=== PATIENT | male | born 1945 | race Caucasian/White ===

== ENCOUNTER → 2018-03-09 14:57 | Outpatient (CLI) | payer OTHER, MEDICAID, SELFPAY ==
--- NOTE | 2018-03-13 16:14 | PM.PFT.1 ---
Pulmonary Function Test Referral & Results Date Patient Seen: 03/09/18 Requesting provider: Allegra Romero Indication: Amiodarone therapy Results: The spirometry demonstrates an FVC of 4.10 L which is 106% of predicted. The FEV1 was measured at 3.01 L which is 102% of predicted. The FEV1/FVC ratio was 70 for which is 96% of predicted. Following the administration of bronchodilator there was a 45% improvement in FEF 25-75%. Lung volumes show an SVC of 4.72 L which is 133% of predicted. The diffusing capacity was measured at 35.33 which is 104% of predicted. The maximum voluntary ventilation was normal. Interpretation: This study demonstrates normal spirometry and normal diffusing capacity.
== END ==
PROVIDERS: Family Provider Internal Medicine; PCP Internal Medicine; Visit Provider Internal Medicine Cardiovascular Disease
DX: Z51.81 Encounter for therapeutic drug level monitoring (principal); Z79.899 Other long term (current) drug therapy
CPT/HCPCS: 94010; 94060; 94726; 94729

== ENCOUNTER → 2018-06-12 14:33 | Outpatient (CLI) | payer OTHER, MEDICAID, SELFPAY ==
[2018-06-12 16:36] LABS: Alanine Aminotransferase 25 IU/L (21-72); Albumin 4.1 g/dL (3.5-5.0); Albumin Globulin Ratio 1.2 (1.0-2.8); Alkaline Phosphatase 77 U/L (38-126); Aspartate Aminotransferase 26 IU/L (17-59); BUN Creatinine Ratio 16.7 (6-22); Bilirubin Total 0.7 mg/dL (0.2-1.3); Blood Urea Nitrogen 15 mg/dL (9-20); Calcium 9.6 mg/dL (8.4-10.2); Carbon Dioxide 28 mmol/L (22-32); Chloride 102 mmol/L (98-107); Estimated Glomerular Filt Rate > 60.0 mL/min (>60); Globulin 3.3 g/dL (1.7-4.1); Glucose 105 mg/dL (80-110); HEMOLYSIS < 15 (0-50); Potassium 3.9 mmol/L (3.4-5.1); Sodium 140 mmol/L (137-145); Total Protein 7.4 g/dL (6.3-8.2)
[2018-06-12 17:02] LABS: Thyroid Stimulating Hormone 1.44 uIU/mL (0.47-4.68)
== END ==
PROVIDERS: Family Provider Internal Medicine; PCP Internal Medicine; Visit Provider Internal Medicine Cardiovascular Disease
DX: Z51.81 Encounter for therapeutic drug level monitoring (principal); Z79.899 Other long term (current) drug therapy
CPT/HCPCS: 36415; 80053; 84443

== ENCOUNTER 2018-07-03 10:51 | Day surgery (SDC) | payer OTHER, MEDICAID, SELFPAY ==
--- NOTE | 2018-07-03 | PATH_ITS ---
[facility] Accession Number: [id number] . 01 Material submitted: . PART A: SIGMOID POLYPS AT 20CM X3 PART B: BIOPSY POLYP AT ILEAL CECAL VALVE PART C: ASCENDING COLON POLYP AT 85CM . 02 Diagnosis: A. Sigmoid Polyps at 20 cm x3: Sessile serrated adenoma (multiple fragments). . B. Biopsy Polyp at Ileocecal Valve: Sessile serrated adenoma (multiple fragments). . C. Ascending Colon Polyp at 85 cm, Biopsy: Portions of sessile serrated adenoma x2. MRV/07/05/2018 . 02 Electronically signed: . Gabi Fritz MD, Pathologist NPI- [id number] . 01 Gross description: . Part A: SIGMOID POLYPS AT 20CM X3: Received in formalin are multiple fragment(s) of trujillo, soft tissue measuring 1.6 x 0.5 x 0.3 cm in aggregate submitted entirely in 1 cassette(s) Part B: BIOPSY POLYP AT ILEAL CECAL VALVE: Received in formalin are multiple fragment(s) of trujillo, soft tissue measuring 1.4 x 0.4 x 0.3 cm in aggregate submitted entirely in 1 cassette(s) Part C: ASCENDING COLON POLYP AT 85CM: Received in formalin are 2 fragment(s) of trujillo, soft tissue measuring 1.1 x 0.5 x 0.5 cm to 0.6 x 0.5 x 0.5 cm which are inked, bisected and submitted entirely in 2 cassette(s) /CKI /CKI . 02 Pathologist provided ICD-10: K63.5 . 02 CPT . 066989, [id number], [id number] Performed at: [address] [id number] MD Nicholas Frederick MD Phone: [phone] Performed at: 02 [facility] [address] [place] [id number] MD Jose Daniel Ortiz MD Phone: [phone]
[2018-07-03 11:18] VITALS: BP 127/80; PULSE 57; RESP 16; TEMP 36.3; O2SAT 96; BMI 26.4
--- NOTE | 2018-07-03 11:21 | PM.PREOP ---
Pre-operative Note Interval Note Pre-op Check: Yes History & Physical Reviewed by Physician and Yes Exam Performed Changes: No H&P completed within 30 days and has changed as indicated here:: Patient seen and examined again today. His history physical examination as documented and on the chart in the last 30 days has not changed. He has stopped his anticoagulation accordingly. We will proceed with colonoscopy under anesthesia today as planned.
[2018-07-03] MEDS: LACTATED RINGERS 1,000 ML 100 ML IV (11:23)
[2018-07-03] MEDS: LACTATED RINGERS 1,000 ML 42 ML IV (12:17)
[2018-07-03 12:27] VITALS: BP 107/72; PULSE 52; RESP 15; TEMP 36.2; O2SAT 100
--- NOTE | 2018-07-03 12:30 | PM.OP.ENDO ---
Operative Date/Time/Diagnoses Date of procedure: 07/03/18 Time of procedure: 12:30 Pre-op diagnosis: Colorectal screening Post-op diagnosis: other (Pandiverticulosis and multiple colon polyps) Procedure & Clinicians Study performed: Colonoscopy with hot snare polypectomy, Mayte ink tattoo injection, and cold forceps polypectomies Same procedure as scheduled: Yes Indications: 73-year-old male presenting for colorectal screening. He has never had any type of examination for such. However, he has multiple comorbid medical conditions including coronary disease, atrial fibrillation with uncontrolled rate, prior transient ischemic attacks, and chronic anticoagulation therapy. Therapy was adjusted accordingly but Anesthesia Services were clearly indicated given the patient's significant comorbid medical conditions, elevated ASA categorization, and risk of bleeding. Therefore colonoscopy was planned in conjunction with anesthesia. Surgeon: Anand Daniels Procedure Notes SCOAP/Timeout: Yes Procedure in detail: After obtaining informed consent, the patient was brought to the GI suite and placed in the left lateral decubitus position on the examination table. After placement of appropriate monitors, the patient was given incremental doses of anesthesia. Please see the anesthesia record for details. A time out was held per SCOAP protocol. A digital rectal examination was performed and did not reveal any masses or obstructing lesions. The colonoscope was gently passed into the patient's anus and the entire colon navigated to the level of the cecum with minimal difficulty. Once in the cecum, the scope was withdrawn being sure to go before and beyond all mucosal folds and prominences and get an excellent examination. The findings are noted above. Mayte ink tattoo was performed at the site of the ascending colon polyp at 85 cm. At the level of the rectal vault, the scope was retroflexed and the internal anal canal was examined. The scope was straightened and air aspirated from the colon. The instrument was removed from the patient's body and the procedure was concluded. The patient was allowed to awaken from sedation without difficulty and taken to the post-anesthesia care unit in good condition. Scope withdrawal time: 23:14 min Sedation minutes: 0 Findings: diverticulosis and polyp (Multiple polyps at ileocecal valve, ascending colon, and sigmoid colon) Specimen(s): other (1. Ileocecal valve polyp biopsies 2. Ascending colon polyp at 85 cm 3. Sigmoid colon polyps x3 at 20 cm) Complications: none Recommendations: Colonscopy in 3 years (Pending biopsy results), High fiber diet and Will call with biopsy results Plan for aftercare: 1. Discharged home 2. Repeat colonoscopy in 3 years pending biopsy results Follow up: as needed Disposition: PACU
[2018-07-03 12:31] VITALS: BP 103/69; PULSE 53; RESP 12; O2SAT 99
--- NOTE | 2018-07-03 12:31 | SUR.PHASEI ---
awake and responding, oxygen discontinued.
[2018-07-03 12:36] VITALS: BP 101/75; PULSE 56; RESP 13; O2SAT 97
[2018-07-03 12:43] VITALS: BP 114/80; PULSE 54; RESP 15; O2SAT 98
[2018-07-03 13:12] VITALS: BP 112/78; PULSE 60; RESP 15; O2SAT 98
--- NOTE | 2018-07-03 13:19 | SUR.PHASEII ---
patient ready for discharge waiting for ride
--- NOTE | 2018-07-03 13:50 | SUR.PHASEII ---
patient left without written copy of discharge instruction. patient called message left on phone reviewing discharge instructions verbally. written copy mailed to patient.
== END 2018-07-03 13:30 | disposition home or self-care (01) ==
PROVIDERS: Family Provider Internal Medicine; PCP Internal Medicine; Visit Provider Surgery
PROC: 0DJD8ZZ Inspection of Lower Intestinal Tract, Via Natural or Artificial Opening Endoscopic (ICD-10-PCS; CPT 45378; principal; 2018-07-03 11:45)
DX: Z12.11 Encounter for screening for malignant neoplasm of colon (principal); I25.10 Atherosclerotic heart disease of native coronary artery without angina pectoris; Z86.73 Personal history of transient ischemic attack (TIA), and cerebral infarction without residual deficits; I10 Essential (primary) hypertension; Z79.01 Long term (current) use of anticoagulants; K57.30 Diverticulosis of large intestine without perforation or abscess without bleeding; D12.0 Benign neoplasm of cecum; D12.2 Benign neoplasm of ascending colon; D12.5 Benign neoplasm of sigmoid colon
CPT/HCPCS: 45381; 45385; 45380; 88305; J2250; J2704; J3010

== ENCOUNTER → 2019-03-26 15:47 | Outpatient (CLI) | payer OTHER, SELFPAY | PROVIDERS: Family Provider Internal Medicine; PCP Internal Medicine; Visit Provider Internal Medicine Cardiovascular Disease | DX: Z51.81 Encounter for therapeutic drug level monitoring (principal); Z79.899 Other long term (current) drug therapy | CPT/HCPCS: 36415; 84443 ==

== ENCOUNTER → 2019-10-14 16:25 | Outpatient (CLI) | payer OTHER, MEDICAID, SELFPAY ==
[2019-10-14 17:54] LABS: Alanine Aminotransferase 18 IU/L (<50); Albumin 4.1 g/dL (3.5-5.0); Albumin Globulin Ratio 1.4 (1.0-2.8); Alkaline Phosphatase 97 U/L (38-126); Aspartate Aminotransferase 31 IU/L (17-59); BUN Creatinine Ratio 18.9 (6-22); Bilirubin Total 0.5 mg/dL (0.2-1.3); Blood Urea Nitrogen 17 mg/dL (9-20); Calcium 9.8 mg/dL (8.4-10.2); Carbon Dioxide 30 mmol/L (22-32); Chloride 101 mmol/L (98-107); Estimated Glomerular Filt Rate > 60.0 mL/min (>60); Glucose 97 mg/dL (80-110); HEMOLYSIS < 15 (0-50); Potassium 4.3 mmol/L (3.4-5.1); Sodium 137 mmol/L (137-145); Total Protein 7.1 g/dL (6.3-8.2)
== END ==
PROVIDERS: Family Provider Internal Medicine; PCP Internal Medicine; Visit Provider Internal Medicine Cardiovascular Disease
DX: I48.0 Paroxysmal atrial fibrillation (principal)
CPT/HCPCS: 36415; 80053

== ENCOUNTER → 2020-06-11 12:15 | Outpatient (CLI) | payer OTHER, SELFPAY ==
[2020-06-11 13:43] LABS: Alanine Aminotransferase 23 IU/L (<50); Albumin 4.3 g/dL (3.5-5.0); Albumin Globulin Ratio 1.4 (1.0-2.8); Alkaline Phosphatase 91 U/L (38-126); Aspartate Aminotransferase 32 IU/L (17-59); BUN Creatinine Ratio 16.7 (6-22); Bilirubin Total 0.8 mg/dL (0.2-1.3); Blood Urea Nitrogen 12 mg/dL (9-20); Calcium 9.9 mg/dL (8.4-10.2); Carbon Dioxide 30 mmol/L (22-32); Chloride 102 mmol/L (98-107); Estimated Glomerular Filt Rate > 60.0 mL/min (>60); Globulin 3.1 g/dL (1.7-4.1); Glucose 103 mg/dL (80-110); HEMOLYSIS < 15 (0-50); Potassium 4.7 mmol/L (3.4-5.1); Sodium 136 mmol/L (137-145); Total Protein 7.4 g/dL (6.3-8.2)
== END ==
PROVIDERS: Family Provider Internal Medicine; PCP Student in an Organized Health Care Education/Training Program; Referring Provider Internal Medicine Cardiovascular Disease; Visit Provider Internal Medicine Cardiovascular Disease
DX: I48.0 Paroxysmal atrial fibrillation (principal)
CPT/HCPCS: 36415; 80053

== ENCOUNTER → 2020-07-07 14:45 | Outpatient (CLI) | payer OTHER, MEDICAID, SELFPAY ==
--- NOTE | 2020-07-07 15:03 | DI.ECHO.S_ITS ---
Echocardiogram Report + + :Name: YOLI MCKAY Study Date: 07/07/2020 Height: 71 in : :[facility] Weight: 199 lb : : Gender: Male BSA: 2.1 m2 : :: 1945 Age: 75 yrs BP: 127/86 mmHg: :Reason For Study: VALVULAR INSUFFICIENCY : :Ordering Physician: TEA, : :BERNABE Performed By: Carli Astudillo : :Referring: BERNABE METCALF : + + Interpretation Summary The left ventricle is normal in size. The ejection fraction is estimated to be 60-65%. There has been no significant change in LV EF since the previous exam. The right ventricle is mildly dilated. The right ventricular systolic function is normal. There is moderate mitral regurgitation. The mitral regurgitant jet is eccentrically directed. Compared to the prior echo study, there has been a decrease in the severity of mitral regurgitation. There is mild aortic regurgitation. There is mild tricuspid regurgitation. Compared to the prior echo exam, there has been a decrease in TR severity. The right ventricular systolic pressure is estimated to be at least 27 mmHg based on an estimated right atrial pressure of 3 mm Hg. Compared to the prior echo exam, there has been a decrease in the severity of pulmonary hypertension. The ascending aorta is mildly enlarged. Procedure: A two-dimensional transthoracic echocardiogram with color flow and Doppler was performed. The study quality was technically adequate. Comparison is made with the echocardiogram of 02/09/2017. The patient was in sinus rhythm with heart rates between 56-63 bpm during the exam. Left Ventricle: The left ventricle is normal in size. Proximal septal thickening is noted. A false chord is noted (normal variant). The ejection fraction is estimated to be 60-65%. There has been no significant change since the previous exam. There are no focal wall motion abnormalities. MV E/A: 1.1 Med Peak E' Chucky: 6.5 cm/sec E/E' med: 9.1. Right Ventricle: The right ventricle is mildly dilated. The right ventricular systolic function is normal. Atria: Both atria are mildly dilated. Both atria have significantly decreased in size since the prior echo exam. There is no Doppler evidence for an interatrial shunt. Mitral Valve: The mitral valve leaflets appear mildly thickened, but open well. There is mild mitral annular calcification. There is moderate mitral regurgitation. The mitral regurgitant jet is eccentrically directed. Compared to the prior echo study, there has been a decrease in the severity of mitral regurgitation. Aortic Valve: The aortic valve is trileaflet. The aortic valve opens well. The aortic valve is slightly calcified. There is no aortic valve stenosis. There is mild aortic regurgitation. Tricuspid Valve: The tricuspid valve is normal. There is mild tricuspid regurgitation. The right ventricular systolic pressure is estimated to be at least 27 mmHg based on an estimated right atrial pressure of 3 mm Hg. Compared to the prior echo exam, there has been a decrease in TR severity. Compared to the prior echo exam, there has been a decrease in the severity of pulmonary hypertension. Pulmonic Valve: The pulmonic valve leaflets are thin and pliable; valve motion is normal. There is mild pulmonic regurgitation. Great Vessels: The aortic root is normal size. The ascending aorta is mildly enlarged. There has been no significant change since the previous study. The IVC is of normal diameter and collapses greater than 50% with a sniff. This suggests a low right atrial pressure of 3 mm Hg. Pericardium/ Pleura There is no pericardial effusion. There is no pleural effusion. MMode/2D Measurements & Calculations LVIDd: 4.5 cm LVOT diam: 2.1 cm LVIDs: 2.9 cm Ao root diam: 3.8 cm FS: 35.1 % asc Aorta Diam: 3.9 cm EPSS: 0.50 cm Ao Arch Diam (Prox Trans): 2.6 cm IVSd: 1.1 cm LVPWd: 0.89 cm LV kirkland. diameter/BSA (cm/m^2): 2.1 LV sys. diameter/BSA (cm/m^2): 1.4 LA A2 area: 23.2 cm2 RA long axis: 6.7 cm LA A4 area: 23.8 cm2 RA area: 25.2 cm2 LA length (vol): 6.3 cm RA vol: 81.0 ml LA vol: 74.5 ml RA : 38.5 ml/m2 LA vol index: 35.4 ml/m2 IVC diam: 1.1 cm RVD1 (basal): 4.3 cm TAPSE: 2.8 cm Doppler Measurements & Calculations Ao V2 max: 141.7 cm/sec LVOT Max Chucky: 92.7 cm/sec Ao V2 mean: 84.7 cm/sec LV V1 max P.4 mmHg Ao max P.0 mmHg LV V1 VTI: 22.4 cm Ao mean P.5 mmHg DUSTY(I,D): 3.0 cm2 Ao V2 VTI: 26.4 cm DUSTY(V,D): 2.3 cm2 sev ratio: 0.85 DUSTY indexed to BSA (cm^2/m^2): 1.4 AI P1/2t: 1166 msec AI dec slope: 107.1 cm/sec2 MV E max chucky: 59.0 cm/sec TR max chucky: 245.1 cm/sec MV A max chucky: 55.8 cm/sec TR max P.0 mmHg MV E/A: 1.1 PA pr(Accel): 0.22 mmHg Med Peak E' Chucky: 6.5 cm/sec E/E' med: 9.1 Lat Peak E' Chucky: 8.2 cm/sec E/E' lat: 7.2 E/e' average: 8.2 MV dec time: 0.27 sec SV(LVOT): 78.0 ml Reading Physician:10:50 AM
== END ==
PROVIDERS: Family Provider Internal Medicine; PCP Student in an Organized Health Care Education/Training Program; Referring Provider Internal Medicine Cardiovascular Disease; Visit Provider Internal Medicine Cardiovascular Disease
DX: I08.3 Combined rheumatic disorders of mitral, aortic and tricuspid valves (principal); I77.89 Other specified disorders of arteries and arterioles
CPT/HCPCS: 93306

== ENCOUNTER 2020-12-14 13:56 | Emergency (ER) | payer OTHER, MEDICAID, SELFPAY ==
[2020-12-14] VITALS (24 sets, daily range): BP systolic 107–130; BP diastolic 79–97; PULSE 72–152; RESP 7–23; TEMP 36.1; O2SAT 92–97; BMI 28.1
--- NOTE | 2020-12-14 14:11 | ED.ARRPALP ---
HPI - Arrhythmia/Palpitations General Chief Complaint: Arrhythmia/Palpitations Stated Complaint: High Pulse, 155 BPM. Sent From Cardiology Time Seen by Provider: 12/14/20 14:02 Source: patient Mode of arrival: Wheelchair Limitations: no limitations History of Present Illness HPI narrative: 75-year-old male nonsmoker with history of AFib on Xarelto was sent by his grinder and plater for cardioversion. Patient has had palpitations for the past few days and bowel up with his grinder and plater who found him and in atrial flutter with a rate of the 150s. Patient has been on Xarelto for quite some time and has not missed a dose in the past 4 weeks. He is not dizzy nor weak or lightheaded. He denies any chest pain or shortness of breath. He denies any nausea, vomiting or diarrhea. He has had no fever or chills. Related Data Home Medications Medication Instructions Recorded Confirmed amiodarone 100 mg tablet 100 mg PO DAILY 06/27/18 07/03/18 cholecalciferol (vitamin D3) 50 2,000 unit PO DAILY 06/27/18 07/03/18 mcg (2,000 unit) capsule opmekjip-pie-pmpbm acid 300 1 tab PO DAILY 06/27/18 06/27/18 mcg-lycopene 600 mcg-lutein 300 mcg tablet vitamin B complex 1 tab PO DAILY 06/27/18 07/03/18 Previous Rx's Medication Instructions Recorded folic acid 1 mg PO QDAY #30 tab 02/12/17 metoprolol succinate 100 mg PO BID #60 tab 02/12/17 rivaroxaban [Xarelto] 10 mg PO QDAY #30 tab 02/12/17 enoxaparin 100 mg/mL subcutaneous 100 mg SUBCUT DAILY #5 ml 06/27/18 syringe amiodarone See Rx Instructions .ROUTE 12/14/20 .COMPLEX #91 tab Allergies Allergy/AdvReac Type Severity Reaction Status Date / Time No Known Drug Allergies Allergy Verified 12/14/20 14:08 Review of Systems Constitutional Constitutional: Denies chills, Denies fatigue, Denies fever(s), Denies frequent falls, Denies lethargy and Denies weakness Eyes Eyes: Denies change in vision, Denies eye discharge, Denies irritation and Denies loss of vision ENT Ears, Nose, Mouth, and Throat: Denies change in voice, Denies dizziness, Denies neck pain, Denies sore throat and Denies throat swelling Cardiovascular Cardiovascular: Denies chest pain, Reports irregular heart rhythm, Denies lightheadedness, Reports palpitations, Denies dyspnea, Denies dyspnea on exertion and Denies orthopnea Respiratory Respiratory: Denies cough, Denies dyspnea, Denies dyspnea on exertion and Denies wheezing Gastrointestinal Gastrointestinal: Denies abdominal pain, Denies change in bowel habits, Denies diarrhea, Denies nausea and Denies vomiting Musculoskeletal Musculoskeletal: Denies neck pain and Denies numbness Integumentary/Breasts Skin/Breast: Denies pruritus, Denies erythema, Denies rash and Denies wounds Neurologic Neurologic: Denies behavioral changes, Denies confusion, Denies dizziness, Denies frequent falls, Denies loss of vision, Denies numbness and Denies weakness Psychiatric Psychiatric: Denies anxiety, Denies behavioral changes, Denies confusion, Denies depression, Denies homicidal ideation and Denies suicidal ideation Endocrine Endocrine: Denies fatigue, Denies flushing and Reports palpitations Hematologic/Lymphatic Hematologic/Lymphatic: Denies easy bruising Allergic/Immunologic Allergic/Immunologic: Denies urticaria, Denies throat swelling and Denies wheezing Patient History Medical History Atrial fibrillation Atrial fibrillation status post cardioversion History of alcohol abuse History of tobacco use Hypertension Mitral valve regurgitation Tricuspid valve regurgitation Surgical History History of inguinal hernia repair History of tonsillectomy Family History Mother Cancer Social History household members: significant other Smoking Status: Never smoker alcohol intake: current substance use type: does not use Smoking Status: Never smoker alcohol intake frequency: 3 or more drinks per day Alcohol type: beer and wine Substance Use Type: does not use Exam Narrative Exam Narrative: GENERAL: [75] year old patient appears stated age. Well-nourished, well-developed patient, in mild distress. HEAD: Atraumatic. Normocephalic. EYES: Pupils equal round and reactive. Extraocular motions intact. No scleral icterus. No injection or drainage. ENT: Nose without bleeding, purulent drainage. Throat without erythema, tonsillar hypertrophy or exudate. Airway patent. NECK: Trachea midline. Non tender CARDIOVASCULAR: Tachycardic but regular rhythm without murmurs, gallops, or rubs. RESPIRATORY: Clear to auscultation. Breath sounds equal bilaterally. No wheezes, rales, or rhonchi. GASTROINTESTINAL: Abdomen soft, non-tender, nondistended. EXTREMITIES: No edema or joint tenderness. BACK: Nontender without deformity or crepitance. No flank tenderness. NEURO: AOx3. SKIN: No rash or erythema of visible areas Initial Vital Signs Initial Vital Signs: Vital Signs Temperature 97.0 F L 12/14/20 14:06 Pulse Rate 152 H 12/14/20 14:06 Respiratory Rate 12 12/14/20 14:06 Blood Pressure 121/90 12/14/20 14:06 Pulse Oximetry 96 12/14/20 14:06 Procedures Cardioversion Consent Signed: Yes Stability: Stable Number of attempts (shocks): 1 Joules used: 50 Cardiac rhythm post-cardioversion: NSR Procedural Sedation Consent signed: Yes Time out performed: Yes Indication: cardioversion Presedation Evaluation: Rapid A Flutter ASA Class: II Mallampati Airway Classification: Class II Preparation: air sampling and monitoring applied, pulse oximeter, capnometry used, supplemental O2 applied, suction/airway equipment at bedside and IV secured IV Propofol dose (mg): 50 Intraservice time/total sedation time (min): 10 ED Sedation Level: Moderate (Concious) Patient Tolerated Procedure: Well Complications: none Course Orders Ordered: ED Orders 12/14/20 14:04 EKG-12 Lead Stat 12/14/20 14:19 Complete Blood Count AUTO DIFF Stat Comprehensive Metabolic Panel Stat Magnesium Stat 12/14/20 14:21 COVID19 Stat Discontinued Medications Sodium Chloride (Normal Saline 0.9%) 1,000 mls @ 125 mls/hr IV CONT PIYUSH Last Infusion: 12/14/20 16:07 Dose: 0 mls/hr Documented by: Admin: 12/14/20 15:15 Dose: 125 mls/hr Documented by: ZUNILDA Propofol (Propofol 200 Mg/20 Ml Vial) 100 mg IV NOW ONE Stop: 12/14/20 14:04 Last Admin: 12/14/20 15:16 Dose: 50 mg Documented by: ZUNILDA Vital Signs Vital signs: Vital Signs - 8 hr 12/14/20 14:06 12/14/20 14:24 12/14/20 14:30 Temperature 97.0 F L Pulse Rate 152 H 151 H 152 H Respiratory Rate 12 21 16 Blood Pressure 121/90 Pulse Oximetry 96 97 96 12/14/20 14:35 12/14/20 14:40 12/14/20 14:45 Temperature Pulse Rate 152 H 152 H 152 H Respiratory Rate 14 11 L 11 L Blood Pressure Pulse Oximetry 95 95 95 12/14/20 14:50 12/14/20 14:55 12/14/20 15:00 Temperature Pulse Rate 152 H 152 H 151 H Respiratory Rate 7 L 12 19 Blood Pressure Pulse Oximetry 94 93 95 12/14/20 15:04 12/14/20 15:05 12/14/20 15:10 Temperature Pulse Rate 150 H 150 H 150 H Respiratory Rate 23 18 14 Blood Pressure 124/97 H 120/87 123/93 H Pulse Oximetry 95 95 95 12/14/20 15:15 12/14/20 15:20 12/14/20 15:25 Temperature Pulse Rate 150 H 75 77 Respiratory Rate 13 15 16 Blood Pressure 119/87 110/85 Pulse Oximetry 96 92 93 12/14/20 15:30 12/14/20 15:35 12/14/20 15:36 Temperature Pulse Rate 73 72 73 Respiratory Rate 10 L 17 16 Blood Pressure 107/79 112/84 Pulse Oximetry 95 95 96 12/14/20 15:40 12/14/20 15:45 12/14/20 15:50 Temperature Pulse Rate 74 73 72 Respiratory Rate 14 18 13 Blood Pressure 114/84 119/85 121/85 Pulse Oximetry 96 96 95 12/14/20 15:55 12/14/20 16:00 12/14/20 16:05 Temperature Pulse Rate 72 74 73 Respiratory Rate 17 12 17 Blood Pressure 119/83 130/94 H 124/91 H Pulse Oximetry 96 97 97 MDM - Arrhythmia/Palpitations Lab Data Result diagrams: 12/14/20 14:19 12/14/20 14:19 Labs: Lab Results 12/14/20 12/14/20 12/14/20 Range/Units 14:19 14:19 14:21 WBC 4.6 (4.5-11.0) X10^3/uL RBC 5.05 (4.5-5.9) X10^6/uL Hgb 16.0 (13.5-17.5) g/dL Hct 46.2 (41-53) % MCV 91.4 (80-100) fL MCH 31.8 (26-34) PG MCHC 34.7 (30-36) % RDW 13.2 (11.6-14.8) % Plt Count 207 (150-400) X10^3/uL Neut % (Auto) 45.1 L (50-75) % Lymph % (Auto) 32.7 (25-40) % [place] % (Auto) 18.9 H (3-14) % Eos % (Auto) 2.1 (2-4) % Baso % (Auto) 1.2 (0-2) % Neut # (Auto) 2100 (4008-2007) /uL Lymph # (Auto) 1500 (8200-4878) /uL [place] # (Auto) 900 (0-900) /uL Eos # (Auto) 100 (0-450) /uL Baso # (Auto) 100 (0-100) /uL Sodium 139 (137-145) mmol/L Potassium 3.8 (3.4-5.1) mmol/L Chloride 106 (98-107) mmol/L Carbon Dioxide 28 (22-32) mmol/L BUN 24 H (9-20) mg/dL Creatinine 0.67 (0.66-1.25) mg/dL Estimated GFR > 60.0 (>60) mL/min BUN/Creatinine Ratio 35.8 H (6-22) Glucose 110 (80-110) mg/dL Calcium 9.3 (8.4-10.2) mg/dL Magnesium 2.0 (1.6-2.3) mg/dL Total Bilirubin 0.5 (0.2-1.3) mg/dL AST 40 (17-59) IU/L ALT 33 (<50) IU/L Alkaline Phosphatase 70 (38-126) U/L Total Protein 7.0 (6.3-8.2) g/dL Albumin 3.9 (3.5-5.0) g/dL Globulin 3.1 (1.7-4.1) g/dL Albumin/Globulin Ratio 1.3 (1.0-2.8) SARS-CoV-2 (PCR) Negative (Negative) Discharge Plan Departure Patient Disposition: Home Clinical Impression: Atrial flutter Qualifiers: Atrial flutter type: typical Qualified Code(s): I48.3 - Typical atrial flutter Instructions: DI for Atrial Flutter Activity Restrictions/Additional Instructions: *You have been diagnosed with [atrial flutter with electrical cardioversion] *What to do: *Take medications as directed: Please begin taking amiodarone again as directed *Follow up with your primary care provider in 2-3 days, call for an appointment. Let them know you were seen in the Emergency Department and that we ask that you be seen in follow up *Return to ER if you should have any new, worsening or concerning symptoms Prescriptions: New amiodarone 100 mg tablet See Rx Instructions .ROUTE .COMPLEX Qty: 91 RF: 0 No Action folic acid 1 MG tablet 1 mg PO QDAY Qty: 30 RF: 0 metoprolol succinate 50 MG tablet extended release 24 hr 100 mg PO BID Qty: 60 RF: 1 rivaroxaban [Xarelto] 10 MG tablet 10 mg PO QDAY Qty: 30 RF: 1 amiodarone 100 mg tablet 100 mg PO DAILY RF: 0 zymxvxlt-edc-AR-lycopen-lutein [Centrum Silver Ultra Men's] 300-600-300 mcg tablet 1 tab PO DAILY RF: 0 cholecalciferol (vitamin D3) 2,000 unit capsule 2,000 unit PO DAILY RF: 0 vitamin B complex [B Complex 1] tablet 1 tab PO DAILY RF: 0 enoxaparin [Lovenox] 100 mg/mL syringe 100 mg SUBCUT DAILY Qty: 5 RF: 0 Referrals: Sonja Whelan MD [Primary Care Provider] -
[2020-12-14 14:31] LABS: Add Manual Diff / Slide Review NO; Basophils Absolute Auto 100 /uL (0-100); Basophils Percent Auto 1.2 % (0-2); Eosinophils Absolute Auto 100 /uL (0-450); Eosinophils Percent Auto 2.1 % (2-4); Hematocrit 46.2 % (41-53); Lymphocytes Absolute Auto 1500 /uL (1100-4500); Lymphocytes Percent Auto 32.7 % (25-40); Mean Corpuscular HGB Conc 34.7 % (30-36); Mean Corpuscular Hemoglobin 31.8 PG (26-34); Mean Corpuscular Volume 91.4 fL (80-100); Monocytes Absolute Auto 900 /uL (0-900); Monocytes Percent Auto 18.9 % (3-14); Neutrophils Absolute Auto 2100 /uL (1500-7000); Neutrophils Percent Auto 45.1 % (50-75); Platelet Count 207 X10^3/uL (150-400); Red Blood Cell Count 5.05 X10^6/uL (4.5-5.9); Red Cell Distribution Width 13.2 % (11.6-14.8); White Blood Cell Count 4.6 X10^3/uL (4.5-11.0)
[2020-12-14 14:46] LABS: Alanine Aminotransferase 33 IU/L (<50); Albumin 3.9 g/dL (3.5-5.0); Albumin Globulin Ratio 1.3 (1.0-2.8); Alkaline Phosphatase 70 U/L (38-126); Aspartate Aminotransferase 40 IU/L (17-59); BUN Creatinine Ratio 35.8 (6-22); Bilirubin Total 0.5 mg/dL (0.2-1.3); Blood Urea Nitrogen 24 mg/dL (9-20); Calcium 9.3 mg/dL (8.4-10.2); Carbon Dioxide 28 mmol/L (22-32); Chloride 106 mmol/L (98-107); Estimated Glomerular Filt Rate > 60.0 mL/min (>60); Globulin 3.1 g/dL (1.7-4.1); Glucose 110 mg/dL (80-110); HEMOLYSIS < 15 (0-50); Potassium 3.8 mmol/L (3.4-5.1); Sodium 139 mmol/L (137-145)
[2020-12-14 14:51] LABS: COVID19 -Nasal RAPID Negative (Negative)
[2020-12-14] MEDS: SODIUM CHLORIDE 0.9% 1,000 ML 125 ML IV (15:15)
[2020-12-14] MEDS: propofoL 200 MG/20 ML VIAL 100 MG IV (15:16)
--- NOTE | 2020-12-14 15:43 | PC.NURSE ---
tolerated cardioversion with no complications or interventions to support airway or hydrodynamics.patient remembers nothing of the event, reports he thought he was making dinner for his household. patient having clear coherent conversation with staff post procedure
== END 2020-12-14 16:26 | disposition home or self-care (01) ==
PROVIDERS: Emergency Provider Emergency Medicine; Family Provider Internal Medicine; PCP Student in an Organized Health Care Education/Training Program
DX: I48.3 Typical atrial flutter (principal); Z79.01 Long term (current) use of anticoagulants; I10 Essential (primary) hypertension; Z20.822 Contact with and (suspected) exposure to COVID-19
CPT/HCPCS: 36415; 80053; 83735; 85025; 87635; 92960; 93005; 93010; 96360; 99152; 99284; 99285; 99291; C9803; J2704

== ENCOUNTER 2020-12-27 15:23 | Emergency (ER) | payer OTHER, MEDICAID, SELFPAY ==
[2020-12-27] VITALS (48 sets, daily range): BP systolic 87–137; BP diastolic 60–84; PULSE 60–123; RESP 7–40; TEMP 35.9–36.8; O2SAT 91–99; BMI 27.8
--- NOTE | 2020-12-27 15:34 | ED.GENADULT ---
HPI - General Adult General Chief complaint: Arrhythmia/Palpitations Stated complaint: cardioverted 15th, erradic heart rate now Time Seen by Provider: 12/27/20 15:26 Source: patient Mode of arrival: Ambulatory Limitations: no limitations History of Present Illness HPI narrative: Patient is a 75-year-old male who was seen here approximately 2 weeks ago for atrial flutter and was cardioverted and according to the note this was a successful cardioversion. He has been on Xarelto. He states that he has taken it every day and has not missed a dose to in the past month. He states that yesterday he started noticing his heart fluttering. He is not having any chest pain or shortness of breath or lightheadedness. He states he can feel it at night when he is lying down in bed. He came in today because the symptoms have continued. Review of his last note shows that he was discharged home on an anti arrhythmic however he states that this plan have been changed after talk with his regional vice president surgical sales and he has an appointment in approximately 10 days to discuss an ablation. Related Data Home Medications Medication Instructions Recorded Confirmed amiodarone 100 mg tablet 100 mg PO DAILY 06/27/18 07/03/18 cholecalciferol (vitamin D3) 50 2,000 unit PO DAILY 06/27/18 07/03/18 mcg (2,000 unit) capsule fihfrtwn-jqw-uanpu acid 300 1 tab PO DAILY 06/27/18 06/27/18 mcg-lycopene 600 mcg-lutein 300 mcg tablet vitamin B complex 1 tab PO DAILY 06/27/18 07/03/18 Previous Rx's Medication Instructions Recorded folic acid 1 mg PO QDAY #30 tab 02/12/17 metoprolol succinate 100 mg PO BID #60 tab 02/12/17 rivaroxaban [Xarelto] 10 mg PO QDAY #30 tab 02/12/17 enoxaparin 100 mg/mL subcutaneous 100 mg SUBCUT DAILY #5 ml 06/27/18 syringe amiodarone See Rx Instructions .ROUTE 12/14/20 .COMPLEX #91 tab Allergies Allergy/AdvReac Type Severity Reaction Status Date / Time No Known Drug Allergies Allergy Verified 12/27/20 15:37 Review of Systems Constitutional Constitutional: Denies fever(s) and Denies headache(s) ENT Ears, Nose, Mouth, and Throat: Denies headache(s) Cardiovascular Cardiovascular: Denies chest pain, Reports rapid heart rate and Denies dyspnea Respiratory Respiratory: Denies cough and Denies dyspnea Gastrointestinal Gastrointestinal: Denies abdominal pain and Denies nausea Genitourinary Genitourinary: Denies dysuria Genitourinary: Denies dysuria Musculoskeletal Musculoskeletal: Denies arthralgias and Denies myalgias Integumentary/Breasts Skin/Breast: Denies lesions and Denies rash Neurologic Neurologic: Denies behavioral changes and Denies headache(s) Psychiatric Psychiatric: Denies behavioral changes Hematologic/Lymphatic On Anticoagulants: Yes Allergic/Immunologic Allergic/Immunologic: Denies urticaria Patient History Medical History Atrial fibrillation Atrial fibrillation status post cardioversion History of alcohol abuse History of tobacco use Hypertension Mitral valve regurgitation Tricuspid valve regurgitation Surgical History History of inguinal hernia repair History of tonsillectomy Family History Mother Cancer Social History household members: significant other Smoking Status: Never smoker alcohol intake: current substance use type: does not use Smoking Status: Never smoker alcohol intake frequency: 3 or more drinks per day Alcohol type: beer and wine Substance Use Type: does not use Exam Initial Vital Signs Initial Vital Signs: Vital Signs Temperature 98.2 F 12/27/20 15:32 Pulse Rate 120 H 12/27/20 15:32 Respiratory Rate 18 12/27/20 15:32 Blood Pressure 123/83 12/27/20 15:32 Pulse Oximetry 98 12/27/20 15:32 Const General: cooperative and comfortable Limitations: mental status not altered HENMT Head: normal to inspection and normocephalic Resp Effort & Inspection: normal respiratory effort Cardio Rate: tachycardic Rhythm: abnormal rhythm GI Inspection: non-distended Palpation: soft Skin Lesions: no lesions Rashes: no rashes Neuro General: patient alert, patient awake and patient oriented x3 Cognition: normal cognition Speech: speech normal Extrem General: capillary refill normal Psych Appearance: grossly normal and well kempt Procedures Cardioversion Consent Signed: Yes Indication: AFib Stability: Stable Number of attempts (shocks): 1 Joules used: 120 Cardiac rhythm post-cardioversion: Sinus rhythm Procedural Sedation Consent signed: Yes Time out performed: Yes Indication: cardioversion Preparation: residential monitor applied, pulse oximeter, capnometry used, supplemental O2 applied and suction/airway equipment at bedside Fentanyl: IV Fentanyl dose (mcg): 25 IV Propofol dose (mg): 70 Intraservice time/total sedation time (min): 15 ED Sedation Level: Moderate (Concious) Patient Tolerated Procedure: Well Complications: hypoventilation Interventions: Airway repositioned and Assist by BVM Course Orders Ordered: ED Orders 12/27/20 15:28 EKG-12 Lead Stat 12/27/20 15:43 COVID19 Stat Complete Blood Count AUTO DIFF Stat Comprehensive Metabolic Panel Stat Lipase Stat Partial Thromboplastin Time Stat Prothrombin Time INR Stat Troponin & CK Cardiac Panel Stat 12/27/20 15:48 XR chest 1V Stat EKG-12 Lead Stat 12/27/20 15:51 RT Consult Eval and Treat Now Discontinued Medications Fentanyl (Fentanyl 100 Mcg/2 Ml Inj) 25 mcg IV NOW ONE Stop: 12/27/20 15:53 Last Admin: 12/27/20 16:26 Dose: 25 mcg Documented by: TIARA Sodium Chloride (Normal Saline 0.9%) 500 mls @ 1,000 mls/hr IV BOLUS ONE Stop: 12/27/20 17:32 Last Infusion: 12/27/20 17:38 Dose: 0 mls/hr Documented by: Admin: 12/27/20 17:03 Dose: 1,000 mls/hr Documented by: TIARA Propofol (Propofol 200 Mg/20 Ml Vial) 90 mg 1 mg/kg (90 mg) IV NOW ONE Stop: 12/27/20 15:52 Last Admin: 12/27/20 16:32 Dose: 70 mg Documented by: TIARA Vital Signs Vital signs: Vital Signs - 8 hr 12/27/20 15:32 12/27/20 15:34 12/27/20 15:35 Temperature 98.2 F Pulse Rate 120 H 84 118 H Respiratory Rate 18 14 15 Blood Pressure 123/83 Blood Pressure [Right Arm] Pulse Oximetry 98 96 96 12/27/20 15:40 12/27/20 15:45 12/27/20 15:50 Temperature Pulse Rate 113 H 121 H 111 H Respiratory Rate 20 23 18 Blood Pressure Blood Pressure [Right Arm] Pulse Oximetry 95 95 96 12/27/20 15:55 12/27/20 16:00 12/27/20 16:05 Temperature Pulse Rate 121 H 108 H 113 H Respiratory Rate 16 16 15 Blood Pressure Blood Pressure [Right Arm] Pulse Oximetry 97 98 97 12/27/20 16:10 12/27/20 16:13 12/27/20 16:15 Temperature 98.0 F Pulse Rate 110 H 123 H 102 H Respiratory Rate 13 14 13 Blood Pressure Blood Pressure [Right Arm] 123/83 Pulse Oximetry 99 97 98 12/27/20 16:16 12/27/20 16:20 12/27/20 16:25 Temperature 98.0 F Pulse Rate 112 H 118 H 111 H Respiratory Rate 12 15 17 Blood Pressure 103/69 Blood Pressure [Right Arm] 109/76 Pulse Oximetry 96 98 98 12/27/20 16:30 12/27/20 16:34 12/27/20 16:35 Temperature 96.7 F L Pulse Rate 100 H 69 65 Respiratory Rate 13 10 L 24 Blood Pressure 109/76 111/83 Blood Pressure [Right Arm] 111/83 Pulse Oximetry 98 98 92 12/27/20 16:39 12/27/20 16:40 12/27/20 16:43 Temperature 96.8 F L 96.8 F L Pulse Rate 63 61 64 Respiratory Rate 14 18 12 Blood Pressure 102/72 Blood Pressure [Right Arm] 102/72 110/74 Pulse Oximetry 98 99 96 12/27/20 16:45 12/27/20 16:49 12/27/20 16:50 Temperature Pulse Rate 67 63 63 Respiratory Rate 16 10 L 14 Blood Pressure 110/74 Blood Pressure [Right Arm] 87/60 L Pulse Oximetry 96 96 97 12/27/20 16:51 12/27/20 16:54 12/27/20 16:55 Temperature 96.6 F L Pulse Rate 66 61 62 Respiratory Rate 7 L 10 L 12 Blood Pressure 87/60 L 91/64 Blood Pressure [Right Arm] 91/64 Pulse Oximetry 96 96 97 12/27/20 17:00 12/27/20 17:05 12/27/20 17:08 Temperature Pulse Rate 61 62 62 Respiratory Rate 8 L 10 L 17 Blood Pressure 87/67 L 90/70 Blood Pressure [Right Arm] 90/70 Pulse Oximetry 97 97 96 12/27/20 17:10 12/27/20 17:15 12/27/20 17:20 Temperature Pulse Rate 61 60 63 Respiratory Rate 10 L 9 L 16 Blood Pressure 107/68 108/74 110/76 Blood Pressure [Right Arm] Pulse Oximetry 96 96 96 12/27/20 17:25 12/27/20 17:30 12/27/20 17:31 Temperature Pulse Rate 64 63 63 Respiratory Rate 13 7 L 13 Blood Pressure 117/80 130/81 Blood Pressure [Right Arm] Pulse Oximetry 96 98 97 12/27/20 17:35 12/27/20 17:40 12/27/20 17:45 Temperature Pulse Rate 64 63 66 Respiratory Rate 15 18 17 Blood Pressure 131/82 121/81 137/75 Blood Pressure [Right Arm] Pulse Oximetry 96 98 97 Medical Decision Making Medical Records Medical records reviewed: Yes I reviewed the patient's medical records. Lab Data Lab results reviewed: Yes I reviewed the patient's lab results. Result diagrams: 12/27/20 15:43 12/27/20 15:43 Labs: Lab Results 12/27/20 12/27/20 12/27/20 Range/Units 15:43 15:43 15:43 WBC 6.0 (4.5-11.0) X10^3/uL RBC 5.40 (4.5-5.9) X10^6/uL Hgb 16.9 (13.5-17.5) g/dL Hct 49.3 (41-53) % MCV 91.3 (80-100) fL MCH 31.3 (26-34) PG MCHC 34.3 (30-36) % RDW 12.9 (11.6-14.8) % Plt Count 268 (150-400) X10^3/uL Neut % (Auto) 47.2 L (50-75) % Lymph % (Auto) 35.0 (25-40) % Bates % (Auto) 15.3 H (3-14) % Eos % (Auto) 1.9 L (2-4) % Baso % (Auto) 0.6 (0-2) % Neut # (Auto) 2800 (6699-2152) /uL Lymph # (Auto) 2100 (7669-9554) /uL Bates # (Auto) 900 (0-900) /uL Eos # (Auto) 100 (0-450) /uL Baso # (Auto) 0 (0-100) /uL PT 16.4 H (10.1-12.7) SECONDS INR 1.4 H (0.9-1.3) APTT 42 H (26.4-36.2) SECONDS Sodium 138 (137-145) mmol/L Potassium 4.1 (3.4-5.1) mmol/L Chloride 108 H (98-107) mmol/L Carbon Dioxide 26 (22-32) mmol/L BUN 21 H (9-20) mg/dL Creatinine 0.78 (0.66-1.25) mg/dL Estimated GFR > 60.0 (>60) mL/min BUN/Creatinine Ratio 26.9 H (6-22) Glucose 82 (80-110) mg/dL Calcium 9.8 (8.4-10.2) mg/dL Total Bilirubin 0.6 (0.2-1.3) mg/dL AST 30 (17-59) IU/L ALT 24 (<50) IU/L Alkaline Phosphatase 70 (38-126) U/L Total Creatine Kinase 41 L (55-170) U/L CK-MB (CK-2) TNP CK-MB (CK-2) Rel Index TNP Troponin I < 0.012 (0.01-0.034) ng/mL Total Protein 7.3 (6.3-8.2) g/dL Albumin 4.1 (3.5-5.0) g/dL Globulin 3.2 (1.7-4.1) g/dL Albumin/Globulin Ratio 1.3 (1.0-2.8) Lipase 60 (23-300) U/L SARS-CoV-2 (PCR) (Negative) 12/27/20 Range/Units 15:43 WBC (4.5-11.0) X10^3/uL RBC (4.5-5.9) X10^6/uL Hgb (13.5-17.5) g/dL Hct (41-53) % MCV (80-100) fL MCH (26-34) PG MCHC (30-36) % RDW (11.6-14.8) % Plt Count (150-400) X10^3/uL Neut % (Auto) (50-75) % Lymph % (Auto) (25-40) % Bates % (Auto) (3-14) % Eos % (Auto) (2-4) % Baso % (Auto) (0-2) % Neut # (Auto) (6849-2901) /uL Lymph # (Auto) (0662-5261) /uL Bates # (Auto) (0-900) /uL Eos # (Auto) (0-450) /uL Baso # (Auto) (0-100) /uL PT (10.1-12.7) SECONDS INR (0.9-1.3) APTT (26.4-36.2) SECONDS Sodium (137-145) mmol/L Potassium (3.4-5.1) mmol/L Chloride (98-107) mmol/L Carbon Dioxide (22-32) mmol/L BUN (9-20) mg/dL Creatinine (0.66-1.25) mg/dL Estimated GFR (>60) mL/min BUN/Creatinine Ratio (6-22) Glucose (80-110) mg/dL Calcium (8.4-10.2) mg/dL Total Bilirubin (0.2-1.3) mg/dL AST (17-59) IU/L ALT (<50) IU/L Alkaline Phosphatase (38-126) U/L Total Creatine Kinase (55-170) U/L CK-MB (CK-2) CK-MB (CK-2) Rel Index Troponin I (0.01-0.034) ng/mL Total Protein (6.3-8.2) g/dL Albumin (3.5-5.0) g/dL Globulin (1.7-4.1) g/dL Albumin/Globulin Ratio (1.0-2.8) Lipase (23-300) U/L SARS-CoV-2 (PCR) Negative (Negative) Imaging Data Chest x-ray: Radiologist's Impression: [address] [id number] ReportSigned Patient: Andrew Lombardo TMR#: [id number]: 7Acct:[id number]/Sex: 75 / MDate of Service: 12/27/20Loc: EDAccession Number: [id number] Procedure: XR chest 1V Ordering Provider: Esteban Nathan D.O. PROCEDURE: XR CHEST 1V INDICATIONS: chest pain TECHNIQUE: One view of the chest was acquired. COMPARISON: [facility], CHEST 1 VIEW, 02/09/2017, 6:51. FINDINGS: Surgical changes and devices: None. Lungs and pleura: Lungs are clear. No pleural effusions or pneumothorax. Mediastinum: Mediastinal contours appear normal. Heart size is normal. Bones and chest wall: No suspicious bony lesions. Overlying soft tissues appear unremarkable. IMPRESSION: No acute process. Dictated by: Kiah Ty M.D. on 12/27/2020 at 15:16 Approved by: Kiah Ty M.D. on 12/27/2020 at 15:17 ECG Data Attestation: I personally reviewed and interpreted this ECG as follows: Prior ECG tracings: available for review Interpretation: Atrial flutter Ventricular rate of 100 Normal axis Normal QRS Post cardioversion EKG Sinus rhythm Ventricular rate is 68 Normal axis Normal QRS Normal QTC No ST T wave changes MDM Narrative Medical decision making narrative: Patient arrived in atrial flutter however his rate was anywhere between 101 20. He was not hypotensive. Had no chest pain. No shortness of breath. Discussed with him his options to include rate control versus rhythm control. After this discussion the patient opted for rhythm control. He was sedated as described above. He tolerated it relatively well however he did need some [id number]-[id number] respiratory assistance. He was never hypoxic. Cardioversion was successful. Will have him continue his medications. He was given return precautions and follow-up instructions. He expressed understanding and agreement. Discharge Plan Departure Patient Disposition: Home Clinical Impression: Atrial flutter Instructions: DI for Atrial Flutter, DI for Cardioversion Activity Restrictions/Additional Instructions: Recommend that you continue all of your medications as directed to include the Xarelto. Keep all of your schedule medical appointments. Recommend that you contact your regional vice president surgical sales tomorrow to discuss further workup or any medication changes. Return to the emergency department for any new or worsening symptoms Prescriptions: No Action folic acid 1 MG tablet 1 mg PO QDAY Qty: 30 RF: 0 metoprolol succinate 50 MG tablet extended release 24 hr 100 mg PO BID Qty: 60 RF: 1 rivaroxaban [Xarelto] 10 MG tablet 10 mg PO QDAY Qty: 30 RF: 1 amiodarone 100 mg tablet 100 mg PO DAILY RF: 0 [id number]-sfd-XZ-lycopen-lutein [Centrum Silver Ultra Men's] 300-600-300 mcg tablet 1 tab PO DAILY RF: 0 cholecalciferol (vitamin D3) 2,000 unit capsule 2,000 unit PO DAILY RF: 0 vitamin B complex [B Complex 1] tablet 1 tab PO DAILY RF: 0 enoxaparin [Lovenox] 100 mg/mL syringe 100 mg SUBCUT DAILY Qty: 5 RF: 0 amiodarone 100 mg tablet See Rx Instructions .ROUTE .COMPLEX Qty: 91 RF: 0 Referrals: Allegra Romero MD [Primary Care Provider] -
--- NOTE | 2020-12-27 15:48 | DI.RAD.S_ITS ---
PROCEDURE: XR CHEST 1V INDICATIONS: chest pain TECHNIQUE: One view of the chest was acquired. COMPARISON: Located Within [facility], , CHEST 1 VIEW, 02/09/2017, 6:51. FINDINGS: Surgical changes and devices: None. Lungs and pleura: Lungs are clear. No pleural effusions or pneumothorax. Mediastinum: Mediastinal contours appear normal. Heart size is normal. Bones and chest wall: No suspicious bony lesions. Overlying soft tissues appear unremarkable. IMPRESSION: No acute process. Dictated by: Kiah Ty M.D. on 12/27/2020 at 15:16 Approved by: Kiah Ty M.D. on 12/27/2020 at 15:17
[2020-12-27 15:58] LABS: Add Manual Diff / Slide Review NO; Basophils Absolute Auto 0 /uL (0-100); Basophils Percent Auto 0.6 % (0-2); Eosinophils Absolute Auto 100 /uL (0-450); Eosinophils Percent Auto 1.9 % (2-4); Hematocrit 49.3 % (41-53); Hemoglobin 16.9 g/dL (13.5-17.5); Lymphocytes Absolute Auto 2100 /uL (1100-4500); Mean Corpuscular HGB Conc 34.3 % (30-36); Mean Corpuscular Hemoglobin 31.3 PG (26-34); Mean Corpuscular Volume 91.3 fL (80-100); Monocytes Absolute Auto 900 /uL (0-900); Monocytes Percent Auto 15.3 % (3-14); Neutrophils Absolute Auto 2800 /uL (1500-7000); Neutrophils Percent Auto 47.2 % (50-75); Platelet Count 268 X10^3/uL (150-400); Red Cell Distribution Width 12.9 % (11.6-14.8)
[2020-12-27 15:59] LABS: INR 1.4 (0.9-1.3); Prothrombin Time 16.4 SECONDS (10.1-12.7)
[2020-12-27 16:02] LABS: PTT Partial Thromboplastin Tim 42 SECONDS (26.4-36.2)
[2020-12-27 16:04] LABS: Alanine Aminotransferase 24 IU/L (<50); Albumin 4.1 g/dL (3.5-5.0); Albumin Globulin Ratio 1.3 (1.0-2.8); Alkaline Phosphatase 70 U/L (38-126); Aspartate Aminotransferase 30 IU/L (17-59); BUN Creatinine Ratio 26.9 (6-22); Bilirubin Total 0.6 mg/dL (0.2-1.3); Blood Urea Nitrogen 21 mg/dL (9-20); Calcium 9.8 mg/dL (8.4-10.2); Carbon Dioxide 26 mmol/L (22-32); Chloride 108 mmol/L (98-107); Creatine Kinase 41 U/L (55-170); Estimated Glomerular Filt Rate > 60.0 mL/min (>60); Globulin 3.2 g/dL (1.7-4.1); Glucose 82 mg/dL (80-110); HEMOLYSIS 19 (0-50); Lipase 60 U/L (23-300); Potassium 4.1 mmol/L (3.4-5.1); Sodium 138 mmol/L (137-145); Total Protein 7.3 g/dL (6.3-8.2)
[2020-12-27 16:08] LABS: COVID19 -Nasal RAPID Negative (Negative)
[2020-12-27 16:15] LABS: Troponin I < 0.012 ng/mL (0.01-0.034)
[2020-12-27] MEDS: fentaNYL 100 MCG/2 ML INJ 25 MCG IV (16:26)
[2020-12-27] MEDS: propofoL 200 MG/20 ML VIAL 90 MG IV (16:32)
[2020-12-27] MEDS: SODIUM CHLORIDE 0.9% 500 ML 1000 ML IV (17:03)
== END 2020-12-27 18:42 | disposition home or self-care (01) ==
PROVIDERS: Emergency Provider Emergency Medicine; Family Provider Internal Medicine; PCP Internal Medicine Cardiovascular Disease; Referring Provider Internal Medicine Cardiovascular Disease
DX: I48.92 Unspecified atrial flutter (principal); Z79.01 Long term (current) use of anticoagulants; R07.9 Chest pain, unspecified; Z20.822 Contact with and (suspected) exposure to COVID-19
CPT/HCPCS: 36415; 71045; 80053; 82550; 83690; 84484; 85025; 85610; 85730; 87635; 92960; 93005; 96360; 99152; 99284; 99285; C9803; J2704; J3010

== ENCOUNTER → 2021-01-13 15:20 | Outpatient (CLI) | payer MEDICARE, MEDICAID, SELFPAY ==
[2021-01-13] MEDS: COVID-19 VACC #1, MRNA(MOD) 100 MCG/0.5 ML VIAL IM (15:30)
== END ==
PROVIDERS: Family Provider Internal Medicine; PCP Internal Medicine Cardiovascular Disease; Visit Provider Internal Medicine
DX: Z23 Encounter for immunization (principal)
CPT/HCPCS: 0011A; 91301

== ENCOUNTER → 2021-02-10 15:10 | Outpatient (CLI) | payer MEDICARE, MEDICAID, SELFPAY ==
[2021-02-10] MEDS: COVID-19 VACC #2, MRNA(MOD) 100 MCG/0.5 ML VIAL IM (15:17)
== END ==
PROVIDERS: Family Provider Internal Medicine; PCP Internal Medicine Cardiovascular Disease; Visit Provider Internal Medicine
DX: Z23 Encounter for immunization (principal)
CPT/HCPCS: 0012A; 91301

== ENCOUNTER → 2021-04-14 17:10 | Outpatient (CLI) | payer OTHER, SELFPAY ==
[2021-04-14 18:15] LABS: Prostate Specific Antigen 7.63 ng/mL (0.10-4.00)
== END ==
PROVIDERS: Family Provider Internal Medicine; PCP Nurse Practitioner Family; Referring Provider Physician Assistant Medical; Visit Provider Physician Assistant Medical
DX: R97.20 Elevated prostate specific antigen [PSA] (principal)
CPT/HCPCS: 36415; 84153

== ENCOUNTER 2021-08-24 15:15 | Outpatient (RCR) | payer OTHER, MEDICAID, SELFPAY ==
--- NOTE | 2021-07-14 18:26 | PT.OIE ---
Current Diagnoses Low back pain (07/14/21) Difficulty in walking, not elsewhere classified (07/14/21) Abnormal posture (07/14/21) Weakness (07/14/21) Past Medical History (Last Reviewed 12/27/20 @ 15:54 by Esteban Nathan DO) Atrial fibrillation Atrial fibrillation status post cardioversion History of alcohol abuse History of inguinal hernia repair History of tobacco use History of tonsillectomy Hypertension Mitral valve regurgitation Tricuspid valve regurgitation Past Surgical History (Last Reviewed 12/14/20 @ 19:27 by Estuardo Walton DO) History of inguinal hernia repair History of tonsillectomy Visit Care Team Role Provider Type Giovanni Vincent MD Attending Provider Physician Primary Care Provider Referring Provider Specialty: [facility] Address: [facility] [place] [place], [facility] Email: [email or web address] Physical Therapy Initial Evaluation PT-OP-A Visit Information Start: 07/14/21 07:29 Freq: Status: Active Protocol: Document 07/14/21 13:01 [facility] (Rec: 07/14/21 13:48 [facility] [id number]) Out-Patient Physical Therapy Visit Information Visit Information Visit Type Initial Evaluation Visit Start Time 13:03 Visit Stop Time 13:45 Total Visit Minutes 42 Visit Number 1 Number of WINERY CELLAR HAND Visits 0 PT-OP-B Current Condition Start: 07/14/21 07:29 Freq: Status: Active Protocol: Document 07/14/21 13:01 [facility] (Rec: 07/14/21 13:48 [facility] [id number]) Current Condition History of Current Condition Onset Date Spring 2020 Current Complaints LBP History of Current Condition Pt reports LBP that started earlier this year and really strated becoming pronounced through the spring and summer. Unsure of onset. He does not have a lot of change in activity with change to spring but does do yard work and work on house some. Pt denies history of LBP. No surgeries. He does have Afib and had an ablation. Changing positions increses pain like getting up from sititng in a chair especially low chair like sofa or off toilet is very painful . If does it slowly and carefully with arms then he can manage it. Pt is primary CG for . His had brain surgeries and has had deterioration and has a lack of iniative function. He does shopping, makes meals and does cleaning. She is ambulatory. Needs help with getting in and out of tub but does other ADLs on her own. Pt has not been wearing socks d/t pain when putting them on. Picking things up on the floor when sitting can set it off. Pt reports B feet have hammer toes that have been acting up this year. 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 Pt reports toes have started giving him pain this year. His back hurts so he cannot reach his feet to trim them. He saw a nurse at [facility] that clipped toenails and said they weren't ingrown but toes may be a problem w/walking. Pt reprots he feels like chaffing between toes and more swelling. HE got bigger shoes to avoid toe compression. Prior Treatments and Tests none Treatment Goals Patient/Caregiver Goals Be able to heavy construction around yard (build heavy front fence/wall- lots of post hole digging and concrete work), know what problem is and understand more about condition, feel like he can do home and car care activities. Be able to bend over, be able to tie shoes & put on socks PT-OP-C Subjective Start: 07/14/21 07:29 Freq: Status: Active Protocol: Document 07/14/21 13:01 [facility] (Rec: 07/14/21 13:48 [facility] [id number]) Patient Questionnaires Oswestry Low Back Index Oswestry Score 13/50 OP-PT Pain Assessment Location LBP Pain Location Details L side lumbar and into sacral region Intensity 10 Scale Used Numeric (0 - 10) Description- Other like sticking a knife in the back Frequency Intermittent Pain Duration about 1 hour Pain Aggravating Factors Changing Position,Walking, Bending Other Pain Aggravating Factors sit>stand, when having an attack-everything hurts, put on socks, sweeping Pain Alleviating Factors Sitting Other Pain Alleviating Factors lidocane patch, lay down (any way PT-OP-D Balance Start: 07/14/21 07:29 Freq: Status: Active Protocol: Document 07/14/21 13:01 [facility] (Rec: 07/14/21 13:48 [facility] [id number]) Balance Tests Single Limb Standing Single Limb- Right >30 sec w/ R hip shear & occ UE moving Single Limb- Left 9 sec w/ L hip shear and more UE movement PT-OP-F Manual Assessment Start: 07/14/21 07:29 Freq: Status: Active Protocol: Document 07/14/21 13:01 [facility] (Rec: 07/14/21 13:48 [facility] [id number]) Manual Assessments Soft Tissue Assessment Soft Tissue Mobility Assessment tight QL & ES L Joint Mobility Assessment Joint Mobility Assessment L iliac crest higher, L PSIS more post, equal greater trochanters PT-OP-G Mobility & Gait Start: 07/14/21 07:29 Freq: Status: Active Protocol: Document 07/14/21 13:01 [facility] (Rec: 07/14/21 13:48 [facility] [id number]) OP Mobility Evaluation Transfers Sit to Stand heavy arm use and very slow OP Gait Assessment Comments Gait Comments primarily leg walker, no pelvis motion. PT-OP-J Posture/Palpation/Skin Start: 07/14/21 07:29 Freq: Status: Active Protocol: Document 07/14/21 13:01 [facility] (Rec: 07/14/21 13:48 [facility] [id number]) Posture Evaluation Denisa Postural Classification System Denisa Postural Classifications Posterior/Anterior Lumbar Protective Mechanism Left AP 0 Lumbar Protective Mechanism Right AP 0 Lumbar Protective Mechanism Left PA 0 Lumbar Protective Mechanism Right PA 0 Comments Posture Comments pelvis sheared L & R SB, shifts weight into R foot PT-OP-K Range of Motion Start: 07/14/21 07:29 Freq: Status: Active Protocol: Document 07/14/21 13:01 [facility] (Rec: 07/14/21 13:48 [facility] [id number]) Lumbar Spine Range of Motion Lumbar Spine Active Degrees Flexion 39 Extension 31 Lateral Flexion Left 27 Lateral Flexion Right 13 ROM Limitations Pain Comments no movment w/lat shear w/sharp pain around L SI PT-OP-L Special Tests Start: 07/14/21 07:29 Freq: Status: Active Protocol: Document 07/14/21 13:01 [facility] (Rec: 07/14/21 13:48 [facility] [id number]) Special Tests Lumbar Spine Special Tests Slump Test Results positive PT-OP-M Strength Start: 07/14/21 07:29 Freq: Status: Active Protocol: Document 07/14/21 13:01 [facility] (Rec: 07/14/21 13:48 [facility] [id number]) Hip Strength Hip Manual Muscle Testing Right Flexion (L2) 3 Fair External Rotation 4 Good Internal Rotation 4- Good- Comments pain w/ IR in L spine Left Flexion (L2) 3+ Fair+ External Rotation 4- Good- Internal Rotation 4 Good Comments pain to get laying down so did not test abd & ext Knee Strength Knee Manual Muscle Testing Right Flexion (S2) 4+ Good+ Extension (L3) 4 Good Left Flexion (S2) 4+ Good+ Extension (L3) 4 Good Ankle/Foot Strength Ankle and Foot Manual Muscle Testing Right Dorsiflexion (L4) 5 Normal Left Dorsiflexion (L4) 5 Normal PT-OP-T Assessment and Plan Start: 07/14/21 07:29 Freq: Status: Active Protocol: Document 07/14/21 13:01 [facility] (Rec: 07/14/21 13:48 [facility] [id number]) Physical Therapy Assessment Rehab Potential Rehabilitation Potential Good Evaluation Complexity Number of Personal Factors/Comorbidities 1-2 Number of Body Systems Impaired 4 or More Clinical Presentation at Evaluation Evolving Impairments Impairments Activity Tolerance,Balance, Functional Activities, Functional Mobility,Gait,Pain, Posture,ROM,Soft Tissue Mobility,Strength,Transfers Goals NIURKA Optical Sales Associate Goal (LTG) Pt will improve NIURKA score to no greater than 3/50 to show improved functional ability. LTG Duration 09/14/21 mobility Short Term Goal (STG) Pt will be able to do sit<> stand without inc pain STG Duration 08/18/21 Long-Term Goal (LTG) Pt will be able to walk as long as he'd like without inc pain LTG Duration 09/13/21 activities Short Term Goal (STG) Pt will be able to have enough ROM required to bend over and put on socks and tie shoes without inc pain STG Duration 08/13/21 Long-Term Goal (LTG) pt will have good lifitng mechanics so he is able to do heavier activities around the house without inc pain. LTG Duration strength Short Term Goal (STG) pt will be indep w/HEP STG Duration 08/13/21 Optical Sales Associate Goal (LTG) Pt will score at least 5/5 BLE strength testing in all planes and 3/5 LPM to show improved stability to inc ability to do typical activities LTG Duration 09/13/21 Assessment Summary Assessment pt presents w/gradual worsening LBP that has been going on since this spring w/ no particular reason for onset . He does okay most of the time, but when the pain starts , he reports severe pain especially with transitions between postions whcih was witnessed today after shear and SB testing. Pt is very limited w/pelvic shear B by pain and hard end feel and has overall signfiicantly limited ROM. He is not able to do all of his typical activities d/t this pain especailly not jobs around the house along w/ pain w/ADLs like donning shoes and socks. Pt would beneift from skilled PT to work on ROM & strength in order to improve ability to do ADLs and typical functional home activities and movement transitions. Physical Therapy Plan Frequency and Duration Frequency of Treatment 1-2x/week Duration of Treatment 2 months Plan of Care Start Date 07/14/21 Plan of Care End Date 09/13/21 Therapeutic Interventions Therapeutic Interventions Aquatic Therapy,Balance Training,Gait Training,Home Exercise Program,Joint Mobilizations,Manual Therapy, Neuromuscular Re-education, Patient/Caregiver Education, Self-Care/Home Management,Soft Tissue Mobilization,Taping, Therapeutic Activities, Therapeutic Exercises Modalities Cold Pack/Ice Massage,Electric Stimulation,Hot Packs, Traction- Mechanical, Ultrasound Next Visit Focus/Plan Next Note Type Treatment Note Next Visit Plan supine core progression( pelvic tilt, bridge, december), clamshells, pelvis and hip mobs for ROM and pain dec
--- NOTE | 2021-07-15 18:27 | PT.OPPOC ---
Physical, Occupational & Speech Therapy At [facility] Current Diagnoses Low back pain (07/14/21) Difficulty in walking, not elsewhere classified (07/14/21) Abnormal posture (07/14/21) Weakness (07/14/21) Visit Care Team Role Provider Type Giovanni Vincent MD Attending Provider Physician Primary Care Provider Referring Provider Specialty: [facility] Address: [facility] [place], [facility] Email: [email or web address] Plan Of Care PT-OP-T Assessment and Plan Start: 07/14/21 07:29 Freq: Status: Active Protocol: Document 07/14/21 13:01 [facility] (Rec: 07/14/21 13:48 [facility] [id number]) Physical Therapy Assessment Rehab Potential Rehabilitation Potential Good Evaluation Complexity Number of Personal Factors/Comorbidities 1-2 Number of Body Systems Impaired 4 or More Clinical Presentation at Evaluation Evolving Impairments Impairments Activity Tolerance,Balance, Functional Activities, Functional Mobility,Gait,Pain, Posture,ROM,Soft Tissue Mobility,Strength,Transfers Goals NIURKA Career Services Director Goal (LTG) Pt will improve NIURKA score to no greater than 3/50 to show improved functional ability. LTG Duration 09/14/21 mobility Short Term Goal (STG) Pt will be able to do sit<> stand without inc pain STG Duration 08/18/21 Prison Goal (LTG) Pt will be able to walk as long as he'd like without inc pain LTG Duration 09/13/21 activities Short Term Goal (STG) Pt will be able to have enough ROM required to bend over and put on socks and tie shoes without inc pain STG Duration 08/13/21 Prison Goal (LTG) pt will have good lifitng mechanics so he is able to do heavier activities around the house without inc pain. LTG Duration strength Short Term Goal (STG) pt will be indep w/HEP STG Duration 08/13/21 Career Services Director Goal (LTG) Pt will score at least 5/5 BLE strength testing in all planes and 3/5 LPM to show improved stability to inc ability to do typical activities LTG Duration 09/13/21 Assessment Summary Assessment pt presents w/gradual worsening LBP that has been going on since this spring w/ no particular reason for onset . He does okay most of the time, but when the pain starts , he reports severe pain especially with transitions between postions whcih was witnessed today after shear and SB testing. Pt is very limited w/pelvic shear B by pain and hard end feel and has overall signfiicantly limited ROM. He is not able to do all of his typical activities d/t this pain especailly not jobs around the house along w/ pain w/ADLs like donning shoes and socks. Pt would beneift from skilled PT to work on ROM & strength in order to improve ability to do ADLs and typical functional home activities and movement transitions. Physical Therapy Plan Frequency and Duration Frequency of Treatment 1-2x/week Duration of Treatment 2 months Plan of Care Start Date 07/14/21 Plan of Care End Date 09/13/21 Therapeutic Interventions Therapeutic Interventions Aquatic Therapy,Balance Training,Gait Training,Home Exercise Program,Joint Mobilizations,Manual Therapy, Neuromuscular Re-education, Patient/Caregiver Education, Self-Care/Home Management,Soft Tissue Mobilization,Taping, Therapeutic Activities, Therapeutic Exercises Modalities Cold Pack/Ice Massage,Electric Stimulation,Hot Packs, Traction- Mechanical, Ultrasound Next Visit Focus/Plan Next Note Type Treatment Note Next Visit Plan supine core progression( pelvic tilt, , december), clamshells, pelvis and hip mobs for ROM and pain dec Plan of Care Dates Plan of Care Start Date 07/14/21 Plan of Care End Date 09/13/21 Electronically Signed by: Jennifer Owen, PT 07/15/21 [id number] Please Sign and Return: I have reviewed this Plan of Care and certify that the skilled therapy services above are required to meet the patient?s needs. Physician Signature Date Printed Name and Credentials Clinical Instructor Signature Printed Name and Credentials
--- NOTE | 2021-07-30 15:12 | PT.OTN ---
Current Diagnoses Low back pain (07/30/21) Difficulty in walking, not elsewhere classified (07/30/21) Abnormal posture (07/30/21) Weakness (07/30/21) Physical Therapy Treatment Note PT-OP-A Visit Information Start: 07/14/21 07:29 Freq: Status: Active Protocol: Document 07/30/21 14:34 [facility] (Rec: 07/30/21 15:12 [facility] [id number]) Out-Patient Physical Therapy Visit Information Visit Information Visit Type Treatment Note Visit Start Time 14:34 Visit Stop Time 15:15 Total Visit Minutes 41 Visit Number 2 Number of SCROLL SHEAR OPERATOR Visits 0 PT-OP-B Current Condition Start: 07/14/21 07:29 Freq: Status: Active Protocol: Document 07/14/21 13:01 [facility] (Rec: 07/14/21 13:48 [facility] [id number]) Current Condition History of Current Condition Onset Date Spring 2020 Current Complaints LBP History of Current Condition Pt reports LBP that started earlier this year and really strated becoming pronounced through the spring and summer. Unsure of onset. He does not have a lot of change in activity with change to spring but does do yard work and work on house some. Pt denies history of LBP. No surgeries. He does have Afib and had an ablation. Changing positions increses pain like getting up from sititng in a chair especially low chair like sofa or off toilet is very painful . If does it slowly and carefully with arms then he can manage it. Pt is primary CG for . His had brain surgeries and has had deterioration and has a lack of iniative function. He does shopping, makes meals and does cleaning. She is ambulatory. Needs help with getting in and out of tub but does other ADLs on her own. Pt has not been wearing socks d/t pain when putting them on. Picking things up on the floor when sitting can set it off. Pt reports B feet have hammer toes that have been acting up this year. 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 Pt reports toes have started giving him pain this year. His back hurts so he cannot reach his feet to trim them. He saw a nurse at [facility] that clipped toenails and said they weren't ingrown but toes may be a problem w/walking. Pt reprots he feels like chaffing between toes and more swelling. HE got bigger shoes to avoid toe compression. Prior Treatments and Tests none Treatment Goals Patient/Caregiver Goals Be able to heavy construction around yard (build heavy front fence/wall- lots of post hole digging and concrete work), know what problem is and understand more about condition, feel like he can do home and car care activities. Be able to bend over, be able to tie shoes & put on socks PT-OP-C Subjective Start: 07/14/21 07:29 Freq: Status: Active Protocol: Document 07/30/21 14:34 [facility] (Rec: 07/30/21 15:12 [facility] [id number]) OP-PT Subjective Patient Comments Patient Comments You know, whenever you go to the doctor, your pain stops. It's amazing. Today is the first time I've felt good in weeks. PT-OP-D Balance Start: 07/14/21 07:29 Freq: Status: Active Protocol: Document 07/14/21 13:01 [facility] (Rec: 07/14/21 13:48 [facility] [id number]) Balance Tests Single Limb Standing Single Limb- Right >30 sec w/ R hip shear & occ UE moving Single Limb- Left 9 sec w/ L hip shear and more UE movement PT-OP-F Manual Assessment Start: 07/14/21 07:29 Freq: Status: Active Protocol: Document 07/14/21 13:01 [facility] (Rec: 07/14/21 13:48 [facility] [id number]) Manual Assessments Soft Tissue Assessment Soft Tissue Mobility Assessment tight QL & ES L Joint Mobility Assessment Joint Mobility Assessment L iliac crest higher, L PSIS more post, equal greater trochanters PT-OP-G Mobility & Gait Start: 07/14/21 07:29 Freq: Status: Active Protocol: Document 07/14/21 13:01 [facility] (Rec: 07/14/21 13:48 [facility] [id number]) OP Mobility Evaluation Transfers Sit to Stand heavy arm use and very slow OP Gait Assessment Comments Gait Comments primarily leg walker, no pelvis motion. PT-OP-J Posture/Palpation/Skin Start: 07/14/21 07:29 Freq: Status: Active Protocol: Document 07/14/21 13:01 [facility] (Rec: 07/14/21 13:48 [facility] [id number]) Posture Evaluation [facility] Postural Classification System Denisa Postural Classifications Posterior/Anterior Lumbar Protective Mechanism Left AP 0 Lumbar Protective Mechanism Right AP 0 Lumbar Protective Mechanism Left PA 0 Lumbar Protective Mechanism Right PA 0 Comments Posture Comments pelvis sheared L & R SB, shifts weight into R foot PT-OP-K Range of Motion Start: 07/14/21 07:29 Freq: Status: Active Protocol: Document 07/14/21 13:01 [facility] (Rec: 07/14/21 13:48 [facility] [id number]) Lumbar Spine Range of Motion Lumbar Spine Active Degrees Flexion 39 Extension 31 Lateral Flexion Left 27 Lateral Flexion Right 13 ROM Limitations Pain Comments no movment w/lat shear w/sharp pain around L SI PT-OP-L Special Tests Start: 07/14/21 07:29 Freq: Status: Active Protocol: Document 07/14/21 13:01 [facility] (Rec: 07/14/21 13:48 [facility] [id number]) Special Tests Lumbar Spine Special Tests Slump Test Results positive PT-OP-M Strength Start: 07/14/21 07:29 Freq: Status: Active Protocol: Document 07/14/21 13:01 [facility] (Rec: 07/14/21 13:48 [facility] [id number]) Hip Strength Hip Manual Muscle Testing Right Flexion (L2) 3 Fair External Rotation 4 Good Internal Rotation 4- Good- Comments pain w/ IR in L spine Left Flexion (L2) 3+ Fair+ External Rotation 4- Good- Internal Rotation 4 Good Comments pain to get laying down so did not test abd & ext Knee Strength Knee Manual Muscle Testing Right Flexion (S2) 4+ Good+ Extension (L3) 4 Good Left Flexion (S2) 4+ Good+ Extension (L3) 4 Good Ankle/Foot Strength Ankle and Foot Manual Muscle Testing Right Dorsiflexion (L4) 5 Normal Left Dorsiflexion (L4) 5 Normal PT-OP-Q Treatments Start: 07/14/21 07:29 Freq: Status: Active Protocol: Document 07/30/21 14:34 [facility] (Rec: 07/30/21 15:12 [facility] [id number]) Cardio Equipment Recumbent Stepper (Sci-Fit) Duration (Minutes) 5 Resistance 4 Seat Position 12 Therapeutic Exercises Supine Exercises 2 Supine Exercise Name PPT /c Marching 1 Supine Exercise Name PPT /c TrA contraction Sidelying Exercises 2 Sidelying Exercise Name Reverse Clam Shells Side bilateral 1 Sidelying Exercise Name Clamshells Side bilateral Therapeutic Activity Therapeutic Activity 1 Name Log roll training PT-OP-R Modalities Start: 07/14/21 07:29 Freq: Status: Active Protocol: Document 07/30/21 14:34 [facility] (Rec: 07/30/21 15:12 [facility] [id number]) Electric Stimulation Electric Stimulation Interferential Current (IFC) Body Location L Lower Quadrant Duration (Minutes) 15 Intensity 17 Patient Position Sidelying PT-OP-T Assessment and Plan Start: 07/14/21 07:29 Freq: Status: Active Protocol: Document 07/30/21 14:34 [facility] (Rec: 07/30/21 15:12 [facility] [id number]) Physical Therapy Assessment Impairments Impairments Activity Tolerance,Balance, Functional Activities, Functional Mobility,Gait,Pain, Posture,ROM,Soft Tissue Mobility,Strength,Transfers Goals NIURKA Timber Cruiser Goal (LTG) Pt will improve NIURKA score to no greater than 3/50 to show improved functional ability. LTG Duration 09/14/21 mobility Short Term Goal (STG) Pt will be able to do sit<> stand without inc pain STG Duration 08/18/21 Timber Cruiser Goal (LTG) Pt will be able to walk as long as he'd like without inc pain LTG Duration 09/13/21 activities Short Term Goal (STG) Pt will be able to have enough ROM required to bend over and put on socks and tie shoes without inc pain STG Duration 08/13/21 Intermediate Goal (LTG) pt will have good lifitng mechanics so he is able to do heavier activities around the house without inc pain. LTG Duration strength Short Term Goal (STG) pt will be indep w/HEP STG Duration 08/13/21 Timber Cruiser Goal (LTG) Pt will score at least 5/5 BLE strength testing in all planes and 3/5 LPM to show improved stability to inc ability to do typical activities LTG Duration 09/13/21 Assessment Summary Assessment Mainly worked today on concept of bracing/core contraction during movement, pt was able to perform good quality TrA contraction, and demonstrated log rolling and sit<->supine without pain. Trial of e-stim to limit post-rehab low back pain. Physical Therapy Plan Frequency and Duration Frequency of Treatment 1-2x/week Duration of Treatment 2 months Plan of Care Start Date 07/14/21 Plan of Care End Date 09/13/21 Therapeutic Interventions Therapeutic Interventions Aquatic Therapy,Balance Training,Gait Training,Home Exercise Program,Joint Mobilizations,Manual Therapy, Neuromuscular Re-education, Patient/Caregiver Education, Self-Care/Home Management,Soft Tissue Mobilization,Taping, Therapeutic Activities, Therapeutic Exercises Modalities Cold Pack/Ice Massage,Electric Stimulation,Hot Packs, Traction- Mechanical, Ultrasound Next Visit Focus/Plan Next Note Type Treatment Note Next Visit Plan supine core progression( pelvic tilt, bridge, december), clamshells, pelvis and hip mobs for ROM and pain dec
--- NOTE | 2021-08-03 15:09 | PT.OTN ---
Current Diagnoses Low back pain (08/03/21) Difficulty in walking, not elsewhere classified (08/03/21) Abnormal posture (08/03/21) Weakness (08/03/21) Physical Therapy Treatment Note PT-OP-A Visit Information Start: 07/14/21 07:29 Freq: Status: Active Protocol: Document 08/03/21 14:37 DCW (Rec: 08/03/21 15:09 DCW [id number]) Out-Patient Physical Therapy Visit Information Visit Information Visit Type Treatment Note Visit Start Time 14:37 Visit Stop Time 15:20 Total Visit Minutes 43 Visit Number 3 Number of INDUSTRIAL RENDERER Visits 0 PT-OP-B Current Condition Start: 07/14/21 07:29 Freq: Status: Active Protocol: Document 07/14/21 13:01 [facility] (Rec: 07/14/21 13:48 [facility] [id number]) Current Condition History of Current Condition Onset Date Spring 2020 Current Complaints LBP History of Current Condition Pt reports LBP that started earlier this year and really strated becoming pronounced through the spring and summer. Unsure of onset. He does not have a lot of change in activity with change to spring but does do yard work and work on house some. Pt denies history of LBP. No surgeries. He does have Afib and had an ablation. Changing positions increses pain like getting up from sititng in a chair especially low chair like sofa or off toilet is very painful . If does it slowly and carefully with arms then he can manage it. Pt is primary CG for . His had brain surgeries and has had deterioration and has a lack of iniative function. He does shopping, makes meals and does cleaning. She is ambulatory. Needs help with getting in and out of tub but does other ADLs on her own. Pt has not been wearing socks d/t pain when putting them on. Picking things up on the floor when sitting can set it off. Pt reports B feet have hammer toes that have been acting up this year. 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 Pt reports toes have started giving him pain this year. His back hurts so he cannot reach his feet to trim them. He saw a nurse at [facility] that clipped toenails and said they weren't ingrown but toes may be a problem w/walking. Pt reprots he feels like chaffing between toes and more swelling. HE got bigger shoes to avoid toe compression. Prior Treatments and Tests none Treatment Goals Patient/Caregiver Goals Be able to heavy construction around yard (build heavy front fence/wall- lots of post hole digging and concrete work), know what problem is and understand more about condition, feel like he can do home and car care activities. Be able to bend over, be able to tie shoes & put on socks PT-OP-C Subjective Start: 07/14/21 07:29 Freq: Status: Active Protocol: Document 08/03/21 14:37 DCW (Rec: 08/03/21 15:09 DCW [id number]) OP-PT Subjective Patient Comments Patient Comments Today is really the first time since my last visit I've been having any pain. Notes he has been very compliant with log rolling getting into/ out of bed, and it has been very helpful. PT-OP-D Balance Start: 07/14/21 07:29 Freq: Status: Active Protocol: Document 07/14/21 13:01 [facility] (Rec: 07/14/21 13:48 [facility] [id number]) Balance Tests Single Limb Standing Single Limb- Right >30 sec w/ R hip shear & occ UE moving Single Limb- Left 9 sec w/ L hip shear and more UE movement PT-OP-F Manual Assessment Start: 07/14/21 07:29 Freq: Status: Active Protocol: Document 07/14/21 13:01 [facility] (Rec: 07/14/21 13:48 [facility] [id number]) Manual Assessments Soft Tissue Assessment Soft Tissue Mobility Assessment tight QL & ES L Joint Mobility Assessment Joint Mobility Assessment L iliac crest higher, L PSIS more post, equal greater trochanters PT-OP-G Mobility & Gait Start: 07/14/21 07:29 Freq: Status: Active Protocol: Document 07/14/21 13:01 [facility] (Rec: 07/14/21 13:48 [facility] [id number]) OP Mobility Evaluation Transfers Sit to Stand heavy arm use and very slow OP Gait Assessment Comments Gait Comments primarily leg walker, no pelvis motion. PT-OP-J Posture/Palpation/Skin Start: 07/14/21 07:29 Freq: Status: Active Protocol: Document 07/14/21 13:01 [facility] (Rec: 07/14/21 13:48 [facility] [id number]) Posture Evaluation Denisa Postural Classification System Denisa Postural Classifications Posterior/Anterior Lumbar Protective Mechanism Left AP 0 Lumbar Protective Mechanism Right AP 0 Lumbar Protective Mechanism Left PA 0 Lumbar Protective Mechanism Right PA 0 Comments Posture Comments pelvis sheared L & R SB, shifts weight into R foot PT-OP-K Range of Motion Start: 07/14/21 07:29 Freq: Status: Active Protocol: Document 07/14/21 13:01 [facility] (Rec: 07/14/21 13:48 [facility] [id number]) Lumbar Spine Range of Motion Lumbar Spine Active Degrees Flexion 39 Extension 31 Lateral Flexion Left 27 Lateral Flexion Right 13 ROM Limitations Pain Comments no movment w/lat shear w/sharp pain around L SI PT-OP-L Special Tests Start: 07/14/21 07:29 Freq: Status: Active Protocol: Document 07/14/21 13:01 [facility] (Rec: 07/14/21 13:48 [facility] [id number]) Special Tests Lumbar Spine Special Tests Slump Test Results positive PT-OP-M Strength Start: 07/14/21 07:29 Freq: Status: Active Protocol: Document 07/14/21 13:01 [facility] (Rec: 07/14/21 13:48 [facility] [id number]) Hip Strength Hip Manual Muscle Testing Right Flexion (L2) 3 Fair External Rotation 4 Good Internal Rotation 4- Good- Comments pain w/ IR in L spine Left Flexion (L2) 3+ Fair+ External Rotation 4- Good- Internal Rotation 4 Good Comments pain to get laying down so did not test abd & ext Knee Strength Knee Manual Muscle Testing Right Flexion (S2) 4+ Good+ Extension (L3) 4 Good Left Flexion (S2) 4+ Good+ Extension (L3) 4 Good Ankle/Foot Strength Ankle and Foot Manual Muscle Testing Right Dorsiflexion (L4) 5 Normal Left Dorsiflexion (L4) 5 Normal PT-OP-Q Treatments Start: 07/14/21 07:29 Freq: Status: Active Protocol: Document 08/03/21 14:37 DCW (Rec: 08/03/21 15:09 DCW [id number]) Gym Equipment Therapeutic Ball 1 Exercise Details Low Trunk Rotations Ball Size/Color Red - 55 cm Body Position Supine Therapeutic Exercises Supine Exercises 3 Supine Exercise Name Bridging Reps/Minutes 2x5 Sidelying Exercises 3 Sidelying Exercise Name Open Book Side bilateral 2 Sidelying Exercise Name Reverse Clam Shells Side bilateral 1 Sidelying Exercise Name Clamshells Side bilateral PT-OP-R Modalities Start: 07/14/21 07:29 Freq: Status: Active Protocol: Document 08/03/21 14:37 DCW (Rec: 08/03/21 15:09 DCW [id number]) Electric Stimulation Electric Stimulation Interferential Current (IFC) Body Location L Lower Quadrant Duration (Minutes) 15 Intensity 20 Patient Position Sidelying PT-OP-T Assessment and Plan Start: 07/14/21 07:29 Freq: Status: Active Protocol: Document 08/03/21 14:37 DCW (Rec: 08/03/21 15:09 DCW [id number]) Physical Therapy Assessment Impairments Impairments Activity Tolerance,Balance, Functional Activities, Functional Mobility,Gait,Pain, Posture,ROM,Soft Tissue Mobility,Strength,Transfers Goals NIURKA Esthetician/Owner Goal (LTG) Pt will improve NIURKA score to no greater than 3/50 to show improved functional ability. LTG Duration 09/14/21 mobility Short Term Goal (STG) Pt will be able to do sit<> stand without inc pain STG Duration 08/18/21 Esthetician/Owner Goal (LTG) Pt will be able to walk as long as he'd like without inc pain LTG Duration 09/13/21 activities Short Term Goal (STG) Pt will be able to have enough ROM required to bend over and put on socks and tie shoes without inc pain STG Duration 08/13/21 Usp Goal (LTG) pt will have good lifitng mechanics so he is able to do heavier activities around the house without inc pain. LTG Duration strength Short Term Goal (STG) pt will be indep w/HEP STG Duration 08/13/21 Usp Goal (LTG) Pt will score at least 5/5 BLE strength testing in all planes and 3/5 LPM to show improved stability to inc ability to do typical activities LTG Duration 09/13/21 Assessment Summary Assessment Pt doing substantially better with mobility and back pain following training to contract TrA. Pt feels the exercises may be doing something, but I think it's mainly the stim. Pt interested in getting a TENS unit at home. Physical Therapy Plan Frequency and Duration Frequency of Treatment 1-2x/week Duration of Treatment 2 months Plan of Care Start Date 07/14/21 Plan of Care End Date 09/13/21 Therapeutic Interventions Therapeutic Interventions Aquatic Therapy,Balance Training,Gait Training,Home Exercise Program,Joint Mobilizations,Manual Therapy, Neuromuscular Re-education, Patient/Caregiver Education, Self-Care/Home Management,Soft Tissue Mobilization,Taping, Therapeutic Activities, Therapeutic Exercises Modalities Cold Pack/Ice Massage,Electric Stimulation,Hot Packs, Traction- Mechanical, Ultrasound Next Visit Focus/Plan Next Note Type Treatment Note Next Visit Plan supine core progression( pelvic tilt, bridge, december), clamshells, pelvis and hip mobs for ROM and pain dec
--- NOTE | 2021-08-05 18:14 | PT.OTN ---
Current Diagnoses Low back pain (08/05/21) Difficulty in walking, not elsewhere classified (08/05/21) Abnormal posture (08/05/21) Weakness (08/05/21) Physical Therapy Treatment Note PT-OP-A Visit Information Start: 07/14/21 07:29 Freq: Status: Active Protocol: Document 08/05/21 16:55 [facility] (Rec: 08/05/21 18:14 [facility] [id number]) Out-Patient Physical Therapy Visit Information Visit Information Visit Type Treatment Note Visit Start Time 16:52 Visit Stop Time 17:47 Total Visit Minutes 55 Visit Number 4 Number of METAL MOLDER Visits 0 PT-OP-B Current Condition Start: 07/14/21 07:29 Freq: Status: Active Protocol: Document 07/14/21 13:01 [facility] (Rec: 07/14/21 13:48 [facility] [id number]) Current Condition History of Current Condition Onset Date Spring 2020 Current Complaints LBP History of Current Condition Pt reports LBP that started earlier this year and really strated becoming pronounced through the spring and summer. Unsure of onset. He does not have a lot of change in activity with change to spring but does do yard work and work on house some. Pt denies history of LBP. No surgeries. He does have Afib and had an ablation. Changing positions increses pain like getting up from sititng in a chair especially low chair like sofa or off toilet is very painful . If does it slowly and carefully with arms then he can manage it. Pt is primary CG for . His had brain surgeries and has had deterioration and has a lack of iniative function. He does shopping, makes meals and does cleaning. She is ambulatory. Needs help with getting in and out of tub but does other ADLs on her own. Pt has not been wearing socks d/t pain when putting them on. Picking things up on the floor when sitting can set it off. Pt reports B feet have hammer toes that have been acting up this year. 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 Pt reports toes have started giving him pain this year. His back hurts so he cannot reach his feet to trim them. He saw a nurse at [facility] that clipped toenails and said they weren't ingrown but toes may be a problem w/walking. Pt reprots he feels like chaffing between toes and more swelling. HE got bigger shoes to avoid toe compression. Prior Treatments and Tests none Treatment Goals Patient/Caregiver Goals Be able to heavy construction around yard (build heavy front fence/wall- lots of post hole digging and concrete work), know what problem is and understand more about condition, feel like he can do home and car care activities. Be able to bend over, be able to tie shoes & put on socks PT-OP-C Subjective Start: 07/14/21 07:29 Freq: Status: Active Protocol: Document 08/05/21 16:55 [facility] (Rec: 08/05/21 18:14 [facility] [id number]) OP-PT Subjective Patient Comments Patient Comments Pt reports he has not been doing exercises at home d/t him sleeping on couch and they don't work well with that. PT-OP-D Balance Start: 07/14/21 07:29 Freq: Status: Active Protocol: Document 07/14/21 13:01 [facility] (Rec: 07/14/21 13:48 [facility] [id number]) Balance Tests Single Limb Standing Single Limb- Right >30 sec w/ R hip shear & occ UE moving Single Limb- Left 9 sec w/ L hip shear and more UE movement PT-OP-F Manual Assessment Start: 07/14/21 07:29 Freq: Status: Active Protocol: Document 07/14/21 13:01 [facility] (Rec: 07/14/21 13:48 [facility] [id number]) Manual Assessments Soft Tissue Assessment Soft Tissue Mobility Assessment tight QL & ES L Joint Mobility Assessment Joint Mobility Assessment L iliac crest higher, L PSIS more post, equal greater trochanters PT-OP-G Mobility & Gait Start: 07/14/21 07:29 Freq: Status: Active Protocol: Document 07/14/21 13:01 [facility] (Rec: 07/14/21 13:48 [facility] [id number]) OP Mobility Evaluation Transfers Sit to Stand heavy arm use and very slow OP Gait Assessment Comments Gait Comments primarily leg walker, no pelvis motion. PT-OP-J Posture/Palpation/Skin Start: 07/14/21 07:29 Freq: Status: Active Protocol: Document 07/14/21 13:01 [facility] (Rec: 07/14/21 13:48 [facility] [id number]) Posture Evaluation [facility] Postural Classification System [facility] Postural Classifications Posterior/Anterior Lumbar Protective Mechanism Left AP 0 Lumbar Protective Mechanism Right AP 0 Lumbar Protective Mechanism Left PA 0 Lumbar Protective Mechanism Right PA 0 Comments Posture Comments pelvis sheared L & R SB, shifts weight into R foot PT-OP-K Range of Motion Start: 07/14/21 07:29 Freq: Status: Active Protocol: Document 07/14/21 13:01 [facility] (Rec: 07/14/21 13:48 [facility] [id number]) Lumbar Spine Range of Motion Lumbar Spine Active Degrees Flexion 39 Extension 31 Lateral Flexion Left 27 Lateral Flexion Right 13 ROM Limitations Pain Comments no movment w/lat shear w/sharp pain around L SI PT-OP-L Special Tests Start: 07/14/21 07:29 Freq: Status: Active Protocol: Document 07/14/21 13:01 [facility] (Rec: 07/14/21 13:48 [facility] [id number]) Special Tests Lumbar Spine Special Tests Slump Test Results positive PT-OP-M Strength Start: 07/14/21 07:29 Freq: Status: Active Protocol: Document 07/14/21 13:01 [facility] (Rec: 07/14/21 13:48 [facility] [id number]) Hip Strength Hip Manual Muscle Testing Right Flexion (L2) 3 Fair External Rotation 4 Good Internal Rotation 4- Good- Comments pain w/ IR in L spine Left Flexion (L2) 3+ Fair+ External Rotation 4- Good- Internal Rotation 4 Good Comments pain to get laying down so did not test abd & ext Knee Strength Knee Manual Muscle Testing Right Flexion (S2) 4+ Good+ Extension (L3) 4 Good Left Flexion (S2) 4+ Good+ Extension (L3) 4 Good Ankle/Foot Strength Ankle and Foot Manual Muscle Testing Right Dorsiflexion (L4) 5 Normal Left Dorsiflexion (L4) 5 Normal PT-OP-Q Treatments Start: 07/14/21 07:29 Freq: Status: Active Protocol: Document 08/05/21 16:55 [facility] (Rec: 08/05/21 18:14 [facility] [id number]) Therapeutic Exercises Supine Exercises 3 Supine Exercise Name Bridging Side bilateral Reps/Minutes 1x3 Comments felt in LB, added distal ant thigh distraction for cueing still felt LB 2 Supine Exercise Name PPT /c Marching Side bilateral Reps/Minutes 1x16 Comments did well with self-palp of lat LB while marching but 1 Supine Exercise Name PPT Side bilateral Reps/Minutes 1x20 Comments Hooklying, attempted to bridge in order to PPT, did well after visual cue Sidelying Exercises 2 Sidelying Exercise Name Reverse Clam Shells Side bilateral Reps/Minutes 15 1 Sidelying Exercise Name Clamshells Side bilateral Reps/Minutes 15 Standing Exercises squat Standing Exercise Name mini Side bilateral Reps/Minutes 2x10 Comments cues for hips back and foot and knee position hip ext Side bilateral Reps/Minutes 2x10 hip abd Side bilateral Reps/Minutes 2x10 Manual Therapy Treatment Soft Tissue Mobilization lumbar spine Mobilization Type Myofascial Release,Rolling Body Position Sidelying PT-OP-R Modalities Start: 07/14/21 07:29 Freq: Status: Active Protocol: Document 08/05/21 16:55 [facility] (Rec: 08/05/21 18:14 [facility] [id number]) Electric Stimulation Electric Stimulation Interferential Current (IFC) Body Location L LB Duration (Minutes) 15 Intensity 20 Patient Position Sidelying Combined With Heat/Cold Hot Pack PT-OP-T Assessment and Plan Start: 07/14/21 07:29 Freq: Status: Active Protocol: Document 08/05/21 16:55 [facility] (Rec: 08/05/21 18:14 [facility] [id number]) Physical Therapy Assessment Goals NIURKA Correction Goal (LTG) Pt will improve NIURKA score to no greater than 3/50 to show improved functional ability. LTG Duration 09/14/21 mobility Short Term Goal (STG) Pt will be able to do sit<> stand without inc pain STG Duration 08/18/21 Correction Goal (LTG) Pt will be able to walk as long as he'd like without inc pain LTG Duration 09/13/21 activities Short Term Goal (STG) Pt will be able to have enough ROM required to bend over and put on socks and tie shoes without inc pain STG Duration 08/13/21 Biostatistics Teacher Goal (LTG) pt will have good lifitng mechanics so he is able to do heavier activities around the house without inc pain. LTG Duration strength Short Term Goal (STG) pt will be indep w/HEP STG Duration 08/13/21 Biostatistics Teacher Goal (LTG) Pt will score at least 5/5 BLE strength testing in all planes and 3/5 LPM to show improved stability to inc ability to do typical activities LTG Duration 09/13/21 Assessment Summary Assessment Pt reports feeling taller after session and feeling really good. He required max cueing with all exercise for execution of proper form Physical Therapy Plan Frequency and Duration Frequency of Treatment 1-2x/week Duration of Treatment 2 months Plan of Care Start Date 07/14/21 Plan of Care End Date 09/13/21 Next Visit Focus/Plan Next Note Type Treatment Note Next Visit Plan cont to work on core activation & hip stability & transitional movements to dec pain
--- NOTE | 2021-08-10 16:05 | PT.OTN ---
Current Diagnoses Low back pain (08/10/21) Difficulty in walking, not elsewhere classified (08/10/21) Abnormal posture (08/10/21) Weakness (08/10/21) Physical Therapy Treatment Note PT-OP-A Visit Information Start: 07/14/21 07:29 Freq: Status: Active Protocol: Document 08/10/21 15:18 [facility] (Rec: 08/10/21 16:05 [facility] [id number]) Out-Patient Physical Therapy Visit Information Visit Information Visit Type Treatment Note Visit Start Time 15:18 Visit Stop Time 16:02 Total Visit Minutes 54 Visit Number 5 Number of DISCOVERY GUIDE Visits 0 PT-OP-B Current Condition Start: 07/14/21 07:29 Freq: Status: Active Protocol: Document 07/14/21 13:01 [facility] (Rec: 07/14/21 13:48 [facility] [id number]) Current Condition History of Current Condition Onset Date Spring 2020 Current Complaints LBP History of Current Condition Pt reports LBP that started earlier this year and really strated becoming pronounced through the spring and summer. Unsure of onset. He does not have a lot of change in activity with change to spring but does do yard work and work on house some. Pt denies history of LBP. No surgeries. He does have Afib and had an ablation. Changing positions increses pain like getting up from sititng in a chair especially low chair like sofa or off toilet is very painful . If does it slowly and carefully with arms then he can manage it. Pt is primary CG for . His had brain surgeries and has had deterioration and has a lack of iniative function. He does shopping, makes meals and does cleaning. She is ambulatory. Needs help with getting in and out of tub but does other ADLs on her own. Pt has not been wearing socks d/t pain when putting them on. Picking things up on the floor when sitting can set it off. Pt reports B feet have hammer toes that have been acting up this year. 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 Pt reports toes have started giving him pain this year. His back hurts so he cannot reach his feet to trim them. He saw a nurse at [facility] that clipped toenails and said they weren't ingrown but toes may be a problem w/walking. Pt reprots he feels like chaffing between toes and more swelling. HE got bigger shoes to avoid toe compression. Prior Treatments and Tests none Treatment Goals Patient/Caregiver Goals Be able to heavy construction around yard (build heavy front fence/wall- lots of post hole digging and concrete work), know what problem is and understand more about condition, feel like he can do home and car care activities. Be able to bend over, be able to tie shoes & put on socks PT-OP-C Subjective Start: 07/14/21 07:29 Freq: Status: Active Protocol: Document 08/10/21 15:18 [facility] (Rec: 08/10/21 16:05 [facility] [id number]) OP-PT Subjective Patient Comments Patient Comments Pt reports he did his exercises at home. He put a cushion on the ground and did the laying down exercises. notes was able to get up from the ground but some pain today so he put a lidocane patch on . PT-OP-D Balance Start: 07/14/21 07:29 Freq: Status: Active Protocol: Document 07/14/21 13:01 [facility] (Rec: 07/14/21 13:48 [facility] [id number]) Balance Tests Single Limb Standing Single Limb- Right >30 sec w/ R hip shear & occ UE moving Single Limb- Left 9 sec w/ L hip shear and more UE movement PT-OP-F Manual Assessment Start: 07/14/21 07:29 Freq: Status: Active Protocol: Document 07/14/21 13:01 [facility] (Rec: 07/14/21 13:48 [facility] [id number]) Manual Assessments Soft Tissue Assessment Soft Tissue Mobility Assessment tight QL & ES L Joint Mobility Assessment Joint Mobility Assessment L iliac crest higher, L PSIS more post, equal greater trochanters PT-OP-G Mobility & Gait Start: 07/14/21 07:29 Freq: Status: Active Protocol: Document 07/14/21 13:01 [facility] (Rec: 07/14/21 13:48 [facility] [id number]) OP Mobility Evaluation Transfers Sit to Stand heavy arm use and very slow OP Gait Assessment Comments Gait Comments primarily leg walker, no pelvis motion. PT-OP-J Posture/Palpation/Skin Start: 07/14/21 07:29 Freq: Status: Active Protocol: Document 07/14/21 13:01 [facility] (Rec: 07/14/21 13:48 [facility] [id number]) Posture Evaluation Denisa Postural Classification System Denisa Postural Classifications Posterior/Anterior Lumbar Protective Mechanism Left AP 0 Lumbar Protective Mechanism Right AP 0 Lumbar Protective Mechanism Left PA 0 Lumbar Protective Mechanism Right PA 0 Comments Posture Comments pelvis sheared L & R SB, shifts weight into R foot PT-OP-K Range of Motion Start: 07/14/21 07:29 Freq: Status: Active Protocol: Document 07/14/21 13:01 [facility] (Rec: 07/14/21 13:48 [facility] [id number]) Lumbar Spine Range of Motion Lumbar Spine Active Degrees Flexion 39 Extension 31 Lateral Flexion Left 27 Lateral Flexion Right 13 ROM Limitations Pain Comments no movment w/lat shear w/sharp pain around L SI PT-OP-L Special Tests Start: 07/14/21 07:29 Freq: Status: Active Protocol: Document 07/14/21 13:01 [facility] (Rec: 07/14/21 13:48 [facility] [id number]) Special Tests Lumbar Spine Special Tests Slump Test Results positive PT-OP-M Strength Start: 07/14/21 07:29 Freq: Status: Active Protocol: Document 07/14/21 13:01 [facility] (Rec: 07/14/21 13:48 [facility] [id number]) Hip Strength Hip Manual Muscle Testing Right Flexion (L2) 3 Fair External Rotation 4 Good Internal Rotation 4- Good- Comments pain w/ IR in L spine Left Flexion (L2) 3+ Fair+ External Rotation 4- Good- Internal Rotation 4 Good Comments pain to get laying down so did not test abd & ext Knee Strength Knee Manual Muscle Testing Right Flexion (S2) 4+ Good+ Extension (L3) 4 Good Left Flexion (S2) 4+ Good+ Extension (L3) 4 Good Ankle/Foot Strength Ankle and Foot Manual Muscle Testing Right Dorsiflexion (L4) 5 Normal Left Dorsiflexion (L4) 5 Normal PT-OP-Q Treatments Start: 07/14/21 07:29 Freq: Status: Active Protocol: Document 08/10/21 15:18 [facility] (Rec: 08/10/21 16:05 [facility] [id number]) Therapeutic Exercises Supine Exercises 1 Supine Exercise Name PPT Side bilateral Reps/Minutes 1x20 Comments Hooklying, attempted to bridge in order to PPT, still significant difficult Standing Exercises squat Standing Exercise Name mini Side bilateral Reps/Minutes 2x15 Comments cues for hips back and foot and knee position hip ext Side bilateral Reps/Minutes 2x10 hip abd Side bilateral Reps/Minutes 2x10 Other Exercises quadruped Other Exercise Name cat/camel Reps/Minutes 15 Comments cueing for lumbar flex-pt has sig lack of lumbar flex Manual Therapy Treatment Joint Mobilizations innominate Joint L cadual glide & ER FM sacrum Joint caudal & L UPA FM hip Joint ER hip on axis FM L PT-OP-R Modalities Start: 07/14/21 07:29 Freq: Status: Active Protocol: Document 08/10/21 15:18 [facility] (Rec: 08/10/21 16:05 [facility] [id number]) Electric Stimulation Electric Stimulation Interferential Current (IFC) Body Location L LB Duration (Minutes) 15 Intensity 20 Patient Position Sidelying Combined With Heat/Cold Hot Pack PT-OP-T Assessment and Plan Start: 07/14/21 07:29 Freq: Status: Active Protocol: Document 08/10/21 15:18 [facility] (Rec: 08/10/21 16:05 [facility] [id number]) Physical Therapy Assessment Goals NIURKA Bilingual Executive Assistant Goal (LTG) Pt will improve NIURKA score to no greater than 3/50 to show improved functional ability. LTG Duration 09/14/21 mobility Short Term Goal (STG) Pt will be able to do sit<> stand without inc pain STG Duration 08/18/21 Mcc Goal (LTG) Pt will be able to walk as long as he'd like without inc pain LTG Duration 09/13/21 activities Short Term Goal (STG) Pt will be able to have enough ROM required to bend over and put on socks and tie shoes without inc pain STG Duration 08/13/21 Mcc Goal (LTG) pt will have good lifitng mechanics so he is able to do heavier activities around the house without inc pain. LTG Duration strength Short Term Goal (STG) pt will be indep w/HEP STG Duration 08/13/21 Bilingual Executive Assistant Goal (LTG) Pt will score at least 5/5 BLE strength testing in all planes and 3/5 LPM to show improved stability to inc ability to do typical activities LTG Duration 09/13/21 Assessment Summary Assessment Pt required cues still w/ squatting especially for hips back and knees not past his toes. He requires cues w/hip abd and ext for upright position an dnot leaning. He still has significnat difficulty w/PPT so changed to cat camel which improved ability to get some pelvic tiliting. He had improved ER on L side and IR after manual treatment. Physical Therapy Plan Frequency and Duration Frequency of Treatment 1-2x/week Duration of Treatment 2 months Plan of Care Start Date 07/14/21 Plan of Care End Date 09/13/21 Next Visit Focus/Plan Next Note Type Treatment Note Next Visit Plan cont to work on core activation & hip stability & transitional movements to dec pain-keep working on squat form
--- NOTE | 2021-08-12 18:08 | PT.OTN ---
Current Diagnoses Low back pain (08/12/21) Difficulty in walking, not elsewhere classified (08/12/21) Abnormal posture (08/12/21) Weakness (08/12/21) Physical Therapy Treatment Note PT-OP-A Visit Information Start: 07/14/21 07:29 Freq: Status: Active Protocol: Document 08/12/21 16:14 JG (Rec: 08/12/21 16:46 [facility] [id number]) Out-Patient Physical Therapy Visit Information Visit Information Visit Type Treatment Note Visit Start Time 15:20 Visit Stop Time 16:25 Total Visit Minutes 55 Visit Number 6 Number of OUTSIDE PLANT CABLE ENGINEER Visits 0 PT-OP-B Current Condition Start: 07/14/21 07:29 Freq: Status: Active Protocol: Document 07/14/21 13:01 [facility] (Rec: 07/14/21 13:48 [facility] [id number]) Current Condition History of Current Condition Onset Date Spring 2020 Current Complaints LBP History of Current Condition Pt reports LBP that started earlier this year and really strated becoming pronounced through the spring and summer. Unsure of onset. He does not have a lot of change in activity with change to spring but does do yard work and work on house some. Pt denies history of LBP. No surgeries. He does have Afib and had an ablation. Changing positions increses pain like getting up from sititng in a chair especially low chair like sofa or off toilet is very painful . If does it slowly and carefully with arms then he can manage it. Pt is primary CG for . His had brain surgeries and has had deterioration and has a lack of iniative function. He does shopping, makes meals and does cleaning. She is ambulatory. Needs help with getting in and out of tub but does other ADLs on her own. Pt has not been wearing socks d/t pain when putting them on. Picking things up on the floor when sitting can set it off. Pt reports B feet have hammer toes that have been acting up this year. 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 Pt reports toes have started giving him pain this year. His back hurts so he cannot reach his feet to trim them. He saw a nurse at [facility] that clipped toenails and said they weren't ingrown but toes may be a problem w/walking. Pt reprots he feels like chaffing between toes and more swelling. HE got bigger shoes to avoid toe compression. Prior Treatments and Tests none Treatment Goals Patient/Caregiver Goals Be able to heavy construction around yard (build heavy front fence/wall- lots of post hole digging and concrete work), know what problem is and understand more about condition, feel like he can do home and car care activities. Be able to bend over, be able to tie shoes & put on socks PT-OP-C Subjective Start: 07/14/21 07:29 Freq: Status: Active Protocol: Document 08/12/21 16:14 JG (Rec: 08/12/21 16:46 [facility] [id number]) OP-PT Subjective Patient Comments Patient Comments Pt reports he has continued HEP, standing exercises are getting easy. 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 Pt reports rolling and getting up/down off ground painful. When asked to demostrate, the rolling is the painful part. PT-OP-D Balance Start: 07/14/21 07:29 Freq: Status: Active Protocol: Document 07/14/21 13:01 [facility] (Rec: 07/14/21 13:48 [facility] [id number]) Balance Tests Single Limb Standing Single Limb- Right >30 sec w/ R hip shear & occ UE moving Single Limb- Left 9 sec w/ L hip shear and more UE movement PT-OP-F Manual Assessment Start: 07/14/21 07:29 Freq: Status: Active Protocol: Document 07/14/21 13:01 [facility] (Rec: 07/14/21 13:48 [facility] [id number]) Manual Assessments Soft Tissue Assessment Soft Tissue Mobility Assessment tight QL & ES L Joint Mobility Assessment Joint Mobility Assessment L iliac crest higher, L PSIS more post, equal greater trochanters PT-OP-G Mobility & Gait Start: 07/14/21 07:29 Freq: Status: Active Protocol: Document 07/14/21 13:01 [facility] (Rec: 07/14/21 13:48 [facility] [id number]) OP Mobility Evaluation Transfers Sit to Stand heavy arm use and very slow OP Gait Assessment Comments Gait Comments primarily leg walker, no pelvis motion. PT-OP-J Posture/Palpation/Skin Start: 07/14/21 07:29 Freq: Status: Active Protocol: Document 07/14/21 13:01 [facility] (Rec: 07/14/21 13:48 [facility] [id number]) Posture Evaluation Denisa Postural Classification System Denisa Postural Classifications Posterior/Anterior Lumbar Protective Mechanism Left AP 0 Lumbar Protective Mechanism Right AP 0 Lumbar Protective Mechanism Left PA 0 Lumbar Protective Mechanism Right PA 0 Comments Posture Comments pelvis sheared L & R SB, shifts weight into R foot PT-OP-K Range of Motion Start: 07/14/21 07:29 Freq: Status: Active Protocol: Document 07/14/21 13:01 [facility] (Rec: 07/14/21 13:48 [facility] [id number]) Lumbar Spine Range of Motion Lumbar Spine Active Degrees Flexion 39 Extension 31 Lateral Flexion Left 27 Lateral Flexion Right 13 ROM Limitations Pain Comments no movment w/lat shear w/sharp pain around L SI PT-OP-L Special Tests Start: 07/14/21 07:29 Freq: Status: Active Protocol: Document 07/14/21 13:01 [facility] (Rec: 07/14/21 13:48 [facility] [id number]) Special Tests Lumbar Spine Special Tests Slump Test Results positive PT-OP-M Strength Start: 07/14/21 07:29 Freq: Status: Active Protocol: Document 07/14/21 13:01 [facility] (Rec: 07/14/21 13:48 [facility] [id number]) Hip Strength Hip Manual Muscle Testing Right Flexion (L2) 3 Fair External Rotation 4 Good Internal Rotation 4- Good- Comments pain w/ IR in L spine Left Flexion (L2) 3+ Fair+ External Rotation 4- Good- Internal Rotation 4 Good Comments pain to get laying down so did not test abd & ext Knee Strength Knee Manual Muscle Testing Right Flexion (S2) 4+ Good+ Extension (L3) 4 Good Left Flexion (S2) 4+ Good+ Extension (L3) 4 Good Ankle/Foot Strength Ankle and Foot Manual Muscle Testing Right Dorsiflexion (L4) 5 Normal Left Dorsiflexion (L4) 5 Normal PT-OP-Q Treatments Start: 07/14/21 07:29 Freq: Status: Active Protocol: Document 08/12/21 16:14 JG (Rec: 08/12/21 16:46 [facility] [id number]) Therapeutic Exercises Sitting Exercises Balance Ball Sitting Exercise Name Pelvic Tilts and Circles Side bilateral Equipment Used 75 cm ball Reps/Minutes 4x15 Comments max cueing for tucking tailbone, tactile cues on spine and rhomboids Standing Exercises squat Standing Exercise Name mini Side bilateral Reps/Minutes 1x25 Comments pt completed squat well, min cueing for WBOS hip ext Side bilateral Resistance L1 Equipment Used resistance band Reps/Minutes 2x10 Comments pt performed with min cueing for breathing hip abd Side bilateral Resistance L1 Equipment Used resistance band Reps/Minutes 2x10 Comments pt required min cueing for knee ext, breathing Therapeutic Activity Therapeutic Activity Floor Transfers Name Getting down to and up from floor Reps/Minutes 1x2 Comments pt performed well using treatment table to support Rolling Name Rolling from prone > sidelying > back Reps/Minutes 1x4 Comments pt rolled with excessive rotation through lumbar spine, require max cueing for rolling arms, trunk, pelvis and legs together Manual Therapy Treatment Soft Tissue Mobilization lumbar spine Body Location L QL, L lateral superior to iliac crest Mobilization Type Sustained Pressure Body Position Sidelying Comments w/ ant elevation/post depression Joint Mobilizations lumbar Joint L3-L5 Direction transverse R glide w/ C/R ant elevation Body Position Sidelying PT-OP-R Modalities Start: 07/14/21 07:29 Freq: Status: Active Protocol: Document 08/12/21 16:14 JG (Rec: 08/12/21 16:46 JG [id number]) Electric Stimulation Electric Stimulation Interferential Current (IFC) Body Location L LB Duration (Minutes) 15 Intensity 16 Patient Position Sidelying Combined With Heat/Cold Hot Pack PT-OP-T Assessment and Plan Start: 07/14/21 07:29 Freq: Status: Active Protocol: Document 08/12/21 16:14 JG (Rec: 08/12/21 16:46 J[facility] [id number]) Physical Therapy Assessment Goals NIURKA Cupola Operator Insulation Goal (LTG) Pt will improve NIURKA score to no greater than 3/50 to show improved functional ability. LTG Duration 09/14/21 mobility Short Term Goal (STG) Pt will be able to do sit<> stand without inc pain STG Duration 08/18/21 Jail Goal (LTG) Pt will be able to walk as long as he'd like without inc pain LTG Duration 09/13/21 activities Short Term Goal (STG) Pt will be able to have enough ROM required to bend over and put on socks and tie shoes without inc pain STG Duration 08/13/21 Cupola Operator Insulation Goal (LTG) pt will have good lifitng mechanics so he is able to do heavier activities around the house without inc pain. LTG Duration strength Short Term Goal (STG) pt will be indep w/HEP STG Duration 08/13/21 Cupola Operator Insulation Goal (LTG) Pt will score at least 5/5 BLE strength testing in all planes and 3/5 LPM to show improved stability to inc ability to do typical activities LTG Duration 09/13/21 Assessment Summary Assessment Pt reported floor exercises as being painful to complete and while demostrating how he transferred to/from the floor identified that the rolling while on the floor was the painful part. The problem with rolling was that pt attempted bridging and twisting instead of proper pelvic girdle pattern. Pt did well with rolling cues and instruction while reporting decreased pain . Pt demostrated HEP successfully with min cueing required and did well with additional resistance. Pelvic tilts and circles were successfully taught to pt, with min cueing compared to supine position, on balance ball. Physical Therapy Plan Frequency and Duration Frequency of Treatment 1-2x/week Duration of Treatment 2 months Plan of Care Start Date 07/14/21 Plan of Care End Date 09/13/21 Next Visit Focus/Plan Next Note Type Treatment Note Next Visit Plan continue working on rolling, getting up/down off ground, pelvic tilt and rotation on ball, continuing to progress strengthing standing exercises
--- NOTE | 2021-08-17 16:01 | PT.OTN ---
Current Diagnoses Low back pain (08/17/21) Difficulty in walking, not elsewhere classified (08/17/21) Abnormal posture (08/17/21) Weakness (08/17/21) Physical Therapy Treatment Note PT-OP-A Visit Information Start: 07/14/21 07:29 Freq: Status: Active Protocol: Document 08/17/21 15:20 DCW (Rec: 08/17/21 16:01 DCW [id number]) Out-Patient Physical Therapy Visit Information Visit Information Visit Type Treatment Note Visit Start Time 15:20 Visit Stop Time 16:15 Total Visit Minutes 55 Visit Number 7 Number of APPLE TURNER Visits 0 PT-OP-B Current Condition Start: 07/14/21 07:29 Freq: Status: Active Protocol: Document 07/14/21 13:01 [facility] (Rec: 07/14/21 13:48 [facility] [id number]) Current Condition History of Current Condition Onset Date Spring 2020 Current Complaints LBP History of Current Condition Pt reports LBP that started earlier this year and really strated becoming pronounced through the spring and summer. Unsure of onset. He does not have a lot of change in activity with change to spring but does do yard work and work on house some. Pt denies history of LBP. No surgeries. He does have Afib and had an ablation. Changing positions increses pain like getting up from sititng in a chair especially low chair like sofa or off toilet is very painful . If does it slowly and carefully with arms then he can manage it. Pt is primary CG for . His had brain surgeries and has had deterioration and has a lack of iniative function. He does shopping, makes meals and does cleaning. She is ambulatory. Needs help with getting in and out of tub but does other ADLs on her own. Pt has not been wearing socks d/t pain when putting them on. Picking things up on the floor when sitting can set it off. Pt reports B feet have hammer toes that have been acting up this year. 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 Pt reports toes have started giving him pain this year. His back hurts so he cannot reach his feet to trim them. He saw a nurse at [facility] that clipped toenails and said they weren't ingrown but toes may be a problem w/walking. Pt reprots he feels like chaffing between toes and more swelling. HE got bigger shoes to avoid toe compression. Prior Treatments and Tests none Treatment Goals Patient/Caregiver Goals Be able to heavy construction around yard (build heavy front fence/wall- lots of post hole digging and concrete work), know what problem is and understand more about condition, feel like he can do home and car care activities. Be able to bend over, be able to tie shoes & put on socks PT-OP-C Subjective Start: 07/14/21 07:29 Freq: Status: Active Protocol: Document 08/17/21 15:20 DCW (Rec: 08/17/21 16:01 DCW [id number]) OP-PT Subjective Patient Comments Patient Comments I'm doing a lot better, this program is really working for me. PT-OP-D Balance Start: 07/14/21 07:29 Freq: Status: Active Protocol: Document 07/14/21 13:01 [facility] (Rec: 07/14/21 13:48 [facility] [id number]) Balance Tests Single Limb Standing Single Limb- Right >30 sec w/ R hip shear & occ UE moving Single Limb- Left 9 sec w/ L hip shear and more UE movement PT-OP-F Manual Assessment Start: 07/14/21 07:29 Freq: Status: Active Protocol: Document 07/14/21 13:01 [facility] (Rec: 07/14/21 13:48 [facility] [id number]) Manual Assessments Soft Tissue Assessment Soft Tissue Mobility Assessment tight QL & ES L Joint Mobility Assessment Joint Mobility Assessment L iliac crest higher, L PSIS more post, equal greater trochanters PT-OP-G Mobility & Gait Start: 07/14/21 07:29 Freq: Status: Active Protocol: Document 07/14/21 13:01 [facility] (Rec: 07/14/21 13:48 [facility] [id number]) OP Mobility Evaluation Transfers Sit to Stand heavy arm use and very slow OP Gait Assessment Comments Gait Comments primarily leg walker, no pelvis motion. PT-OP-J Posture/Palpation/Skin Start: 07/14/21 07:29 Freq: Status: Active Protocol: Document 07/14/21 13:01 [facility] (Rec: 07/14/21 13:48 [facility] [id number]) Posture Evaluation Denisa Postural Classification System [facility] Postural Classifications Posterior/Anterior Lumbar Protective Mechanism Left AP 0 Lumbar Protective Mechanism Right AP 0 Lumbar Protective Mechanism Left PA 0 Lumbar Protective Mechanism Right PA 0 Comments Posture Comments pelvis sheared L & R SB, shifts weight into R foot PT-OP-K Range of Motion Start: 07/14/21 07:29 Freq: Status: Active Protocol: Document 07/14/21 13:01 [facility] (Rec: 07/14/21 13:48 [facility] [id number]) Lumbar Spine Range of Motion Lumbar Spine Active Degrees Flexion 39 Extension 31 Lateral Flexion Left 27 Lateral Flexion Right 13 ROM Limitations Pain Comments no movment w/lat shear w/sharp pain around L SI PT-OP-L Special Tests Start: 07/14/21 07:29 Freq: Status: Active Protocol: Document 07/14/21 13:01 [facility] (Rec: 07/14/21 13:48 [facility] [id number]) Special Tests Lumbar Spine Special Tests Slump Test Results positive PT-OP-M Strength Start: 07/14/21 07:29 Freq: Status: Active Protocol: Document 07/14/21 13:01 [facility] (Rec: 07/14/21 13:48 [facility] [id number]) Hip Strength Hip Manual Muscle Testing Right Flexion (L2) 3 Fair External Rotation 4 Good Internal Rotation 4- Good- Comments pain w/ IR in L spine Left Flexion (L2) 3+ Fair+ External Rotation 4- Good- Internal Rotation 4 Good Comments pain to get laying down so did not test abd & ext Knee Strength Knee Manual Muscle Testing Right Flexion (S2) 4+ Good+ Extension (L3) 4 Good Left Flexion (S2) 4+ Good+ Extension (L3) 4 Good Ankle/Foot Strength Ankle and Foot Manual Muscle Testing Right Dorsiflexion (L4) 5 Normal Left Dorsiflexion (L4) 5 Normal PT-OP-Q Treatments Start: 07/14/21 07:29 Freq: Status: Active Protocol: Document 08/17/21 15:20 DCW (Rec: 08/17/21 16:01 DCW [id number]) Gym Equipment Therapeutic Ball 1 Exercise Details Low Trunk Rotations Ball Size/Color Red - 55 cm Body Position Supine Therapeutic Exercises Sitting Exercises Balance Ball Sitting Exercise Name Pelvic Tilts and Circles Side bilateral Equipment Used 75 cm ball Reps/Minutes 4x15 Comments max cueing for tucking tailbone, tactile cues on spine and rhomboids Standing Exercises hip ext Side bilateral Resistance Green Equipment Used resistance band Reps/Minutes 2x10 Comments pt performed with min cueing for breathing hip abd Side bilateral Resistance L1 Equipment Used resistance band Reps/Minutes 2x10 Comments pt required min cueing for knee ext, breathing PT-OP-R Modalities Start: 07/14/21 07:29 Freq: Status: Active Protocol: Document 08/17/21 15:20 [facility] (Rec: 08/17/21 16:01 DCW [id number]) Electric Stimulation Electric Stimulation Interferential Current (IFC) Body Location L LB Duration (Minutes) 15 Intensity 20 Patient Position Sidelying Combined With Heat/Cold Hot Pack PT-OP-T Assessment and Plan Start: 07/14/21 07:29 Freq: Status: Active Protocol: Document 08/17/21 15:20 DC[facility] (Rec: 08/17/21 16:01 DCW [id number]) Physical Therapy Assessment Goals NIURKA Shelter Goal (LTG) Pt will improve NIURKA score to no greater than 3/50 to show improved functional ability. LTG Duration 09/14/21 mobility Short Term Goal (STG) Pt will be able to do sit<> stand without inc pain STG Duration 08/18/21 Shelter Goal (LTG) Pt will be able to walk as long as he'd like without inc pain LTG Duration 09/13/21 activities Short Term Goal (STG) Pt will be able to have enough ROM required to bend over and put on socks and tie shoes without inc pain STG Duration 08/13/21 Vat Packer Goal (LTG) pt will have good lifitng mechanics so he is able to do heavier activities around the house without inc pain. LTG Duration strength Short Term Goal (STG) pt will be indep w/HEP STG Duration 08/13/21 Shelter Goal (LTG) Pt will score at least 5/5 BLE strength testing in all planes and 3/5 LPM to show improved stability to inc ability to do typical activities LTG Duration 09/13/21 Assessment Summary Assessment Pt still having difficulty bending down to tie his shoes or getting up off the can, but otherwise has not been having many complaints with his ADLs. Showing significant improvement with core bracing and bed mobility. Physical Therapy Plan Frequency and Duration Frequency of Treatment 1-2x/week Duration of Treatment 2 months Plan of Care Start Date 07/14/21 Plan of Care End Date 09/13/21 Next Visit Focus/Plan Next Note Type Treatment Note Next Visit Plan continue working on rolling, getting up/down off ground, pelvic tilt and rotation on ball, continuing to progress strengthing standing exercises
--- NOTE | 2021-08-19 17:06 | PT.OTN ---
Current Diagnoses Low back pain (08/19/21) Difficulty in walking, not elsewhere classified (08/19/21) Abnormal posture (08/19/21) Weakness (08/19/21) Physical Therapy Treatment Note PT-OP-A Visit Information Start: 07/14/21 07:29 Freq: Status: Active Protocol: Document 08/19/21 15:05 [facility] (Rec: 08/19/21 17:06 [facility] [id number]) Out-Patient Physical Therapy Visit Information Visit Information Visit Type Treatment Note Visit Start Time 15:22 Visit Stop Time 16:17 Total Visit Minutes 55 Visit Number 8 Number of METAL BONDING HELPER Visits 0 PT-OP-B Current Condition Start: 07/14/21 07:29 Freq: Status: Active Protocol: Document 07/14/21 13:01 [facility] (Rec: 07/14/21 13:48 [facility] [id number]) Current Condition History of Current Condition Onset Date Spring 2020 Current Complaints LBP History of Current Condition Pt reports LBP that started earlier this year and really strated becoming pronounced through the spring and summer. Unsure of onset. He does not have a lot of change in activity with change to spring but does do yard work and work on house some. Pt denies history of LBP. No surgeries. He does have Afib and had an ablation. Changing positions increses pain like getting up from sititng in a chair especially low chair like sofa or off toilet is very painful . If does it slowly and carefully with arms then he can manage it. Pt is primary CG for . His had brain surgeries and has had deterioration and has a lack of iniative function. He does shopping, makes meals and does cleaning. She is ambulatory. Needs help with getting in and out of tub but does other ADLs on her own. Pt has not been wearing socks d/t pain when putting them on. Picking things up on the floor when sitting can set it off. Pt reports B feet have hammer toes that have been acting up this year. 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 Pt reports toes have started giving him pain this year. His back hurts so he cannot reach his feet to trim them. He saw a nurse at [facility] that clipped toenails and said they weren't ingrown but toes may be a problem w/walking. Pt reprots he feels like chaffing between toes and more swelling. HE got bigger shoes to avoid toe compression. Prior Treatments and Tests none Treatment Goals Patient/Caregiver Goals Be able to heavy construction around yard (build heavy front fence/wall- lots of post hole digging and concrete work), know what problem is and understand more about condition, feel like he can do home and car care activities. Be able to bend over, be able to tie shoes & put on socks PT-OP-C Subjective Start: 07/14/21 07:29 Freq: Status: Active Protocol: Document 08/19/21 15:05 [facility] (Rec: 08/19/21 17:06 [facility] [id number]) OP-PT Subjective Patient Comments Patient Comments Pt reports getting up/down from low surfaces and the gorund is going better. Still difficult to get socks on so just not wearing socks and he is okay w/that. Notes compliance w/HEP. Has not had to wear a lidocane patch in a week. Patient Reported Progress Improving PT-OP-D Balance Start: 07/14/21 07:29 Freq: Status: Active Protocol: Document 07/14/21 13:01 [facility] (Rec: 07/14/21 13:48 [facility] [id number]) Balance Tests Single Limb Standing Single Limb- Right >30 sec w/ R hip shear & occ UE moving Single Limb- Left 9 sec w/ L hip shear and more UE movement PT-OP-F Manual Assessment Start: 07/14/21 07:29 Freq: Status: Active Protocol: Document 07/14/21 13:01 [facility] (Rec: 07/14/21 13:48 [facility] [id number]) Manual Assessments Soft Tissue Assessment Soft Tissue Mobility Assessment tight QL & ES L Joint Mobility Assessment Joint Mobility Assessment L iliac crest higher, L PSIS more post, equal greater trochanters PT-OP-G Mobility & Gait Start: 07/14/21 07:29 Freq: Status: Active Protocol: Document 07/14/21 13:01 [facility] (Rec: 07/14/21 13:48 [facility] [id number]) OP Mobility Evaluation Transfers Sit to Stand heavy arm use and very slow OP Gait Assessment Comments Gait Comments primarily leg walker, no pelvis motion. PT-OP-J Posture/Palpation/Skin Start: 07/14/21 07:29 Freq: Status: Active Protocol: Document 07/14/21 13:01 [facility] (Rec: 07/14/21 13:48 [facility] [id number]) Posture Evaluation [facility] Postural Classification System Denisa Postural Classifications Posterior/Anterior Lumbar Protective Mechanism Left AP 0 Lumbar Protective Mechanism Right AP 0 Lumbar Protective Mechanism Left PA 0 Lumbar Protective Mechanism Right PA 0 Comments Posture Comments pelvis sheared L & R SB, shifts weight into R foot PT-OP-K Range of Motion Start: 07/14/21 07:29 Freq: Status: Active Protocol: Document 07/14/21 13:01 [facility] (Rec: 07/14/21 13:48 [facility] [id number]) Lumbar Spine Range of Motion Lumbar Spine Active Degrees Flexion 39 Extension 31 Lateral Flexion Left 27 Lateral Flexion Right 13 ROM Limitations Pain Comments no movment w/lat shear w/sharp pain around L SI PT-OP-L Special Tests Start: 07/14/21 07:29 Freq: Status: Active Protocol: Document 07/14/21 13:01 [facility] (Rec: 07/14/21 13:48 [facility] [id number]) Special Tests Lumbar Spine Special Tests Slump Test Results positive PT-OP-M Strength Start: 07/14/21 07:29 Freq: Status: Active Protocol: Document 07/14/21 13:01 [facility] (Rec: 07/14/21 13:48 [facility] [id number]) Hip Strength Hip Manual Muscle Testing Right Flexion (L2) 3 Fair External Rotation 4 Good Internal Rotation 4- Good- Comments pain w/ IR in L spine Left Flexion (L2) 3+ Fair+ External Rotation 4- Good- Internal Rotation 4 Good Comments pain to get laying down so did not test abd & ext Knee Strength Knee Manual Muscle Testing Right Flexion (S2) 4+ Good+ Extension (L3) 4 Good Left Flexion (S2) 4+ Good+ Extension (L3) 4 Good Ankle/Foot Strength Ankle and Foot Manual Muscle Testing Right Dorsiflexion (L4) 5 Normal Left Dorsiflexion (L4) 5 Normal PT-OP-Q Treatments Start: 07/14/21 07:29 Freq: Status: Active Protocol: Document 08/19/21 15:05 [facility] (Rec: 08/19/21 17:06 [facility] [id number]) Gym Equipment Therapeutic Ball seated Ball Size/Color 75cm Body Position Sitting Reps/Duration 12 Comments december 1 Exercise Details Low Trunk Rotations Ball Size/Color Red Body Position Supine Reps/Duration 12 B Therapeutic Exercises Supine Exercises 3 Supine Exercise Name SKTC Side bilateral Reps/Minutes 30 sec 2 Supine Exercise Name DKTC Side bilateral Reps/Minutes 30 sec Sitting Exercises Balance Ball Sitting Exercise Name Pelvic Tilts and Circles Side bilateral Equipment Used 75 cm ball Reps/Minutes 15 ea Comments max cueing for tucking tailbone, tactile cues on spine and rhomboids Standing Exercises lunge Side bilateral Reps/Minutes 10 Comments cues for foot position for start & knees during motion Other Exercises quadruped Other Exercise Name cat/camel Reps/Minutes 15 Comments cueing for lumbar flex-pt has sig lack of lumbar flex Manual Therapy Treatment Soft Tissue Mobilization lumbar spine Body Location L QL, L lateral superior to iliac crest Mobilization Type Sustained Pressure Body Position Prone Joint Mobilizations innominate Joint L ER FM hip Joint L inf glide FM, hip on axis ER FM PT-OP-R Modalities Start: 07/14/21 07:29 Freq: Status: Active Protocol: Document 08/19/21 15:05 [facility] (Rec: 08/19/21 17:06 [facility] [id number]) Electric Stimulation Electric Stimulation Interferential Current (IFC) Body Location L LB Duration (Minutes) 15 Intensity 20 Patient Position Sidelying Combined With Heat/Cold Hot Pack PT-OP-T Assessment and Plan Start: 07/14/21 07:29 Freq: Status: Active Protocol: Document 08/19/21 15:05 [facility] (Rec: 08/19/21 17:06 [facility] [id number]) Physical Therapy Assessment Goals NIURKA Supply Chain Design Manager Goal (LTG) Pt will improve NIURKA score to no greater than 3/50 to show improved functional ability. LTG Duration 09/14/21 mobility Short Term Goal (STG) Pt will be able to do sit<> stand without inc pain STG Duration 08/18/21 Supply Chain Design Manager Goal (LTG) Pt will be able to walk as long as he'd like without inc pain LTG Duration 09/13/21 activities Short Term Goal (STG) Pt will be able to have enough ROM required to bend over and put on socks and tie shoes without inc pain STG Duration 08/13/21 Supply Chain Design Manager Goal (LTG) pt will have good lifitng mechanics so he is able to do heavier activities around the house without inc pain. LTG Duration strength Short Term Goal (STG) pt will be indep w/HEP STG Duration 08/13/21 Supply Chain Design Manager Goal (LTG) Pt will score at least 5/5 BLE strength testing in all planes and 3/5 LPM to show improved stability to inc ability to do typical activities LTG Duration 09/13/21 Assessment Summary Assessment Pt has limited L hip ER in flex positon that limits his ability to put on socks and shoes. He had improved hip flex but still limisted rot after inf glide. Improved in prone w/ER but still shows limit in flexed positon which is limited d/t discomofrt about to start in LB. Physical Therapy Plan Frequency and Duration Frequency of Treatment 1-2x/week Duration of Treatment 2 months Plan of Care Start Date 07/14/21 Plan of Care End Date 09/13/21 Next Visit Focus/Plan Next Note Type Treatment Note Next Visit Plan work on lumbar flex and ability to ER L>R hip for donning socks/shoes w/inc ease
--- NOTE | 2021-08-24 16:03 | PT.OTN ---
Current Diagnoses Low back pain (08/24/21) Difficulty in walking, not elsewhere classified (08/24/21) Abnormal posture (08/24/21) Weakness (08/24/21) Physical Therapy Treatment Note PT-OP-A Visit Information Start: 07/14/21 07:29 Freq: Status: Active Protocol: Document 08/24/21 15:31 [facility] (Rec: 08/24/21 16:03 [facility] [id number]) Out-Patient Physical Therapy Visit Information Visit Information Visit Type Treatment Note Visit Note 07/09 Visit Start Time 15:23 Visit Stop Time 16:16 Total Visit Minutes 53 Visit Number 9 Number of MEDICAL DEVICE SALES REPRESENTATIVE Visits 0 PT-OP-B Current Condition Start: 07/14/21 07:29 Freq: Status: Active Protocol: Document 07/14/21 13:01 [facility] (Rec: 07/14/21 13:48 [facility] [id number]) Current Condition History of Current Condition Onset Date Spring 2020 Current Complaints LBP History of Current Condition Pt reports LBP that started earlier this year and really strated becoming pronounced through the spring and summer. Unsure of onset. He does not have a lot of change in activity with change to spring but does do yard work and work on house some. Pt denies history of LBP. No surgeries. He does have Afib and had an ablation. Changing positions increses pain like getting up from sititng in a chair especially low chair like sofa or off toilet is very painful . If does it slowly and carefully with arms then he can manage it. Pt is primary CG for . His had brain surgeries and has had deterioration and has a lack of iniative function. He does shopping, makes meals and does cleaning. She is ambulatory. Needs help with getting in and out of tub but does other ADLs on her own. Pt has not been wearing socks d/t pain when putting them on. Picking things up on the floor when sitting can set it off. Pt reports B feet have hammer toes that have been acting up this year. 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 Pt reports toes have started giving him pain this year. His back hurts so he cannot reach his feet to trim them. He saw a nurse at [facility] that clipped toenails and said they weren't ingrown but toes may be a problem w/walking. Pt reprots he feels like chaffing between toes and more swelling. HE got bigger shoes to avoid toe compression. Prior Treatments and Tests none Treatment Goals Patient/Caregiver Goals Be able to heavy construction around yard (build heavy front fence/wall- lots of post hole digging and concrete work), know what problem is and understand more about condition, feel like he can do home and car care activities. Be able to bend over, be able to tie shoes & put on socks PT-OP-C Subjective Start: 07/14/21 07:29 Freq: Status: Active Protocol: Document 08/24/21 15:31 [facility] (Rec: 08/24/21 16:03 [facility] [id number]) OP-PT Subjective Patient Comments Patient Comments Pt reports after his sessions he always feels younger and taller and when doing exercises at home. Notes he wore a lidocane patch yesterday d/t feeling a little back discomfort but only dit it d/t having to take someone the MD in [facility] and iddn't want back to get int the way Patient Reported Progress Improving PT-OP-D Balance Start: 07/14/21 07:29 Freq: Status: Active Protocol: Document 07/14/21 13:01 [facility] (Rec: 07/14/21 13:48 [facility] [id number]) Balance Tests Single Limb Standing Single Limb- Right >30 sec w/ R hip shear & occ UE moving Single Limb- Left 9 sec w/ L hip shear and more UE movement PT-OP-F Manual Assessment Start: 07/14/21 07:29 Freq: Status: Active Protocol: Document 07/14/21 13:01 [facility] (Rec: 07/14/21 13:48 [facility] [id number]) Manual Assessments Soft Tissue Assessment Soft Tissue Mobility Assessment tight QL & ES L Joint Mobility Assessment Joint Mobility Assessment L iliac crest higher, L PSIS more post, equal greater trochanters PT-OP-G Mobility & Gait Start: 07/14/21 07:29 Freq: Status: Active Protocol: Document 07/14/21 13:01 [facility] (Rec: 07/14/21 13:48 [facility] [id number]) OP Mobility Evaluation Transfers Sit to Stand heavy arm use and very slow OP Gait Assessment Comments Gait Comments primarily leg walker, no pelvis motion. PT-OP-J Posture/Palpation/Skin Start: 07/14/21 07:29 Freq: Status: Active Protocol: Document 07/14/21 13:01 [facility] (Rec: 07/14/21 13:48 [facility] [id number]) Posture Evaluation [facility] Postural Classification System Denisa Postural Classifications Posterior/Anterior Lumbar Protective Mechanism Left AP 0 Lumbar Protective Mechanism Right AP 0 Lumbar Protective Mechanism Left PA 0 Lumbar Protective Mechanism Right PA 0 Comments Posture Comments pelvis sheared L & R SB, shifts weight into R foot PT-OP-K Range of Motion Start: 07/14/21 07:29 Freq: Status: Active Protocol: Document 07/14/21 13:01 [facility] (Rec: 07/14/21 13:48 [facility] [id number]) Lumbar Spine Range of Motion Lumbar Spine Active Degrees Flexion 39 Extension 31 Lateral Flexion Left 27 Lateral Flexion Right 13 ROM Limitations Pain Comments no movment w/lat shear w/sharp pain around L SI PT-OP-L Special Tests Start: 07/14/21 07:29 Freq: Status: Active Protocol: Document 07/14/21 13:01 [facility] (Rec: 07/14/21 13:48 [facility] [id number]) Special Tests Lumbar Spine Special Tests Slump Test Results positive PT-OP-M Strength Start: 07/14/21 07:29 Freq: Status: Active Protocol: Document 07/14/21 13:01 [facility] (Rec: 07/14/21 13:48 [facility] [id number]) Hip Strength Hip Manual Muscle Testing Right Flexion (L2) 3 Fair External Rotation 4 Good Internal Rotation 4- Good- Comments pain w/ IR in L spine Left Flexion (L2) 3+ Fair+ External Rotation 4- Good- Internal Rotation 4 Good Comments pain to get laying down so did not test abd & ext Knee Strength Knee Manual Muscle Testing Right Flexion (S2) 4+ Good+ Extension (L3) 4 Good Left Flexion (S2) 4+ Good+ Extension (L3) 4 Good Ankle/Foot Strength Ankle and Foot Manual Muscle Testing Right Dorsiflexion (L4) 5 Normal Left Dorsiflexion (L4) 5 Normal PT-OP-Q Treatments Start: 07/14/21 07:29 Freq: Status: Active Protocol: Document 08/24/21 15:31 [facility] (Rec: 08/24/21 16:03 [facility] [id number]) Gym Equipment Therapeutic Ball seated Ball Size/Color 75cm Body Position Sitting Reps/Duration 12 Comments december Exercise Details Low Trunk Rotations Ball Size/Color Red Body Position Supine Reps/Duration 12 B Therapeutic Exercises Supine Exercises ER Supine Exercise Name figure 4 bent knee stretch Side bilateral Comments 30 sec 3 Supine Exercise Name SKTC Side bilateral Reps/Minutes 30 sec 2 Supine Exercise Name DKTC Side bilateral Reps/Minutes 30 sec 1 Supine Exercise Name butterfly stretch Side bilateral Reps/Minutes 45 sec Sitting Exercises Balance Ball Sitting Exercise Name Pelvic Tilts and Circles Side bilateral Equipment Used 75 cm ball Reps/Minutes 15 ea Comments max cueing for tucking tailbone, tactile cues on spine and rhomboids Standing Exercises lunge Side bilateral Reps/Minutes 15 Comments cues for foot position for start & knees during motion squat Standing Exercise Name mini Side bilateral Reps/Minutes 15 Comments cueing for WBOS & hips going back Other Exercises quadruped Other Exercise Name cat/camel Reps/Minutes 10 Comments cueing for lumbar flex-pt has sig lack of lumbar flex Manual Therapy Treatment Joint Mobilizations innominate Joint R flex FM hip Joint R>L inf glides PT-OP-R Modalities Start: 07/14/21 07:29 Freq: Status: Active Protocol: Document 08/24/21 15:31 [facility] (Rec: 08/24/21 16:03 [facility] [id number]) Electric Stimulation Electric Stimulation Interferential Current (IFC) Body Location L LB Duration (Minutes) 15 Intensity 20 Patient Position Sidelying Combined With Heat/Cold Hot Pack PT-OP-T Assessment and Plan Start: 07/14/21 07:29 Freq: Status: Active Protocol: Document 08/24/21 15:31 [facility] (Rec: 08/24/21 16:03 [facility] [id number]) Physical Therapy Assessment Goals NIURKA Custodial Goal (LTG) Pt will improve NIURKA score to no greater than 3/50 to show improved functional ability. LTG Duration 09/14/21 mobility Short Term Goal (STG) Pt will be able to do sit<> stand without inc pain STG Duration 08/18/21 Custodial Goal (LTG) Pt will be able to walk as long as he'd like without inc pain LTG Duration 09/13/21 activities Short Term Goal (STG) Pt will be able to have enough ROM required to bend over and put on socks and tie shoes without inc pain STG Duration 08/13/21 Comic Book Artist Goal (LTG) pt will have good lifitng mechanics so he is able to do heavier activities around the house without inc pain. LTG Duration strength Short Term Goal (STG) pt will be indep w/HEP STG Duration 08/13/21 Comic Book Artist Goal (LTG) Pt will score at least 5/5 BLE strength testing in all planes and 3/5 LPM to show improved stability to inc ability to do typical activities LTG Duration 09/13/21 Assessment Summary Assessment Pt required cueing for all exercises except ball exercises he did beter with and required less VC for posture of upper trunk today. Lunges and squats required cues for knee position. Physical Therapy Plan Frequency and Duration Frequency of Treatment 1-2x/week Duration of Treatment 2 months Plan of Care Start Date 07/14/21 Plan of Care End Date 09/13/21 Next Visit Focus/Plan Next Note Type Progress Note Next Visit Plan work on lumbar flex and ability to ER L>R hip for donning socks/shoes w/inc ease
--- NOTE | 2021-10-28 08:34 | PT.OPDS ---
Current Diagnoses Low back pain (08/24/21) Difficulty in walking, not elsewhere classified (08/24/21) Abnormal posture (08/24/21) Weakness (08/24/21) Visit Care Team Role Provider Type Giovanni Vincent MD Attending Provider Physician Primary Care Provider Referring Provider Specialty: Family Practice Address: [address] [place], [address] Email: [email or web address] Visit Number Visit Number 9 Discharge Summary PT-OP-B Current Condition Start: 07/14/21 07:29 Freq: Status: Active Protocol: Document 07/14/21 13:01 [facility] (Rec: 07/14/21 13:48 [facility] [id number]) Current Condition History of Current Condition Onset Date Spring 2020 Current Complaints LBP History of Current Condition Pt reports LBP that started earlier this year and really strated becoming pronounced through the spring and summer. Unsure of onset. He does not have a lot of change in activity with change to spring but does do yard work and work on house some. Pt denies history of LBP. No surgeries. He does have Afib and had an ablation. Changing positions increses pain like getting up from sititng in a chair especially low chair like sofa or off toilet is very painful . If does it slowly and carefully with arms then he can manage it. Pt is primary CG for . His had brain surgeries and has had deterioration and has a lack of iniative function. He does shopping, makes meals and does cleaning. She is ambulatory. Needs help with getting in and out of tub but does other ADLs on her own. Pt has not been wearing socks d/t pain when putting them on. Picking things up on the floor when sitting can set it off. Pt reports B feet have hammer toes that have been acting up this year. 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 Pt reports toes have started giving him pain this year. His back hurts so he cannot reach his feet to trim them. He saw a nurse at [facility] that clipped toenails and said they weren't ingrown but toes may be a problem w/walking. Pt reprots he feels like chaffing between toes and more swelling. HE got bigger shoes to avoid toe compression. Prior Treatments and Tests none Treatment Goals Patient/Caregiver Goals Be able to heavy construction around yard (build heavy front fence/wall- lots of post hole digging and concrete work), know what problem is and understand more about condition, feel like he can do home and car care activities. Be able to bend over, be able to tie shoes & put on socks PT-OP-C Subjective Start: 07/14/21 07:29 Freq: Status: Active Protocol: Document 08/24/21 15:31 [facility] (Rec: 08/24/21 16:03 [facility] [id number]) OP-PT Subjective Patient Comments Patient Comments Pt reports after his sessions he always feels younger and taller and when doing exercises at home. Notes he wore a lidocane patch yesterday d/t feeling a little back discomfort but only dit it d/t having to take someone the MD in [facility] and iddn't want back to get int the way Patient Reported Progress Improving PT-OP-D Balance Start: 07/14/21 07:29 Freq: Status: Active Protocol: Document 07/14/21 13:01 [facility] (Rec: 07/14/21 13:48 [facility] [id number]) Balance Tests Single Limb Standing Single Limb- Right >30 sec w/ R hip shear & occ UE moving Single Limb- Left 9 sec w/ L hip shear and more UE movement PT-OP-F Manual Assessment Start: 07/14/21 07:29 Freq: Status: Active Protocol: Document 07/14/21 13:01 [facility] (Rec: 07/14/21 13:48 [facility] [id number]) Manual Assessments Soft Tissue Assessment Soft Tissue Mobility Assessment tight QL & ES L Joint Mobility Assessment Joint Mobility Assessment L iliac crest higher, L PSIS more post, equal greater trochanters PT-OP-G Mobility & Gait Start: 07/14/21 07:29 Freq: Status: Active Protocol: Document 07/14/21 13:01 [facility] (Rec: 07/14/21 13:48 [facility] [id number]) OP Mobility Evaluation Transfers Sit to Stand heavy arm use and very slow OP Gait Assessment Comments Gait Comments primarily leg walker, no pelvis motion. PT-OP-J Posture/Palpation/Skin Start: 07/14/21 07:29 Freq: Status: Active Protocol: Document 07/14/21 13:01 [facility] (Rec: 07/14/21 13:48 [facility] [id number]) Posture Evaluation Denisa Postural Classification System Denisa Postural Classifications Posterior/Anterior Lumbar Protective Mechanism Left AP 0 Lumbar Protective Mechanism Right AP 0 Lumbar Protective Mechanism Left PA 0 Lumbar Protective Mechanism Right PA 0 Comments Posture Comments pelvis sheared L & R SB, shifts weight into R foot PT-OP-K Range of Motion Start: 07/14/21 07:29 Freq: Status: Active Protocol: Document 07/14/21 13:01 [facility] (Rec: 07/14/21 13:48 [facility] [id number]) Lumbar Spine Range of Motion Lumbar Spine Active Degrees Flexion 39 Extension 31 Lateral Flexion Left 27 Lateral Flexion Right 13 ROM Limitations Pain Comments no movment w/lat shear w/sharp pain around L SI PT-OP-L Special Tests Start: 07/14/21 07:29 Freq: Status: Active Protocol: Document 07/14/21 13:01 [facility] (Rec: 07/14/21 13:48 [facility] [id number]) Special Tests Lumbar Spine Special Tests Slump Test Results positive PT-OP-M Strength Start: 07/14/21 07:29 Freq: Status: Active Protocol: Document 07/14/21 13:01 [facility] (Rec: 07/14/21 13:48 [facility] [id number]) Hip Strength Hip Manual Muscle Testing Right Flexion (L2) 3 Fair External Rotation 4 Good Internal Rotation 4- Good- Comments pain w/ IR in L spine Left Flexion (L2) 3+ Fair+ External Rotation 4- Good- Internal Rotation 4 Good Comments pain to get laying down so did not test abd & ext Knee Strength Knee Manual Muscle Testing Right Flexion (S2) 4+ Good+ Extension (L3) 4 Good Left Flexion (S2) 4+ Good+ Extension (L3) 4 Good Ankle/Foot Strength Ankle and Foot Manual Muscle Testing Right Dorsiflexion (L4) 5 Normal Left Dorsiflexion (L4) 5 Normal PT-OP-T Assessment and Plan Start: 07/14/21 07:29 Freq: Status: Active Protocol: Document 10/28/21 08:33 [facility] (Rec: 10/28/21 08:34 [facility] [id number]) Physical Therapy Assessment Assessment Summary Assessment For Aug 25: this patient called and let me know that he would like to cancel his remaining appointments - through the Aug. He states he has an interruption and will not be able to come in for at least 2 weeks. He did not provide further information. He did mention that he does want to continue therapy and does not want to be d/c unless it is absolutely necessary. He states he will call once he knows more to schedule some more appts. Pt has not called to schedule more appts at this time and is DC d/t no longer attending PT Physical Therapy Plan Discharge Physical Therapy Discharge Reasons No Longer Attending PT
== END 2021-11-30 08:45 ==
LOC: PHYS 15:15
PROVIDERS: PCP Family Medicine; Referring Provider Family Medicine; Visit Provider Family Medicine
DX: R53.1 Weakness (principal); R29.3 Abnormal posture; R26.2 Difficulty in walking, not elsewhere classified
CPT/HCPCS: 97014; 97110; 97140; 97162; 97530; G0283

== ENCOUNTER → 2022-04-12 16:40 | Outpatient (CLI) | payer OTHER, MEDICAID, SELFPAY ==
[2022-04-12 18:18] LABS: Alanine Aminotransferase 31 IU/L (<50); Albumin 4.1 g/dL (3.5-5.0); Albumin Globulin Ratio 1.3 (1.0-2.8); Alkaline Phosphatase 77 U/L (38-126); Aspartate Aminotransferase 36 IU/L (17-59); BUN Creatinine Ratio 22.9 (6-22); Blood Urea Nitrogen 19 mg/dL (9-20); Calcium 9.1 mg/dL (8.4-10.2); Carbon Dioxide 28 mmol/L (22-32); Chloride 104 mmol/L (98-107); Cholesterol 168 mg/dL (140-199); Estimated Glomerular Filt Rate > 60 mL/min (>60); Globulin 3.2 g/dL (1.7-4.1); Glucose 88 mg/dL (80-110); HDL Cholesterol 42 mg/dL (40-60); HEMOLYSIS < 15 (0-50); LDL Cholesterol Calculated 110 mg/dL (<100); Potassium 3.9 mmol/L (3.4-5.1); Sodium 139 mmol/L (137-145); Total Protein 7.3 g/dL (6.3-8.2); Triglycerides 82 mg/dL (35-150)
== END ==
PROVIDERS: PCP Family Medicine; Referring Provider Internal Medicine Cardiovascular Disease; Visit Provider Internal Medicine Cardiovascular Disease
DX: E78.5 Hyperlipidemia, unspecified (principal)
CPT/HCPCS: 36415; 80053; 80061

== ENCOUNTER → 2022-04-14 09:08 | Outpatient (CLI) | payer OTHER, MEDICAID, SELFPAY ==
--- NOTE | 2022-04-14 | DI.ECHO.S_ITS ---
[facility] +---------+ : : [address] : : : : [id number] : : : : Phone: [phone] +---------+ Echocardiogram Report + + :Name: YOLI MCKAY Study Date: 04/14/2022 Height: 71 in : :[facility] ReadingLocation: Weight: 180 lb : : Gender: Male BSA: 2.0 m2 : :: 1945 Age: 77 yrs BP: 118/93 mmHg: :Reason For Study: MITRAL VALVE INSUFFICIENCY : :Ordering Physician: TEA, : :BERNABE Performed By: Carli Astudillo : :Referring: BERNABE METCALF : + + Interpretation Summary The patient was in atrial fibrillation with heart rates between 72-107 bpm during the exam. Previously sinus rhythm. The left ventricle is normal in size. Left ventricular ejection fraction is estimated to be 55 +/- 5%. Previous LV ejection fraction 60 to 65%. The right ventricle is normal in size and function. There is severe biatrial enlargement. Both atria have significantly increased in size since the prior echo exam. There is moderate mitral regurgitation. No significant change in MR. There is moderate tricuspid regurgitation. Compared to the prior echo exam, there has been an increase in TR severity. The right ventricular systolic pressure is estimated to be at least 29 mmHg based on an estimated right atrial pressure of 3 mm Hg. There is mild luminal irregularity and echogenicity in the abdominal aorta, suggestive of aortic atherosclerotic disease. Mild atherosclerotic plaque(s) in the aortic arch. Procedure: A two-dimensional transthoracic echocardiogram with color flow and Doppler was performed. The study quality was technically adequate. Comparison is made with the echocardiogram of 07/07/2020. The patient was in atrial fibrillation with heart rates between 72-107 bpm during the exam. Left Ventricle: The left ventricle is normal in size. Proximal septal thickening is noted. There is no echo evidence for significant left ventricular outflow tract obstruction. There is no thrombus. Left ventricular ejection fraction is estimated to be 55 +/- 5%. There are no focal wall motion abnormalities. Diastolic function could not be accurately assessed due to atrial fibrillation. Right Ventricle: The right ventricle is normal in size and function. Atria: The left atrium is severely dilated. Both atria have significantly increased in size since the prior echo exam. There is severe biatrial enlargement. The right atrium is severely dilated. There is no Doppler evidence for an interatrial shunt. Mitral Valve: The mitral valve leaflets appear mildly thickened, but open well. There is mild mitral annular calcification. There is moderate mitral regurgitation. The mitral regurgitant jet is eccentrically directed. Compared to the prior echo study, there has been no change in the severity of mitral regurgitation. Aortic Valve: The aortic valve is trileaflet. The aortic valve opens well. There is no aortic valve stenosis. No aortic regurgitation is present. Compared to the prior echo study, there has been a decrease in the severity of aortic regurgitation. Tricuspid Valve: The tricuspid annulus is dilated. There is moderate tricuspid regurgitation. The right ventricular systolic pressure is estimated to be at least 29 mmHg based on an estimated right atrial pressure of 3 mm Hg. Compared to the prior echo exam, there has been an increase in TR severity. Pulmonic Valve: The pulmonic valve leaflets are thin and pliable; valve motion is normal. There is mild pulmonic regurgitation. Great Vessels: The aortic root is normal size. The dimensions of the ascending aorta are normal. There is mild luminal irregularity and echogenicity in the abdominal aorta, suggestive of aortic atherosclerotic disease. Mild atherosclerotic plaque(s) in the aortic arch. The IVC is of normal diameter and collapses greater than 50% with a sniff. This suggests a low right atrial pressure of 3 mm Hg. Pericardium/ Pleura There is no pericardial effusion. There is no pleural effusion. MMode/2D Measurements & Calculations LVIDd: 4.6 cm LVOT diam: 2.0 cm LVIDs: 3.0 cm Ao root diam: 3.5 cm FS: 34.5 % asc Aorta Diam: 3.5 cm IVSd: 0.86 cm LVPWd: 0.92 cm LV k[place]. diameter/BSA (cm/m^2): 2.3 LV sys. diameter/BSA (cm/m^2): 1.5 LA A2 area: 26.9 cm2 RA long axis: 7.1 cm LA A4 area: 30.3 cm2 RA area: 26.7 cm2 LA length (vol): 7.1 cm RA vol: 85.7 ml LA vol: 97.2 ml RA : 42.5 ml/m2 LA vol index: 48.2 ml/m2 IVC diam: 1.9 cm RVD1 (basal): 3.6 cm RVD2 (mid): 3.0 cm TAPSE: 2.0 cm Doppler Measurements & Calculations Ao V2 max: 96.3 cm/sec LVOT Max Chucky: 77.2 cm/sec Ao V2 mean: 71.0 cm/sec LV V1 max P.4 mmHg Ao max P.7 mmHg LV V1 VTI: 14.1 cm Ao mean P.2 mmHg DUSTY(I,D): 2.3 cm2 Ao V2 VTI: 19.3 cm DUSTY(V,D): 2.5 cm2 sev ratio: 0.73 DUSTY indexed to BSA (cm^2/m^2): 1.1 MV E max chucky: 71.8 cm/sec TR max chucky: 253.1 cm/sec MV A max chucky: 1.5 cm/sec TR max P.6 mmHg MV E/A: 47.5 PA V2 max: 91.4 cm/sec Med Peak E' Chucky: 7.3 cm/sec PA V2 mean: 58.2 cm/sec E/E' med: 9.9 PA mean P.6 mmHg Lat Peak E' Chucky: 14.0 cm/sec PA pr(Accel): 44.3 mmHg E/E' lat: 5.1 E/e' average: 7.5 MV dec time: 0.17 sec MR ERO: 0.20 cm2 MR PISA: 3.0 cm2 SV(LVOT): 43.9 ml MR flow rate: 109.4 cm3/sec MR PISA radius: 0.69 cm Reading Physician:01:59 PM
== END ==
PROVIDERS: PCP Family Medicine; Referring Provider Internal Medicine Cardiovascular Disease; Visit Provider Internal Medicine Cardiovascular Disease
DX: I08.1 Rheumatic disorders of both mitral and tricuspid valves (principal)
CPT/HCPCS: 93306

== ENCOUNTER → 2022-11-23 10:39 | Outpatient (CLI) | payer OTHER, SELFPAY ==
[2022-11-23 11:11] LABS: COVID19 -Nasal RAPID Negative (Negative)
== END ==
PROVIDERS: Family Provider Family Medicine; PCP Family Medicine; Visit Provider Surgery
DX: Z01.812 Encounter for preprocedural laboratory examination (principal); Z20.822 Contact with and (suspected) exposure to COVID-19
CPT/HCPCS: 87635; C9803

== ENCOUNTER 2022-11-24 13:45 | Day surgery (SDC) | payer OTHER, SELFPAY ==
--- NOTE | 2022-11-24 | PATH_ITS ---
[facility] Accession Number: [id number] No. of containers..01 Tissue . 01 Material submitted: . colon - SIGMOID POLYPS . 01 Diagnosis: Sigmoid Colon, Polyps, Biopsies: Hyperplastic polyps. MRV 11/30/2022 1148 Local . 01 Electronically signed: . Shira Cordon MD, Pathologist NPI- [id number] . 01 Gross description: . SIGMOID POLYPS: Received in formalin are 2 fragment(s) of trujillo, soft tissue measuring 0.4 x 0.2 x 0.2 cm to 0.2 x 0.1 x 0.1 cm submitted entirely in 1 cassette(s) /CPE 11/25/2022 0834 Local . 01 Pathologist provided ICD-10: K63.5 . 01 CPT . 426460 Specimen Comment: A courtesy copy of this report has been sent to [phone] Performed at: 01 [facility] [address] [place] [address], [place], [place] [id number] MD Nicholas Frederick MD Phone: [phone]
[2022-11-24 14:20] VITALS: BP 122/82; PULSE 65; RESP 16; TEMP 36.2; O2SAT 97; BMI 29.7
[2022-11-24] MEDS: LACTATED RINGERS 1,000 ML 84 ML IV (14:40)
--- NOTE | 2022-11-24 15:50 | PM.HP.1 ---
History of Present Illness History of Present Illness Date Patient Seen: 11/24/22 Time Patient Seen: 15:50 Chief complaint: Colonoscopy Narrative: Andrew is a 77-year-old man who had polyps removed on colonoscopy 5 years ago and he is back for his surveillance follow-up colonoscopy. Patient History Medical History Atrial fibrillation Atrial fibrillation status post cardioversion History of alcohol abuse History of tobacco use Hypertension Mitral valve regurgitation Tricuspid valve regurgitation Surgical History History of inguinal hernia repair History of tonsillectomy Family & Social History Family History Mother Cancer Social History: household members significant other Tobacco & Substance use: Smoking Status Never smoker alcohol intake current alcohol intake frequency 3 or more drinks per day Substance Use Type does not use Meds Home Medications and Allergies Home Medications Medication Instructions Recorded Confirmed Type folic acid 1 mg tablet 1 mg PO QDAY #30 tabs 02/12/17 11/24/22 Rx cholecalciferol (vitamin D3) 50 2,000 unit PO DAILY 06/27/18 11/24/22 History mcg (2,000 unit) capsule gxodjgys-zpu-dfqbo acid 300 1 tab PO DAILY 06/27/18 08/08/22 History mcg-lycopene 600 mcg-lutein 300 mcg tablet (Centrum Silver Ultra Men's) vitamin B complex (B Complex 1 1 tab PO DAILY 06/27/18 08/08/22 History tablet) glucosamine HCl 500 mg tablet 500 mg PO TID 08/08/22 08/08/22 History metoprolol tartrate 37.5 mg tablet 37.5 mg PO BID 08/08/22 08/08/22 History omega 0-pgd-mfv-fish oil 300 1 cap PO DAILY 08/08/22 08/08/22 History mg-1,000 mg capsule (Fish Oil) rivaroxaban 20 mg tablet (Xarelto) 20 mg PO DAILY 08/08/22 08/08/22 History simvastatin 10 mg tablet 10 mg PO DAILY 08/08/22 08/08/22 History sodium sul 1.479 gram-potas ch See Rx Instructions PO PER PKG DIR 08/08/22 08/08/22 Rx 0.188 gram-magnes sul 0.225 gram #24 tabs tablet (Sutab) Allergies Allergy/AdvReac Type Severity Reaction Status Date / Time No Known Drug Allergies Allergy Verified 11/24/22 14:17 Exam Vital Signs (past 8 hours): - 11/24/22 14:20 Temperature 97.2 F L Pulse Rate 65 Respiratory Rate 16 Blood Pressure 122/82 Pulse Oximetry 97 Oxygen Delivery Method Room Air Oxygen Delivery Method Room Air Const General: No acute distress Assessment & Plan Assessment and plan (1) Personal history of colonic polyps: Status: Acute Plan We reviewed the risks and benefits of colonoscopy and he would like to proceed. Time Spent With Patient Critical Care time: I spent a total of [] minutes of critical care time on this patient's care today; this time is exclusive of procedural time.
--- NOTE | 2022-11-24 16:25 | PM.OP.COLON ---
Operative Date/Time/Diagnoses Date of procedure: 11/24/22 Time of procedure: 16:25 Pre-op diagnosis: History of colon polyps Post-op diagnosis: same Procedure & Clinicians Study performed: Colonoscopy Same procedure as scheduled: Yes Surgeon: Srini Hilario Procedure Notes Procedure in detail: Surgeon: Srini Hilario MD Anesthesia: Dr. Orozco Procedure: The patient was brought to the endoscopy suite, placed in left lateral decubitus position. The patient was connected to monitoring devices. A time-out was performed. Sedation was administered. Once the patient was adequately sedated, a digital rectal exam was performed and was normal. The scope was then inserted and advanced to the cecum where the appendiceal orifice was identified and photographed. The scope was then slowly withdrawn over greater than 6 minutes. The mucosa was thoroughly inspected. There was rather extensive sigmoid diverticulosis. There were 2 small polyps in the sigmoid colon about 5 mm each and both removed with a cold snare. The scope was retroflexed in the rectum. No other abnormalities were seen. The scope was straightened and removed. The patient was awakened and brought to recovery. Scope withdrawal time: 12 minutes Sedation time: 20 minutes EBL: 5 mL Findings: Diverticulosis of the sigmoid colon and 2 small sigmoid colon polyps about 5 mm each Post-procedure Disposition: PACU
[2022-11-24 16:27] VITALS: BP 96/65; PULSE 62; RESP 16; TEMP 36.2; O2SAT 95
[2022-11-24 16:34] VITALS: BP 100/65; PULSE 63; RESP 18; O2SAT 93
[2022-11-24 16:37] VITALS: BP 106/78; PULSE 58; RESP 16; TEMP 36.3; O2SAT 92
[2022-11-24 16:44] VITALS: BP 106/78; PULSE 58; RESP 16; O2SAT 95
== END 2022-11-24 17:23 | disposition home or self-care (01) ==
PROVIDERS: Family Provider Family Medicine; PCP Family Medicine; Referring Provider Surgery; Visit Provider Surgery
PROC: 0DJD8ZZ Inspection of Lower Intestinal Tract, Via Natural or Artificial Opening Endoscopic (ICD-10-PCS; CPT 45378; principal; 2022-11-24 14:45)
DX: Z12.11 Encounter for screening for malignant neoplasm of colon (principal); Z86.010 Personal history of colon polyps; K57.30 Diverticulosis of large intestine without perforation or abscess without bleeding; K63.5 Polyp of colon
CPT/HCPCS: 45385; J3010

== ENCOUNTER 2023-02-21 15:15 | Outpatient (RCR) | payer OTHER, MEDICAID, SELFPAY ==
--- NOTE | 2022-12-27 17:13 | PT.OIE ---
Current Diagnoses Pain in right shoulder (12/27/22) Past Medical History (Last Reviewed 08/08/22 @ 14:41 by Maureen Kelly RN) Atrial fibrillation Atrial fibrillation status post cardioversion History of alcohol abuse History of tobacco use Hypertension Mitral valve regurgitation Tricuspid valve regurgitation Past Surgical History (Last Reviewed 08/08/22 @ 14:41 by Maureen Kelly RN) History of inguinal hernia repair History of tonsillectomy Visit Care Team Role Provider Type Giovanni Vincent MD Attending Provider Physician Family Provider Primary Care Provider Referring Provider Specialty: [facility] Address: [facility] [place], [facility] Email: [email or web address] Physical Therapy Initial Evaluation PT-OP-A Visit Information Start: 12/23/22 18:18 Freq: Status: Active Protocol: Document 12/27/22 15:34 LRN (Rec: 12/27/22 17:10 LRN [id number]) Out-Patient Physical Therapy Visit Information Visit Information Visit Type Initial Evaluation Visit Start Time 15:34 Visit Stop Time 16:14 Total Visit Minutes 40 Visit Number 1 Evaluation Information Evaluation Date 12/27/22 Precautions Precautions Controlled HBP, history of back pain, Ablation x 2 to control A.Fib (last time last year), Memory changes. PT-OP-B Current Condition Start: 12/23/22 18:18 Freq: Status: Active Protocol: Document 12/27/22 15:34 LRN (Rec: 12/27/22 17:10 LRN [id number]) Current Condition History of Current Condition Onset Date 2 months ago Current Complaints R shoulder History of Current Condition Insidous onset. Became gradually harder to raise his arm to put on a coat. Not as bad as it used to be a month ago. 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 Prior Treatments and Tests Dr. Vincent did physical exam. Developmental History Developmental History Few years ago did therapy for back. Treatment Goals Patient/Caregiver Goals Pt goal is to be able to reach up for things and put on his coat w/o pain and w/o his opposite arm helping. 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 PT-OP-C Subjective Start: 12/23/22 18:18 Freq: Status: Active Protocol: Document 12/27/22 15:34 LRN (Rec: 12/27/22 17:10 LRN [id number]) Patient Questionnaires Quick Dash- Upper Extremity Quick Dash UE Score 9.09 Quick Dash UE Impairment 1 to 19% Impaired (Score 1-19) OP-PT Pain Assessment Pain Assessment Grid Paper Pain Assessment Grid Completed Yes Location R shoulder pain Pain Location Details R Deltoid medial and anterior Intensity 1 Description Aching Frequency Constant Other Pain Aggravating Factors Raising the arm, putting on coat. Pain Alleviating Factors None PT-OP-H Neuro Start: 12/23/22 18:18 Freq: Status: Active Protocol: Document 12/27/22 15:34 LRN (Rec: 12/27/22 17:10 LRN [id number]) Sensation Evaluation Gross Sensation Gross Sensation WNL Deep Tendon Reflex & Clonus Assessment Deep Tendon Reflex Left Tricep Deep Tendon Reflex 2+ Normal Right Tricep Deep Tendon Reflex 1+ Diminished Bilateral Brachioradialis Deep Tendon Reflex 2+ Normal Bilateral Bicep Deep Tendon Reflex 2+ Normal PT-OP-J Posture/Palpation/Skin Start: 12/23/22 18:18 Freq: Status: Active Protocol: Document 12/27/22 15:34 LRN (Rec: 12/27/22 17:10 LRN [id number]) Posture Evaluation Position Standing Head/C-Spine Posture Forward Head T-Spine Posture Increased Kyphosis Shoulder Posture (L) Rounded,(R) Rounded,(L) Forward,(R) Forward,(R) Elevated Scapula Posture (R) Retracted,(R) Rotated Down Arm Posture (L) Internally Rotated,(R) Internally Rotated Comments Posture Comments Mild IR of arms. C-curve of spine with apex on left at T12 Palpation Assessment Location R Infraspinatus Palpation Location R Infraspinatus Palpation Details Decreased ms tone. R shoulder Palpation Location RC attachments at R humeral head, and lateral Deltoid Palpation Findings Tenderness PT-OP-K Range of Motion Start: 12/23/22 18:18 Freq: Status: Active Protocol: Document 12/27/22 15:34 LRN (Rec: 12/27/22 17:10 LRN [id number]) Cervical Spine Range of Motion Cervical Spine Active Degrees Testing Position Sitting Flexion 50 Extension 40 Rotation Left 42 Rotation Right 42 Lateral Flexion Left 20 Lateral Flexion Right 20 Shoulder Goniometric Range of Motion Shoulder Left Active Testing Position Standing Flexion 155 Extension 85 Abduction 170 External Rotation at 0 degrees Abduction 64 Internal Rotation Behind Back (text) T8 Comments Reaching Behind head: T2 Right Active Shoulder ROM WFL No Testing Position Standing Flexion 90 Extension 60 Abduction 52 External Rotation at 0 degrees Abduction 64 Internal Rotation Behind Back (text) L 3 Comments Pain free range, slow movement . Behind head - Not able to reach side of head w/o pain. PT-OP-L Special Tests Start: 12/23/22 18:18 Freq: Status: Active Protocol: Document 12/27/22 15:34 LRN (Rec: 12/27/22 17:10 LRN [id number]) Special Tests Cervical Spine Special Tests Upper Limb Tension Test Test Results + Median nerve Traction Test Results + Comments Decreased R lateral shoulder discomfort Foraminal Compression Test Results - Spurling's Test Test Results - bilaterally Shoulder Special Tests Belly Press Test Results - R shoulder Comments Discomfort of R shoulder, no pain. IR/Horizontal ADD Impingement Test Results + R shoulder Comments Pain with IR shoulder Elevation Impingement Test Results + R shoulder Comments Pain PT-OP-M Strength Start: 12/23/22 18:18 Freq: Status: Active Protocol: Document 12/27/22 15:34 LRN (Rec: 12/27/22 17:10 LRN [id number]) Shoulder Strength Shoulder Manual Muscle Testing Right Flexion 4 Good Abduction (C5) 4 Good External Rotation 3 Fair Internal Rotation 5 Normal Comments Pain with MMT. Left Flexion 5 Normal Abduction (C5) 5 Normal External Rotation 5 Normal Internal Rotation 5 Normal PT-OP-Q Treatments Start: 12/23/22 18:18 Freq: Status: Active Protocol: Document 12/27/22 15:34 LRN (Rec: 12/27/22 17:10 LRN [id number]) Self-Care/Home Management Treatment Education Patient Education Home Exercise Program Other Education Discussed results of evaluation, goals, and plan of care (POC). Pt agreeable to goals and POC. Activities Self-Care/Home Management Activities I/S pt in Samb[place] wipe ex & forward punch ex. Issued HEP: Sitting windshield wipe with added written I/S for sitting Forward punch w/ arm on table. Written I/S for ex's to be done in painfree range. Pt I/ S to use cold pack to R shoulder after exercise or when pain. PT-OP-T Assessment and Plan Start: 12/23/22 18:18 Freq: Status: Active Protocol: Document 12/27/22 15:34 LRN (Rec: 12/27/22 17:10 LRN [id number]) Physical Therapy Assessment Rehab Potential Rehabilitation Potential Good Evaluation Complexity Number of Personal Factors/Comorbidities 1-2 Number of Body Systems Impaired 4 or More Clinical Presentation at Evaluation Evolving Impairments Impairments Activity Tolerance,Pain, Posture,ROM,Soft Tissue Mobility,Strength Goals Three Impairment Decreased R shoulder strength Short Term Goal (STG) Pt will be able to lift his R arm overhead without having to use the L arm to assist and without pain. STG Duration 02/10/23 Medical Clerk Goal (LTG) Improve R shoulder strength with pt able to put his coat on without pain. LTG Duration 03/27/23 Two Impairment Decreased R shoulder AROM [facility] Goal (LTG) Improve R shoulder AROM to 155 deg's with pt able to reach overhead without pain. LTG Duration 03/27/23 One Impairment Lacks appropriate self care HEP. Short Term Goal (STG) Pt will be educated in use of cold pack for pain management and in proper posturing. STG Duration 02/10/23 Medical Clerk Goal (LTG) Pt will be independent with a self care HEP of R shoulder ROM and RC strengthening exercise. LTG Duration 03/27/23 Assessment Summary Assessment Pt is a 77 year old male who presents with R RC dysfunction with +impingement with limited active R shoulder ROM and decreased strength due to R shoulder pain. His tests for cervical involvement is inconclusive as results are variable. The pt demonstrates poor posturing which may be exacerbating his pain, and he probably has UE neural tension . His function appears to be good as indicated with UE QuickDASH score of 9.09 (1-19% impared). The pt will benefit from skilled physical therapy to achieve the above stated goals. Physical Therapy Plan Frequency and Duration Frequency of Treatment 2x/Week Plan of Care Start Date 12/27/22 Plan of Care End Date 03/27/23 Therapeutic Interventions Therapeutic Interventions Home Exercise Program,Joint Mobilizations,Manual Therapy, Neuromuscular Re-education, Patient/Caregiver Education, Self-Care/Home Management,Soft Tissue Mobilization,Taping, Therapeutic Exercises Modalities Cold Pack/Ice Massage,Hot Packs,Ultrasound Next Visit Focus/Plan Next Note Type Treatment Note Next Visit Plan Assess R shoulder PROM and start ROM ex's and RC strengthening. Education: Postural and pain management education. Manual: STM to R Deltoid; Stretch R anterior pecs and RC ; JMT of T/S & ?GHJ Exercises: R RC, T/S extension, Pec stretch. Modalities: US, K-tape, CP
--- NOTE | 2022-12-27 17:13 | PT.OPPOC ---
Physical, Occupational & Speech Therapy At [facility] Current Diagnoses Pain in right shoulder (12/27/22) Visit Care Team Role Provider Type Giovanni Vincent MD Attending Provider Physician Family Provider Primary Care Provider Referring Provider Specialty: Family Practice Address: [place], [address] Email: [email or web address] Plan Of Care PT-OP-T Assessment and Plan Start: 12/23/22 18:18 Freq: Status: Active Protocol: Document 12/27/22 15:34 LRN (Rec: 12/27/22 17:10 LRN [id number]) Physical Therapy Assessment Rehab Potential Rehabilitation Potential Good Evaluation Complexity Number of Personal Factors/Comorbidities 1-2 Number of Body Systems Impaired 4 or More Clinical Presentation at Evaluation Evolving Impairments Impairments Activity Tolerance,Pain, Posture,ROM,Soft Tissue Mobility,Strength Goals Three Impairment Decreased R shoulder strength Short Term Goal (STG) Pt will be able to lift his R arm overhead without having to use the L arm to assist and without pain. STG Duration 02/10/23 Lead Fabricator Goal (LTG) Improve R shoulder strength with pt able to put his coat on without pain. LTG Duration 03/27/23 Two Impairment Decreased R shoulder AROM Lead Fabricator Goal (LTG) Improve R shoulder AROM to 155 deg's with pt able to reach overhead without pain. LTG Duration 03/27/23 One Impairment Lacks appropriate self care HEP. Short Term Goal (STG) Pt will be educated in use of cold pack for pain management and in proper posturing. STG Duration 02/10/23 Lead Fabricator Goal (LTG) Pt will be independent with a self care HEP of R shoulder ROM and RC strengthening exercise. LTG Duration 03/27/23 Assessment Summary Assessment Pt is a 77 year old male who presents with R RC dysfunction with +impingement with limited active R shoulder ROM and decreased strength due to R shoulder pain. His tests for cervical involvement is inconclusive as results are variable. The pt demonstrates poor posturing which may be exacerbating his pain, and he probably has UE neural tension . His function appears to be good as indicated with UE QuickDASH score of 9.09 (1-19% impared). The pt will benefit from skilled physical therapy to achieve the above stated goals. Physical Therapy Plan Frequency and Duration Frequency of Treatment 2x/Week Plan of Care Start Date 12/27/22 Plan of Care End Date 03/27/23 Therapeutic Interventions Therapeutic Interventions Home Exercise Program,Joint Mobilizations,Manual Therapy, Neuromuscular Re-education, Patient/Caregiver Education, Self-Care/Home Management,Soft Tissue Mobilization,Taping, Therapeutic Exercises Modalities Cold Pack/Ice Massage,Hot Packs,Ultrasound Next Visit Focus/Plan Next Note Type Treatment Note Next Visit Plan Assess R shoulder PROM and start ROM ex's and RC strengthening. Education: Postural and pain management education. Manual: STM to R Deltoid; Stretch R anterior pecs and RC ; JMT of T/S & ?GHJ Exercises: R RC, T/S extension, Pec stretch. Modalities: US, K-tape, CP Plan of Care Dates Plan of Care Start Date 12/27/22 Plan of Care End Date 03/27/23 Electronically Signed by: Elnea Ace, PT 12/27/22 1805 If you are in agreement with this Plan of Care, please return a signed and dated copy. I have reviewed this Plan of Care and certify that the skilled therapy services above are required to meet the patient?s needs. Physician Signature Date Printed Name and Credentials Clinical Instructor Signature Printed Name and Credentials
--- NOTE | 2022-12-29 16:25 | PT.OTN ---
Current Diagnoses Pain in right shoulder (12/29/22) Physical Therapy Treatment Note PT-OP-A Visit Information Start: 12/23/22 18:18 Freq: Status: Active Protocol: Document 12/29/22 15:14 LRN (Rec: 12/29/22 16:23 LRN [id number]) Out-Patient Physical Therapy Visit Information Visit Information Visit Type Treatment Note Visit Note PT only Visit Start Time 15:14 Visit Stop Time 15:59 Total Visit Minutes 45 Visit Number 12/11 to start Evaluation Information Evaluation Date 12/27/22 Precautions Precautions Controlled HBP, history of back pain, Ablation x 2 to control A.Fib (last time last year), Memory changes. PT-OP-B Current Condition Start: 12/23/22 18:18 Freq: Status: Active Protocol: Document 12/27/22 15:34 LRN (Rec: 12/27/22 17:10 LRN [id number]) Current Condition History of Current Condition Onset Date 2 months ago Current Complaints R shoulder History of Current Condition Insidous onset. Became gradually harder to raise his arm to put on a coat. Not as bad as it used to be a month ago. 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 Prior Treatments and Tests Dr. Vincent did physical exam. Developmental History Developmental History Few years ago did therapy for back. Treatment Goals Patient/Caregiver Goals Pt goal is to be able to reach up for things and put on his coat w/o pain and w/o his opposite arm helping. 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 PT-OP-C Subjective Start: 12/23/22 18:18 Freq: Status: Active Protocol: Document 12/29/22 15:14 LRN (Rec: 12/29/22 16:23 LRN [id number]) OP-PT Subjective Patient Comments Patient Comments ........ PT-OP-H Neuro Start: 12/23/22 18:18 Freq: Status: Active Protocol: Document 12/27/22 15:34 LRN (Rec: 12/27/22 17:10 LRN [id number]) Sensation Evaluation Gross Sensation Gross Sensation WNL Deep Tendon Reflex & Clonus Assessment Deep Tendon Reflex Left Tricep Deep Tendon Reflex 2+ Normal Right Tricep Deep Tendon Reflex 1+ Diminished Bilateral Brachioradialis Deep Tendon Reflex 2+ Normal Bilateral Bicep Deep Tendon Reflex 2+ Normal PT-OP-J Posture/Palpation/Skin Start: 12/23/22 18:18 Freq: Status: Active Protocol: Document 12/27/22 15:34 LRN (Rec: 12/27/22 17:10 LRN [id number]) Posture Evaluation Position Standing Head/C-Spine Posture Forward Head T-Spine Posture Increased Kyphosis Shoulder Posture (L) Rounded,(R) Rounded,(L) Forward,(R) Forward,(R) Elevated Scapula Posture (R) Retracted,(R) Rotated Down Arm Posture (L) Internally Rotated,(R) Internally Rotated Comments Posture Comments Mild IR of arms. C-curve of spine with apex on left at T12 Palpation Assessment Location R Infraspinatus Palpation Location R Infraspinatus Palpation Details Decreased ms tone. R shoulder Palpation Location RC attachments at R humeral head, and lateral Deltoid Palpation Findings Tenderness PT-OP-K Range of Motion Start: 12/23/22 18:18 Freq: Status: Active Protocol: Document 12/29/22 15:14 LRN (Rec: 12/29/22 16:23 LRN [id number]) Shoulder Goniometric Range of Motion Shoulder Left Passive Shoulder ROM WFL Yes Testing Position Supine Flexion 157 Abduction 160 External Rotation at 45 degrees 85 Abduction Internal Rotation 30 Right Passive Shoulder ROM WFL No Testing Position Supine Flexion 100 Abduction 65 External Rotation at 45 degrees 60 Abduction Internal Rotation 20 Comments Flexion at end of treatment: 117 deg's. Right Active Shoulder ROM WFL No Testing Position Standing Flexion 110 PT-OP-L Special Tests Start: 12/23/22 18:18 Freq: Status: Active Protocol: Document 12/27/22 15:34 LRN (Rec: 12/27/22 17:10 LRN [id number]) Special Tests Cervical Spine Special Tests Upper Limb Tension Test Test Results + Median nerve Traction Test Results + Comments Decreased R lateral shoulder discomfort Foraminal Compression Test Results - Spurling's Test Test Results - bilaterally Shoulder Special Tests Belly Press Test Results - R shoulder Comments Discomfort of R shoulder, no pain. IR/Horizontal ADD Impingement Test Results + R shoulder Comments Pain with IR shoulder Elevation Impingement Test Results + R shoulder Comments Pain PT-OP-M Strength Start: 12/23/22 18:18 Freq: Status: Active Protocol: Document 12/27/22 15:34 LRN (Rec: 12/27/22 17:10 LRN [id number]) Shoulder Strength Shoulder Manual Muscle Testing Right Flexion 4 Good Abduction (C5) 4 Good External Rotation 3 Fair Internal Rotation 5 Normal Comments Pain with MMT. Left Flexion 5 Normal Abduction (C5) 5 Normal External Rotation 5 Normal Internal Rotation 5 Normal PT-OP-Q Treatments Start: 12/23/22 18:18 Freq: Status: Active Protocol: Document 12/29/22 15:14 LRN (Rec: 12/29/22 16:23 LRN [id number]) Therapeutic Exercises Supine Exercises R shdr ROM Supine Exercise Name R shoulder PROM: Flex, ER < IR Side right Lat Pull down Supine Exercise Name Scap retract/depression Side bilateral Equipment Used Cane, L2 TB Reps/Minutes 15x Comments Extra time to determine max tolerated resistance Scapular retraction Supine Exercise Name Scap pinches Reps/Minutes 5 SH x 3' Comments Phys cuing needed for proper motion Shldr IR Supine Exercise Name Stretch and IR AAROM Side right Shldr ER Supine Exercise Name AAROM ER Side right Scap protraction Supine Exercise Name V - punches to the ceiling. Side bilateral Reps/Minutes 3' Comments Phys & v cuing needed for proper motion Sitting Exercises Shoulder FF Sitting Exercise Name FF table slide Side right Reps/Minutes 3' Scap retract/depression Sitting Exercise Name Scap retract/depression Side right Reps/Minutes 3' Self-Care/Home Management Treatment Education Patient Education Home Exercise Program Activities Self-Care/Home Management Activities Issued & reviewed HEP: Shldr flex-table slide & wall slide; scap retract/depression. PT-OP-T Assessment and Plan Start: 12/23/22 18:18 Freq: Status: Active Protocol: Document 12/29/22 15:14 LRN (Rec: 12/29/22 16:23 LRN [id number]) Physical Therapy Assessment Goals Three Impairment Decreased R shoulder strength Short Term Goal (STG) Pt will be able to lift his R arm overhead without having to use the L arm to assist and without pain. 12/29/22: Pt able to lift L arm >90 deg's w/o L arm assist, WITH R shoulder pain. STG Duration 02/10/23 progressing Long-Term Goal (LTG) Improve R shoulder strength with pt able to put his coat on without pain. LTG Duration 03/27/23 Two Impairment Decreased R shoulder AROM Long-Term Goal (LTG) Improve R shoulder AROM to 155 deg's with pt able to reach overhead without pain. LTG Duration 03/27/23 One Impairment Lacks appropriate self care HEP. Short Term Goal (STG) Pt will be educated in use of cold pack for pain management and in proper posturing. STG Duration 02/10/23 Long-Term Goal (LTG) Pt will be independent with a self care HEP of R shoulder ROM and RC strengthening exercise. 12/27/22: HEP: Sitting shdr ER /IR 12/29/22: HEP: Sitting FF stretch-table slide, standing FF wall slide & scap pinch/ depression. LTG Duration 03/27/23 progressed 12/29/22 Assessment Summary Assessment Pt with R RC dysfunction with +impingement, cervical involvement is inconclusive. PROM today is decreased compared to the L side. Pt poor posturing exacerbates R shoulder IR/forearm pronation and impingement. Pt was very limited with IR and painful IR /ER. Pt PROM improved after treatment and pt noted less pain when touching his face with R UE. Physical Therapy Plan Frequency and Duration Frequency of Treatment 2x/Week Plan of Care Start Date 12/27/22 Plan of Care End Date 03/27/23 Next Visit Focus/Plan Next Note Type Treatment Note Next Visit Plan End with CP at pt request. Review R shoulder PROM-HEP issued, and progress ROM ex's and RC strengthening. Education: Pain management & proper posture education. Manual: STM to R Deltoid; Cont stretch R anterior pecs and RC; JMT of T/S & ?GHJ Exercises: R RC, T/S extension, Pec stretch. Modalities: US, K-tape, CP
--- NOTE | 2023-01-03 15:24 | PT.OTN ---
Current Diagnoses Pain in right shoulder (01/03/23) Physical Therapy Treatment Note PT-OP-A Visit Information Start: 12/23/22 18:18 Freq: Status: Active Protocol: Document 01/03/23 14:38 LRN (Rec: 01/03/23 15:23 LRN [id number]) Out-Patient Physical Therapy Visit Information Visit Information Visit Type Treatment Note Visit Note PT only Visit Start Time 14:38 Visit Stop Time 15:16 Total Visit Minutes 38 Visit Number 3/12 to start Evaluation Information Evaluation Date 12/27/22 Precautions Precautions Controlled HBP, history of back pain, Ablation x 2 to control A.Fib (last time last year), Memory changes. PT-OP-B Current Condition Start: 12/23/22 18:18 Freq: Status: Active Protocol: Document 12/27/22 15:34 LRN (Rec: 12/27/22 17:10 LRN [id number]) Current Condition History of Current Condition Onset Date 2 months ago Current Complaints R shoulder History of Current Condition Insidous onset. Became gradually harder to raise his arm to put on a coat. Not as bad as it used to be a month ago. 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 Prior Treatments and Tests Dr. Vincent did physical exam. Developmental History Developmental History Few years ago did therapy for back. Treatment Goals Patient/Caregiver Goals Pt goal is to be able to reach up for things and put on his coat w/o pain and w/o his opposite arm helping. 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 PT-OP-C Subjective Start: 12/23/22 18:18 Freq: Status: Active Protocol: Document 01/03/23 14:38 LRN (Rec: 01/03/23 15:23 LRN [id number]) OP-PT Subjective Patient Comments Patient Comments States no change. 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 PT-OP-H Neuro Start: 12/23/22 18:18 Freq: Status: Active Protocol: Document 12/27/22 15:34 LRN (Rec: 12/27/22 17:10 LRN [id number]) Sensation Evaluation Gross Sensation Gross Sensation WNL Deep Tendon Reflex & Clonus Assessment Deep Tendon Reflex Left Tricep Deep Tendon Reflex 2+ Normal Right Tricep Deep Tendon Reflex 1+ Diminished Bilateral Brachioradialis Deep Tendon Reflex 2+ Normal Bilateral Bicep Deep Tendon Reflex 2+ Normal PT-OP-J Posture/Palpation/Skin Start: 12/23/22 18:18 Freq: Status: Active Protocol: Document 12/27/22 15:34 LRN (Rec: 12/27/22 17:10 LRN [id number]) Posture Evaluation Position Standing Head/C-Spine Posture Forward Head T-Spine Posture Increased Kyphosis Shoulder Posture (L) Rounded,(R) Rounded,(L) Forward,(R) Forward,(R) Elevated Scapula Posture (R) Retracted,(R) Rotated Down Arm Posture (L) Internally Rotated,(R) Internally Rotated Comments Posture Comments Mild IR of arms. C-curve of spine with apex on left at T12 Palpation Assessment Location R Infraspinatus Palpation Location R Infraspinatus Palpation Details Decreased ms tone. R shoulder Palpation Location RC attachments at R humeral head, and lateral Deltoid Palpation Findings Tenderness PT-OP-K Range of Motion Start: 12/23/22 18:18 Freq: Status: Active Protocol: Document 12/29/22 15:14 LRN (Rec: 12/29/22 16:23 LRN [id number]) Shoulder Goniometric Range of Motion Shoulder Left Passive Shoulder ROM WFL Yes Testing Position Supine Flexion 157 Abduction 160 External Rotation at 45 degrees 85 Abduction Internal Rotation 30 Right Passive Shoulder ROM WFL No Testing Position Supine Flexion 100 Abduction 65 External Rotation at 45 degrees 60 Abduction Internal Rotation 20 Comments Flexion at end of treatment: 117 deg's. Right Active Shoulder ROM WFL No Testing Position Standing Flexion 110 PT-OP-L Special Tests Start: 12/23/22 18:18 Freq: Status: Active Protocol: Document 12/27/22 15:34 LRN (Rec: 12/27/22 17:10 LRN [id number]) Special Tests Cervical Spine Special Tests Upper Limb Tension Test Test Results + Median nerve Traction Test Results + Comments Decreased R lateral shoulder discomfort Foraminal Compression Test Results - Spurling's Test Test Results - bilaterally Shoulder Special Tests Belly Press Test Results - R shoulder Comments Discomfort of R shoulder, no pain. IR/Horizontal ADD Impingement Test Results + R shoulder Comments Pain with IR shoulder Elevation Impingement Test Results + R shoulder Comments Pain PT-OP-M Strength Start: 12/23/22 18:18 Freq: Status: Active Protocol: Document 12/27/22 15:34 LRN (Rec: 12/27/22 17:10 LRN [id number]) Shoulder Strength Shoulder Manual Muscle Testing Right Flexion 4 Good Abduction (C5) 4 Good External Rotation 3 Fair Internal Rotation 5 Normal Comments Pain with MMT. Left Flexion 5 Normal Abduction (C5) 5 Normal External Rotation 5 Normal Internal Rotation 5 Normal PT-OP-Q Treatments Start: 12/23/22 18:18 Freq: Status: Active Protocol: Document 01/03/23 14:38 LRN (Rec: 01/03/23 15:23 LRN [id number]) Therapeutic Exercises Supine Exercises R shdr ROM Supine Exercise Name R shoulder PROM: Flex, ER < IR Side right Lat Pull down Supine Exercise Name Scap retract/depression Side bilateral Equipment Used Cane, L2 TB Reps/Minutes 15x 2 Comments Extra time to determine max tolerated resistance Scapular retraction Supine Exercise Name Scap pinches Reps/Minutes 5 SH x 3' Comments Phys cuing needed for proper motion Manual Therapy Treatment Joint Mobilizations T/S Joint T 2-T6 Direction PA Grade II Body Position Prone Reps/Duration 5' R Scapula Joint Scapulothoracic Direction Distraction, infer, super, AD/ AB Grade II Body Position L Sidelie Reps/Duration 6' R shoulder Joint GHJ Direction PA, Infer Grade III Body Position Supine Reps/Duration 4' Manual Techniques MWM Type R Scapular coordination of mvmt for flex/return Body Location R Scapular muscels Body Position Standing Reps/Duration 14' PT-OP-T Assessment and Plan Start: 12/23/22 18:18 Freq: Status: Active Protocol: Document 01/03/23 14:38 LRN (Rec: 01/03/23 15:23 LRN [id number]) Physical Therapy Assessment Goals Three Impairment Decreased R shoulder strength Short Term Goal (STG) Pt will be able to lift his R arm overhead without having to use the L arm to assist and without pain. 12/29/22: Pt able to lift L arm >90 deg's w/o L arm assist, WITH R shoulder pain. 01/03/23: R shoulder ROM equal to L shoulder w/o pain at end of treatment. STG Duration 02/10/23 (01/03/23: MET GOAL) Press Operator Heavy Duty Goal (LTG) Improve R shoulder strength with pt able to put his coat on without pain. LTG Duration 03/27/23 Two Impairment Decreased R shoulder AROM Press Operator Heavy Duty Goal (LTG) Improve R shoulder AROM to 155 deg's with pt able to reach overhead without pain. LTG Duration 03/27/23 One Impairment Lacks appropriate self care HEP. Short Term Goal (STG) Pt will be educated in use of cold pack for pain management and in proper posturing. STG Duration 02/10/23 Skilled Nursing Goal (LTG) Pt will be independent with a self care HEP of R shoulder ROM and RC strengthening exercise. 12/27/22: HEP: Sitting shdr ER /IR 12/29/22: HEP: Sitting FF stretch-table slide, standing FF wall slide & scap pinch/ depression. LTG Duration 03/27/23 progressed 12/29/22 Assessment Summary Assessment 77 year old male with R RC dysfunction with +impingement with limited active R shoulder ROM and decreased strength due to R shoulder pain. Pt has poor R SHR that improved with MWM. Pt able to do active shoulder flex without pain after treatment of strengthening and mobs. Physical Therapy Plan Frequency and Duration Frequency of Treatment 2x/Week Plan of Care Start Date 12/27/22 Plan of Care End Date 03/27/23 Next Visit Focus/Plan Next Note Type Treatment Note Next Visit Plan End with CP (per pt request). Review R shoulder PROM-HEP issued, and progress ROM ex's and RC strengthening. Education: Pain management & proper posture education. Manual: STM to R Deltoid; Cont stretch R anterior pecs and RC; JMT of T/S & ?GHJ Exercises: R RC, T/S extension, Pec stretch. Modalities: US, K-tape, CP
--- NOTE | 2023-01-05 16:59 | PT.OTN ---
Current Diagnoses Pain in right shoulder (01/05/23) Physical Therapy Treatment Note PT-OP-A Visit Information Start: 12/23/22 18:18 Freq: Status: Active Protocol: Document 01/05/23 14:36 LRN (Rec: 01/05/23 15:22 LRN [id number]) Out-Patient Physical Therapy Visit Information Visit Information Visit Type Treatment Note Visit Note PT only Visit Start Time 14:36 Visit Stop Time 15:14 Total Visit Minutes 38 Visit Number 4/ to start Evaluation Information Evaluation Date 12/27/22 Precautions Precautions Controlled HBP, history of back pain, Ablation x 2 to control A.Fib (last time last year), Memory changes. PT-OP-B Current Condition Start: 12/23/22 18:18 Freq: Status: Active Protocol: Document 12/27/22 15:34 LRN (Rec: 12/27/22 17:10 LRN [id number]) Current Condition History of Current Condition Onset Date 2 months ago Current Complaints R shoulder History of Current Condition Insidous onset. Became gradually harder to raise his arm to put on a coat. Not as bad as it used to be a month ago. 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 Prior Treatments and Tests Dr. Vincent did physical exam. Developmental History Developmental History Few years ago did therapy for back. Treatment Goals Patient/Caregiver Goals Pt goal is to be able to reach up for things and put on his coat w/o pain and w/o his opposite arm helping. 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 PT-OP-C Subjective Start: 12/23/22 18:18 Freq: Status: Active Protocol: Document 01/05/23 14:36 LRN (Rec: 01/05/23 15:22 LRN [id number]) OP-PT Subjective Patient Comments Patient Comments Pt reports might be a little less restrictive to move the R shoulder. States last summer was skipping rocks and had shoulder pain might have been when the pain started. States he has been trying to corrrect posture. States since the therapy session he can now lie on the R shoulder w/o pain. PT-OP-H Neuro Start: 12/23/22 18:18 Freq: Status: Active Protocol: Document 12/27/22 15:34 LRN (Rec: 12/27/22 17:10 [facility] [id number]) Sensation Evaluation Gross Sensation Gross Sensation WNL Deep Tendon Reflex & Clonus Assessment Deep Tendon Reflex Left Tricep Deep Tendon Reflex 2+ Normal Right Tricep Deep Tendon Reflex 1+ Diminished Bilateral Brachioradialis Deep Tendon Reflex 2+ Normal Bilateral Bicep Deep Tendon Reflex 2+ Normal PT-OP-J Posture/Palpation/Skin Start: 12/23/22 18:18 Freq: Status: Active Protocol: Document 12/27/22 15:34 LRN (Rec: 12/27/22 17:10 [facility] [id number]) Posture Evaluation Position Standing Head/C-Spine Posture Forward Head T-Spine Posture Increased Kyphosis Shoulder Posture (L) Rounded,(R) Rounded,(L) Forward,(R) Forward,(R) Elevated Scapula Posture (R) Retracted,(R) Rotated Down Arm Posture (L) Internally Rotated,(R) Internally Rotated Comments Posture Comments Mild IR of arms. C-curve of spine with apex on left at T12 Palpation Assessment Location R Infraspinatus Palpation Location R Infraspinatus Palpation Details Decreased ms tone. R shoulder Palpation Location RC attachments at R humeral head, and lateral Deltoid Palpation Findings Tenderness PT-OP-K Range of Motion Start: 12/23/22 18:18 Freq: Status: Active Protocol: Document 12/29/22 15:14 LRN (Rec: 12/29/22 16:23 [facility] [id number]) Shoulder Goniometric Range of Motion Shoulder Left Passive Shoulder ROM WFL Yes Testing Position Supine Flexion 157 Abduction 160 External Rotation at 45 degrees 85 Abduction Internal Rotation 30 Right Passive Shoulder ROM WFL No Testing Position Supine Flexion 100 Abduction 65 External Rotation at 45 degrees 60 Abduction Internal Rotation 20 Comments Flexion at end of treatment: 117 deg's. Right Active Shoulder ROM WFL No Testing Position Standing Flexion 110 PT-OP-L Special Tests Start: 12/23/22 18:18 Freq: Status: Active Protocol: Document 12/27/22 15:34 LRN (Rec: 12/27/22 17:10 [facility] [id number]) Special Tests Cervical Spine Special Tests Upper Limb Tension Test Test Results + Median nerve Traction Test Results + Comments Decreased R lateral shoulder discomfort Foraminal Compression Test Results - Spurling's Test Test Results - bilaterally Shoulder Special Tests Belly Press Test Results - R shoulder Comments Discomfort of R shoulder, no pain. IR/Horizontal ADD Impingement Test Results + R shoulder Comments Pain with IR shoulder Elevation Impingement Test Results + R shoulder Comments Pain PT-OP-M Strength Start: 12/23/22 18:18 Freq: Status: Active Protocol: Document 12/27/22 15:34 LRN (Rec: 12/27/22 17:10 LRN [id number]) Shoulder Strength Shoulder Manual Muscle Testing Right Flexion 4 Good Abduction (C5) 4 Good External Rotation 3 Fair Internal Rotation 5 Normal Comments Pain with MMT. Left Flexion 5 Normal Abduction (C5) 5 Normal External Rotation 5 Normal Internal Rotation 5 Normal PT-OP-Q Treatments Start: 12/23/22 18:18 Freq: Status: Active Protocol: Document 01/05/23 14:36 LRN (Rec: 01/05/23 15:22 LRN [id number]) Therapeutic Exercises Supine Exercises R shdr ROM Supine Exercise Name R shoulder PROM: Flex, ER < IR Side right Reps/Minutes 11' Sidelying Exercises T/S rot Sidelying Exercise Name I/S in HEP: Open Book Stretch Side bilateral Reps/Minutes End-range 1 breath hold, 10x each Comments Extra time for training of proper movement to not stretch anter shoulder jt Manual Therapy Treatment Joint Mobilizations T/S Joint T 2-T6 Direction PA, rot Grade II Body Position Prone Reps/Duration 5' R Scapula Joint Scapulothoracic Direction Distraction, infer, super, AD/ AB Grade II Body Position L Sidelie Reps/Duration 6' Self-Care/Home Management Treatment Education Patient Education Pain Management,Posture Other Education Educated pt in best sleep positioning on his sides. L side hugging a pilllow and R side in position of comfort since he is no longer having pain lying on the R side. Activities Self-Care/Home Management Activities I/S pt in HEP: Open book stretch. PT-OP-R Modalities Start: 12/23/22 18:18 Freq: Status: Active Protocol: Document 01/05/23 14:36 LRN (Rec: 01/05/23 16:52 LRN [id number]) Hot Pack/Cold Pack Treatment Cold Pack Location R shoulder Patient Position Hooklying Treatment Duration (minutes) 10 Patient Tolerance Good Comments Pt unable to do cryotherapy at home. PT-OP-T Assessment and Plan Start: 12/23/22 18:18 Freq: Status: Active Protocol: Document 01/05/23 14:36 LRN (Rec: 01/05/23 15:22 LRN [id number]) Physical Therapy Assessment Goals Three Impairment Decreased R shoulder strength Short Term Goal (STG) Pt will be able to lift his R arm overhead without having to use the L arm to assist and without pain. 12/29/22: Pt able to lift L arm >90 deg's w/o L arm assist, WITH R shoulder pain. 01/03/23: R shoulder ROM equal to L shoulder w/o pain at end of treatment. STG Duration 02/10/23 (01/03/23: MET GOAL) Bonding Agent Goal (LTG) Improve R shoulder strength with pt able to put his coat on without pain. LTG Duration 03/27/23 Two Impairment Decreased R shoulder AROM Residential Goal (LTG) Improve R shoulder AROM to 155 deg's with pt able to reach overhead without pain. LTG Duration 03/27/23 One Impairment Lacks appropriate self care HEP. Short Term Goal (STG) Pt will be educated in use of cold pack for pain management and in proper posturing. 01/05/23: Pt educated in proper posture sitting and standing. STG Duration 02/10/23 progressed 01/05/23 Residential Goal (LTG) Pt will be independent with a self care HEP of R shoulder ROM and RC strengthening exercise. 12/27/22: HEP: Sitting shdr ER /IR 12/29/22: HEP: Sitting FF stretch-table slide, standing FF wall slide & scap pinch/ depression. 01/05/23: I/S HEP: Open book stretch. LTG Duration 03/27/23 progressed 01/05/23 Assessment Summary Assessment Pt improving, can lie on R side to sleep w/o pain. Pt T /S is very stiff; therefore mobilization needed. Pt appears to have a good understanding of open book stretch. Physical Therapy Plan Frequency and Duration Frequency of Treatment 2x/Week Plan of Care Start Date 12/27/22 Plan of Care End Date 03/27/23 Next Visit Focus/Plan Next Note Type Treatment Note Next Visit Plan End with CP (per pt request). Review: proper posture education, R shoulder PROM-HEP issued, and progress ROM ex's and RC strengthening. NEXT: Issue HEP: open book stretch & educate/issue RICE self care for pain management. Manual: STM to R Deltoid; Cont stretch R anterior pecs and RC; JMT of T/S & ?GHJ Exercises: R RC, T/S extension, Pec stretch. Modalities: US, K-tape, CP
--- NOTE | 2023-01-10 13:48 | PT.OTN ---
Current Diagnoses Pain in right shoulder (01/10/23) Physical Therapy Treatment Note PT-OP-A Visit Information Start: 12/23/22 18:18 Freq: Status: Active Protocol: Document 01/10/23 13:02 LRN (Rec: 01/10/23 13:46 LRN [id number]) Out-Patient Physical Therapy Visit Information Visit Information Visit Type Treatment Note Visit Note PT only Visit Start Time 13:02 Visit Stop Time 13:52 Total Visit Minutes 52 Visit Number 5/ to start Evaluation Information Evaluation Date 12/27/22 Precautions Precautions Controlled HBP, history of back pain, Ablation x 2 to control A.Fib (last time last year), Memory changes. PT-OP-B Current Condition Start: 12/23/22 18:18 Freq: Status: Active Protocol: Document 12/27/22 15:34 LRN (Rec: 12/27/22 17:10 LRN [id number]) Current Condition History of Current Condition Onset Date 2 months ago Current Complaints R shoulder History of Current Condition Insidous onset. Became gradually harder to raise his arm to put on a coat. Not as bad as it used to be a month ago. 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 Prior Treatments and Tests Dr. Vincent did physical exam. Developmental History Developmental History Few years ago did therapy for back. Treatment Goals Patient/Caregiver Goals Pt goal is to be able to reach up for things and put on his coat w/o pain and w/o his opposite arm helping. 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 PT-OP-C Subjective Start: 12/23/22 18:18 Freq: Status: Active Protocol: Document 01/10/23 13:02 LRN (Rec: 01/10/23 13:46 LRN [id number]) OP-PT Subjective Patient Comments Patient Comments About the same. PT-OP-H Neuro Start: 12/23/22 18:18 Freq: Status: Active Protocol: Document 12/27/22 15:34 LRN (Rec: 12/27/22 17:10 LRN [id number]) Sensation Evaluation Gross Sensation Gross Sensation WNL Deep Tendon Reflex & Clonus Assessment Deep Tendon Reflex Left Tricep Deep Tendon Reflex 2+ Normal Right Tricep Deep Tendon Reflex 1+ Diminished Bilateral Brachioradialis Deep Tendon Reflex 2+ Normal Bilateral Bicep Deep Tendon Reflex 2+ Normal PT-OP-J Posture/Palpation/Skin Start: 12/23/22 18:18 Freq: Status: Active Protocol: Document 12/27/22 15:34 LRN (Rec: 12/27/22 17:10 LRN [id number]) Posture Evaluation Position Standing Head/C-Spine Posture Forward Head T-Spine Posture Increased Kyphosis Shoulder Posture (L) Rounded,(R) Rounded,(L) Forward,(R) Forward,(R) Elevated Scapula Posture (R) Retracted,(R) Rotated Down Arm Posture (L) Internally Rotated,(R) Internally Rotated Comments Posture Comments Mild IR of arms. C-curve of spine with apex on left at T12 Palpation Assessment Location R Infraspinatus Palpation Location R Infraspinatus Palpation Details Decreased ms tone. R shoulder Palpation Location RC attachments at R humeral head, and lateral Deltoid Palpation Findings Tenderness PT-OP-K Range of Motion Start: 12/23/22 18:18 Freq: Status: Active Protocol: Document 12/29/22 15:14 LRN (Rec: 12/29/22 16:23 LRN [id number]) Shoulder Goniometric Range of Motion Shoulder Left Passive Shoulder ROM WFL Yes Testing Position Supine Flexion 157 Abduction 160 External Rotation at 45 degrees 85 Abduction Internal Rotation 30 Right Passive Shoulder ROM WFL No Testing Position Supine Flexion 100 Abduction 65 External Rotation at 45 degrees 60 Abduction Internal Rotation 20 Comments Flexion at end of treatment: 117 deg's. Right Active Shoulder ROM WFL No Testing Position Standing Flexion 110 PT-OP-L Special Tests Start: 12/23/22 18:18 Freq: Status: Active Protocol: Document 12/27/22 15:34 LRN (Rec: 12/27/22 17:10 LRN [id number]) Special Tests Cervical Spine Special Tests Upper Limb Tension Test Test Results + Median nerve Traction Test Results + Comments Decreased R lateral shoulder discomfort Foraminal Compression Test Results - Spurling's Test Test Results - bilaterally Shoulder Special Tests Belly Press Test Results - R shoulder Comments Discomfort of R shoulder, no pain. IR/Horizontal ADD Impingement Test Results + R shoulder Comments Pain with IR shoulder Elevation Impingement Test Results + R shoulder Comments Pain PT-OP-M Strength Start: 12/23/22 18:18 Freq: Status: Active Protocol: Document 12/27/22 15:34 LRN (Rec: 12/27/22 17:10 LRN [id number]) Shoulder Strength Shoulder Manual Muscle Testing Right Flexion 4 Good Abduction (C5) 4 Good External Rotation 3 Fair Internal Rotation 5 Normal Comments Pain with MMT. Left Flexion 5 Normal Abduction (C5) 5 Normal External Rotation 5 Normal Internal Rotation 5 Normal PT-OP-Q Treatments Start: 12/23/22 18:18 Freq: Status: Active Protocol: Document 01/10/23 13:02 LRN (Rec: 01/10/23 13:46 LRN [id number]) Therapeutic Exercises Supine Exercises Scapular retraction Supine Exercise Name Scap pinches Reps/Minutes 15x Comments Phys cuing Scap protraction Supine Exercise Name Chest Press + Side bilateral Reps/Minutes 15x Comments Extra time taken to max proper mvmt. Prone Exercises Scap retract Prone Exercise Name Scap retract after STM Side bilateral Reps/Minutes 10x Sidelying Exercises T/S rot Sidelying Exercise Name I/S in HEP: Open Book Stretch Side bilateral Reps/Minutes 15x End-range 1 breath hold Comments Extra time for training of proper movement to not stretch anter shoulder jt Standing Exercises Scap depression Standing Exercise Name Scap depression Side right Scap retract Standing Exercise Name Scap retract Side bilateral Equipment Used Lev 1 holding TB Reps/Minutes 15x 2 R shdr IR Standing Exercise Name IR strengthening - alternating with ER Side right Equipment Used Lev 1 TB Reps/Minutes 10x 3 Comments Discomfort w/motion resolved w /correction of posture & keepingelbow planted R shdr ER Standing Exercise Name ER strengthening - alternating with IR Side right Equipment Used Lev 1 TB Reps/Minutes 10x 3 Comments No pain Manual Therapy Treatment Joint Mobilizations T/S Joint T2-T3 Direction PA, rot Grade II Body Position Prone Reps/Duration 3' Self-Care/Home Management Treatment Education Patient Education Home Exercise Program,Pain Management Other Education Educated pt in use of RICE program for pain management. Activities Self-Care/Home Management Activities Issued & reviewed HEP: Open book ex. PT-OP-R Modalities Start: 12/23/22 18:18 Freq: Status: Active Protocol: Document 01/05/23 14:36 LRN (Rec: 01/05/23 16:52 LRN [id number]) Hot Pack/Cold Pack Treatment Cold Pack Location R shoulder Patient Position Hooklying Treatment Duration (minutes) 10 Patient Tolerance Good Comments Pt unable to do cryotherapy at home. PT-OP-T Assessment and Plan Start: 12/23/22 18:18 Freq: Status: Active Protocol: Document 01/10/23 13:02 LRN (Rec: 01/10/23 13:46 LRN [id number]) Physical Therapy Assessment Goals Three Impairment Decreased R shoulder strength Short Term Goal (STG) Pt will be able to lift his R arm overhead without having to use the L arm to assist and without pain. 12/29/22: Pt able to lift L arm >90 deg's w/o L arm assist, WITH R shoulder pain. 01/03/23: R shoulder ROM equal to L shoulder w/o pain at end of treatment. STG Duration 02/10/23 (01/03/23: MET GOAL) Custodial Goal (LTG) Improve R shoulder strength with pt able to put his coat on without pain. LTG Duration 03/27/23 Two Impairment Decreased R shoulder AROM Custodial Goal (LTG) Improve R shoulder AROM to 155 deg's with pt able to reach overhead without pain. LTG Duration 03/27/23 One Impairment Lacks appropriate self care HEP. Short Term Goal (STG) Pt will be educated in use of cold pack for pain management and in proper posturing. 01/05/23: Pt educated in proper posture sitting and standing. 01/10/23: Pt educated in use of cold pack for pain management (RICE program). STG Duration 02/10/23 progressed 01/05/23 Custodial Goal (LTG) Pt will be independent with a self care HEP of R shoulder ROM and RC strengthening exercise. 12/27/22: HEP: Sitting shdr ER /IR 12/29/22: HEP: Sitting FF stretch-table slide, standing FF wall slide & scap pinch/ depression. 01/05/23: I/S HEP: Open book stretch. 01/10/23: HEP: Open book stretch. LTG Duration 03/27/23 progressed 01/10/23 Assessment Summary Assessment +impingement with limited active R shoulder ROM and decreased strength. Notable Scapular winging present with shdr flex wall slides. Pt has impingement pt with R shoulder IR as pt moves into increased shoulder rounding. Pt self corrected fwd rolled shoulders directed to proper posturing; therefore pt is aware of proper posturing. Physical Therapy Plan Frequency and Duration Frequency of Treatment 2x/Week Plan of Care Start Date 12/27/22 Plan of Care End Date 03/27/23 Next Visit Focus/Plan Next Note Type Treatment Note Next Visit Plan End with CP (per pt request). Review: open book stretch & educate/issue RICE self care for pain management. Review: R shoulder PROM-HEP issued, and progress ROM ex's and RC strengthening. Manual: STM to R Deltoid; Cont stretch R anterior pecs and RC; JMT of T/S & ?GHJ Exercises: R RC, T/S extension, Pec stretch. Modalities: US, K-tape, CP
--- NOTE | 2023-01-13 16:24 | PT.OTN ---
Current Diagnoses Pain in right shoulder (01/13/23) Physical Therapy Treatment Note PT-OP-A Visit Information Start: 12/23/22 18:18 Freq: Status: Active Protocol: Document 01/13/23 15:17 LRN (Rec: 01/13/23 16:19 LRN [id number]) Out-Patient Physical Therapy Visit Information Visit Information Visit Type Treatment Note Visit Note PT only Visit Start Time 15:17 Visit Stop Time 16:07 Total Visit Minutes 50 Visit Number 04/10 to start Evaluation Information Evaluation Date 12/27/22 Precautions Precautions Controlled HBP, history of back pain, Ablation x 2 to control A.Fib (last time last year), Memory changes. PT-OP-B Current Condition Start: 12/23/22 18:18 Freq: Status: Active Protocol: Document 12/27/22 15:34 LRN (Rec: 12/27/22 17:10 LRN [id number]) Current Condition History of Current Condition Onset Date 2 months ago Current Complaints R shoulder History of Current Condition Insidous onset. Became gradually harder to raise his arm to put on a coat. Not as bad as it used to be a month ago. 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 Prior Treatments and Tests Dr. Vincent did physical exam. Developmental History Developmental History Few years ago did therapy for back. Treatment Goals Patient/Caregiver Goals Pt goal is to be able to reach up for things and put on his coat w/o pain and w/o his opposite arm helping. 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 PT-OP-C Subjective Start: 12/23/22 18:18 Freq: Status: Active Protocol: Document 01/13/23 15:17 LRN (Rec: 01/13/23 16:19 LRN [id number]) OP-PT Subjective Patient Comments Patient Comments Last session he feels the pressure on spine treatment helped with the pain. PT-OP-H Neuro Start: 12/23/22 18:18 Freq: Status: Active Protocol: Document 12/27/22 15:34 LRN (Rec: 12/27/22 17:10 LRN [id number]) Sensation Evaluation Gross Sensation Gross Sensation WNL Deep Tendon Reflex & Clonus Assessment Deep Tendon Reflex Left Tricep Deep Tendon Reflex 2+ Normal Right Tricep Deep Tendon Reflex 1+ Diminished Bilateral Brachioradialis Deep Tendon Reflex 2+ Normal Bilateral Bicep Deep Tendon Reflex 2+ Normal PT-OP-J Posture/Palpation/Skin Start: 12/23/22 18:18 Freq: Status: Active Protocol: Document 12/27/22 15:34 LRN (Rec: 12/27/22 17:10 LRN [id number]) Posture Evaluation Position Standing Head/C-Spine Posture Forward Head T-Spine Posture Increased Kyphosis Shoulder Posture (L) Rounded,(R) Rounded,(L) Forward,(R) Forward,(R) Elevated Scapula Posture (R) Retracted,(R) Rotated Down Arm Posture (L) Internally Rotated,(R) Internally Rotated Comments Posture Comments Mild IR of arms. C-curve of spine with apex on left at T12 Palpation Assessment Location R Infraspinatus Palpation Location R Infraspinatus Palpation Details Decreased ms tone. R shoulder Palpation Location RC attachments at R humeral head, and lateral Deltoid Palpation Findings Tenderness PT-OP-K Range of Motion Start: 12/23/22 18:18 Freq: Status: Active Protocol: Document 12/29/22 15:14 LRN (Rec: 12/29/22 16:23 LRN [id number]) Shoulder Goniometric Range of Motion Shoulder Left Passive Shoulder ROM WFL Yes Testing Position Supine Flexion 157 Abduction 160 External Rotation at 45 degrees 85 Abduction Internal Rotation 30 Right Passive Shoulder ROM WFL No Testing Position Supine Flexion 100 Abduction 65 External Rotation at 45 degrees 60 Abduction Internal Rotation 20 Comments Flexion at end of treatment: 117 deg's. Right Active Shoulder ROM WFL No Testing Position Standing Flexion 110 PT-OP-L Special Tests Start: 12/23/22 18:18 Freq: Status: Active Protocol: Document 12/27/22 15:34 LRN (Rec: 12/27/22 17:10 LRN [id number]) Special Tests Cervical Spine Special Tests Upper Limb Tension Test Test Results + Median nerve Traction Test Results + Comments Decreased R lateral shoulder discomfort Foraminal Compression Test Results - Spurling's Test Test Results - bilaterally Shoulder Special Tests Belly Press Test Results - R shoulder Comments Discomfort of R shoulder, no pain. IR/Horizontal ADD Impingement Test Results + R shoulder Comments Pain with IR shoulder Elevation Impingement Test Results + R shoulder Comments Pain PT-OP-M Strength Start: 12/23/22 18:18 Freq: Status: Active Protocol: Document 12/27/22 15:34 LRN (Rec: 12/27/22 17:10 LRN [id number]) Shoulder Strength Shoulder Manual Muscle Testing Right Flexion 4 Good Abduction (C5) 4 Good External Rotation 3 Fair Internal Rotation 5 Normal Comments Pain with MMT. Left Flexion 5 Normal Abduction (C5) 5 Normal External Rotation 5 Normal Internal Rotation 5 Normal PT-OP-Q Treatments Start: 12/23/22 18:18 Freq: Status: Active Protocol: Document 01/13/23 15:17 LRN (Rec: 01/13/23 16:19 LRN [id number]) Cardio Equipment Upper Body Ergometer (UBE) Duration (Minutes) 6 RPM 80 Seat Position 13 Height 3 Other Fwd/bkwd motion. Much cuing with bkwd motion Therapeutic Exercises Sitting Exercises Postural awareness training Sitting Exercise Name Use of green back support and towel roll to create proper posturing in sitt Reps/Minutes 8' Standing Exercises Scap retract Standing Exercise Name Scap retract/depression Side bilateral Equipment Used Lev 1 holding TB Reps/Minutes 15x 2 R shdr IR Standing Exercise Name IR strengthening - alternating with ER Side right Equipment Used Lev 1 TB Reps/Minutes 15x 2 Comments Discomfort w/motion resolved w /correction of posture & keepingelbow planted R shdr ER Standing Exercise Name ER strengthening - alternating with IR Side right Equipment Used Lev 1 TB Reps/Minutes 15x 2 Comments No pain Manual Therapy Treatment Joint Mobilizations T/S Joint T2-T12 Direction PA, rot Grade II Body Position Prone Reps/Duration 12' Self-Care/Home Management Treatment Education Patient Education Home Exercise Program Activities Self-Care/Home Management Activities Issued & reviewed HEP: saulo Calles ER/IR with TBand. Lev 1 TB issued. PT-OP-R Modalities Start: 12/23/22 18:18 Freq: Status: Active Protocol: Document 01/13/23 15:17 LRN (Rec: 01/13/23 16:19 LRN [id number]) Hot Pack/Cold Pack Treatment Cold Pack Location R shoulder Patient Position Hooklying Treatment Duration (minutes) 10 Patient Tolerance Good Comments Pt unable to do cryotherapy at home. PT-OP-T Assessment and Plan Start: 12/23/22 18:18 Freq: Status: Active Protocol: Document 01/13/23 15:17 LRN (Rec: 01/13/23 16:19 LRN [id number]) Physical Therapy Assessment Goals Three Impairment Decreased R shoulder strength Short Term Goal (STG) Pt will be able to lift his R arm overhead without having to use the L arm to assist and without pain. 12/29/22: Pt able to lift L arm >90 deg's w/o L arm assist, WITH R shoulder pain. 01/03/23: R shoulder ROM equal to L shoulder w/o pain at end of treatment. STG Duration 02/10/23 (01/03/23: MET GOAL) Assembly Hand Goal (LTG) Improve R shoulder strength with pt able to put his coat on without pain. LTG Duration 03/27/23 Two Impairment Decreased R shoulder AROM Skilled Nursing Goal (LTG) Improve R shoulder AROM to 155 deg's with pt able to reach overhead without pain. LTG Duration 03/27/23 One Impairment Lacks appropriate self care HEP. Short Term Goal (STG) Pt will be educated in use of cold pack for pain management and in proper posturing. 01/05/23: Pt educated in proper posture sitting and standing. 01/10/23: Pt educated in use of cold pack for pain management (RICE program). STG Duration 02/10/23 progressed 01/10/23 Skilled Nursing Goal (LTG) Pt will be independent with a self care HEP of R shoulder ROM and RC strengthening exercise. 12/27/22: HEP: Sitting shdr ER /IR 12/29/22: HEP: Sitting FF stretch-table slide, standing FF wall slide & scap pinch/ depression. 01/05/23: I/S HEP: Open book stretch. 01/10/23: HEP: Open book stretch. 01/13/23: HEP: TBand scap retract (row), shldr ER/IR strengthening. LTG Duration 03/27/23 progressed 01/13/23 Assessment Summary Assessment +impingement with limited active R shoulder ROM and decreased strength. First time pt able to position scapula in proper standing posture with cuing at chest, to lift chest. Postural awareness improving. Pt demonstrates R RC dysfunction with R shoulder hike on flexion. Physical Therapy Plan Frequency and Duration Frequency of Treatment 2x/Week Plan of Care Start Date 12/27/22 Plan of Care End Date 03/27/23 Next Visit Focus/Plan Next Note Type Treatment Note Next Visit Plan End with CP (per pt request). Recheck R shoulder painfree AROM and pain rating. Review: open book stretch. Review: R RC strengthening from HEP issued (row, ER, IR). Add: R shoulder PROM with wall slide/?cane ex's, and RC (lat pull down, shoulder depression) strengthening. Manual: STM to R Deltoid; Stretch R anterior pecs and RC ; JMT of T/S & ?GHJ. Add Exercises: T/S extension, Pec stretch. Modalities: if needed US, K- tape.
--- NOTE | 2023-01-17 16:47 | PT.OTN ---
Current Diagnoses Pain in right shoulder (01/17/23) Physical Therapy Treatment Note PT-OP-A Visit Information Start: 12/23/22 18:18 Freq: Status: Active Protocol: Document 01/17/23 14:38 LRN (Rec: 01/17/23 15:21 LRN [id number]) Out-Patient Physical Therapy Visit Information Visit Information Visit Type Treatment Note Visit Note PT only Visit Start Time 14:38 Visit Stop Time 15:26 Total Visit Minutes 48 Visit Number 05/10 to start Evaluation Information Evaluation Date 12/27/22 Precautions Precautions Controlled HBP, history of back pain, Ablation x 2 to control A.Fib (last time last year), Memory changes. PT-OP-B Current Condition Start: 12/23/22 18:18 Freq: Status: Active Protocol: Document 12/27/22 15:34 LRN (Rec: 12/27/22 17:10 LRN [id number]) Current Condition History of Current Condition Onset Date 2 months ago Current Complaints R shoulder History of Current Condition Insidous onset. Became gradually harder to raise his arm to put on a coat. Not as bad as it used to be a month ago. 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 Prior Treatments and Tests Dr. Vincent did physical exam. Developmental History Developmental History Few years ago did therapy for back. Treatment Goals Patient/Caregiver Goals Pt goal is to be able to reach up for things and put on his coat w/o pain and w/o his opposite arm helping. 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 PT-OP-C Subjective Start: 12/23/22 18:18 Freq: Status: Active Protocol: Document 01/17/23 14:38 LRN (Rec: 01/17/23 15:21 LRN [id number]) OP-PT Subjective Patient Comments Patient Comments In general, moving easier with less pain, but last night reached up and had excruciating R shoulder pain. Now, no pain at rest, 2/10 when lifting arm. PT-OP-H Neuro Start: 12/23/22 18:18 Freq: Status: Active Protocol: Document 12/27/22 15:34 LRN (Rec: 12/27/22 17:10 LRN [id number]) Sensation Evaluation Gross Sensation Gross Sensation WNL Deep Tendon Reflex & Clonus Assessment Deep Tendon Reflex Left Tricep Deep Tendon Reflex 2+ Normal Right Tricep Deep Tendon Reflex 1+ Diminished Bilateral Brachioradialis Deep Tendon Reflex 2+ Normal Bilateral Bicep Deep Tendon Reflex 2+ Normal PT-OP-J Posture/Palpation/Skin Start: 12/23/22 18:18 Freq: Status: Active Protocol: Document 12/27/22 15:34 LRN (Rec: 12/27/22 17:10 LRN [id number]) Posture Evaluation Position Standing Head/C-Spine Posture Forward Head T-Spine Posture Increased Kyphosis Shoulder Posture (L) Rounded,(R) Rounded,(L) Forward,(R) Forward,(R) Elevated Scapula Posture (R) Retracted,(R) Rotated Down Arm Posture (L) Internally Rotated,(R) Internally Rotated Comments Posture Comments Mild IR of arms. C-curve of spine with apex on left at T12 Palpation Assessment Location R Infraspinatus Palpation Location R Infraspinatus Palpation Details Decreased ms tone. R shoulder Palpation Location RC attachments at R humeral head, and lateral Deltoid Palpation Findings Tenderness PT-OP-K Range of Motion Start: 12/23/22 18:18 Freq: Status: Active Protocol: Document 01/17/23 14:38 LRN (Rec: 01/17/23 15:21 LRN [id number]) Shoulder Goniometric Range of Motion Shoulder Left Active Testing Position Standing Flexion 138 Extension 40 Abduction 100 External Rotation at 0 degrees Abduction 72 Internal Rotation Behind Back (text) T8 Comments Reaching Behind head: T2 Right Active Shoulder ROM WFL No Testing Position Standing Flexion 115 Extension 40 Abduction 83 External Rotation at 0 degrees Abduction 72 Internal Rotation Behind Back (text) L3 Comments Reaching Behind head: C7 PT-OP-L Special Tests Start: 12/23/22 18:18 Freq: Status: Active Protocol: Document 12/27/22 15:34 LRN (Rec: 12/27/22 17:10 LRN [id number]) Special Tests Cervical Spine Special Tests Upper Limb Tension Test Test Results + Median nerve Traction Test Results + Comments Decreased R lateral shoulder discomfort Foraminal Compression Test Results - Spurling's Test Test Results - bilaterally Shoulder Special Tests Belly Press Test Results - R shoulder Comments Discomfort of R shoulder, no pain. IR/Horizontal ADD Impingement Test Results + R shoulder Comments Pain with IR shoulder Elevation Impingement Test Results + R shoulder Comments Pain PT-OP-M Strength Start: 12/23/22 18:18 Freq: Status: Active Protocol: Document 12/27/22 15:34 LRN (Rec: 12/27/22 17:10 LRN [id number]) Shoulder Strength Shoulder Manual Muscle Testing Right Flexion 4 Good Abduction (C5) 4 Good External Rotation 3 Fair Internal Rotation 5 Normal Comments Pain with MMT. Left Flexion 5 Normal Abduction (C5) 5 Normal External Rotation 5 Normal Internal Rotation 5 Normal PT-OP-Q Treatments Start: 12/23/22 18:18 Freq: Status: Active Protocol: Document 01/17/23 14:38 LRN (Rec: 01/17/23 15:21 LRN [id number]) Cardio Equipment Upper Body Ergometer (UBE) Duration (Minutes) 7 RPM 80 Seat Position 13 Height 3 Other Fwd/bkwd motion. Much cuing with bkwd motion Therapeutic Exercises Prone Exercises Scap retract Prone Exercise Name BRIAN Reps/Minutes 8x Comments cuing needed to ext at T3-T6 and scap retract Sidelying Exercises T/S rot Sidelying Exercise Name I/S in HEP: Open Book Stretch Side bilateral Reps/Minutes 15x End-range 1 breath hold Comments Extra time for training of proper movement to not stretch anter shoulder jt Standing Exercises Shoulder AROM Standing Exercise Name Shoulder AROM (flex, AB, ER, IR) Side bilateral Reps/Minutes 13' Comments AROM taken Manual Therapy Treatment Joint Mobilizations T/S Joint T2-T12 Direction PA, rot Grade II Body Position Prone Reps/Duration 12' Self-Care/Home Management Treatment Education Other Education During UBE: Pt education scapulohumeral anatomy with discussion of importance of scapulothoracic posturing to avoid R shoulder impingement pain. PT-OP-R Modalities Start: 12/23/22 18:18 Freq: Status: Active Protocol: Document 01/17/23 14:38 LRN (Rec: 01/17/23 15:21 LRN [id number]) Hot Pack/Cold Pack Treatment Cold Pack Location R shoulder Patient Position Hooklying Treatment Duration (minutes) 10 Patient Tolerance Good Comments Pt unable to do cryotherapy at home. PT-OP-T Assessment and Plan Start: 12/23/22 18:18 Freq: Status: Active Protocol: Document 01/17/23 14:38 LRN (Rec: 01/17/23 15:21 LRN [id number]) Physical Therapy Assessment Goals Three Impairment Decreased R shoulder strength Short Term Goal (STG) Pt will be able to lift his R arm overhead without having to use the L arm to assist and without pain. 12/29/22: Pt able to lift L arm >90 deg's w/o L arm assist, WITH R shoulder pain. 01/03/23: R shoulder ROM equal to L shoulder w/o pain at end of treatment. STG Duration 02/10/23 (01/03/23: MET GOAL) [facility] Goal (LTG) Improve R shoulder strength with pt able to put his coat on without pain. LTG Duration 03/27/23 Two Impairment Decreased R shoulder AROM Impairment 12/27/22: R shoulder AROM (deg 's) in standing: Flex 90, AB 52, ER at 0 deg's AB is 64, IR behind back L3, behind head - not able to reach side of head w/o pain. (L shoulder is flex 155, AB 170, ER at 0 deg 's AB is 64 deg's, IR behind back T8, ER behind head - T2). [facility] Goal (LTG) Improve R shoulder AROM to 155 deg's with pt able to reach overhead without pain. 01/17/23: R shoulder AROM in standing: flex is 115 deg's, AB 83 deg's, ER at 0 deg's AB is 72 deg's, IR behind back is L3, ER behind head is C7. LTG Duration 03/27/23 progressing 01/17/23 One Impairment Lacks appropriate self care HEP. Short Term Goal (STG) Pt will be educated in use of cold pack for pain management and in proper posturing. 01/05/23: Pt educated in proper posture sitting and standing. 01/10/23: Pt educated in use of cold pack for pain management (RICE program). STG Duration 02/10/23 progressed 01/10/23 [facility] Goal (LTG) Pt will be independent with a self care HEP of R shoulder ROM and RC strengthening exercise. 12/27/22: HEP: Sitting shdr ER /IR 12/29/22: HEP: Sitting FF stretch-table slide, standing FF wall slide & scap pinch/ depression. 01/05/23: I/S HEP: Open book stretch. 01/10/23: HEP: Open book stretch. 01/13/23: HEP: TBand scap retract (row), shldr ER/IR strengthening. LTG Duration 03/27/23 progressed 01/13/23 Assessment Summary Assessment Pt R shoulder AROM in standing has improved: flex 90 to 115 deg's, AB 52 to 83 deg's, ER @ 0 deg's AB is 64 to 72 deg's, and reaching behind head, from not able to C7. 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 Pt says he is doing open book ex at home, but needs cuing and instructions to perform while in clinic; therefore will try review again next visit. Physical Therapy Plan Frequency and Duration Frequency of Treatment 2x/Week Plan of Care Start Date 12/27/22 Plan of Care End Date 03/27/23 Next Visit Focus/Plan Next Note Type Treatment Note Next Visit Plan End with CP (per pt request). Educate/review: proper posturing (STG # 1) Review: open book stretch one more time. Review: R RC strengthening from HEP issued (row, ER, IR). Add: R shoulder ROM/PROM with wall slide/?cane ex's, and RC (lat pull down, shoulder depression) strengthening & Add Exercises: T/S extension, Pec stretch. Manual: MWM for R shoulder painfree ROM. Cont STM to Stretch R anterior pecs and RC ; JMT of T/S & ?GHJ. Modalities: if needed US, K- tape.
--- NOTE | 2023-01-20 16:21 | PT.OTN ---
Current Diagnoses Pain in right shoulder (01/20/23) Physical Therapy Treatment Note PT-OP-A Visit Information Start: 12/23/22 18:18 Freq: Status: Active Protocol: Document 01/20/23 15:19 LRN (Rec: 01/20/23 16:20 LRN [id number]) Out-Patient Physical Therapy Visit Information Visit Information Visit Type Treatment Note Visit Note PT only Visit Start Time 15:19 Visit Stop Time 16:11 Total Visit Minutes 52 Visit Number 8 to start Evaluation Information Evaluation Date 12/27/22 Precautions Precautions Controlled HBP, history of back pain, Ablation x 2 to control A.Fib (last time last year), Memory changes. PT-OP-B Current Condition Start: 12/23/22 18:18 Freq: Status: Active Protocol: Document 12/27/22 15:34 LRN (Rec: 12/27/22 17:10 LRN [id number]) Current Condition History of Current Condition Onset Date 2 months ago Current Complaints R shoulder History of Current Condition Insidous onset. Became gradually harder to raise his arm to put on a coat. Not as bad as it used to be a month ago. 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 Prior Treatments and Tests Dr. Vincent did physical exam. Developmental History Developmental History Few years ago did therapy for back. Treatment Goals Patient/Caregiver Goals Pt goal is to be able to reach up for things and put on his coat w/o pain and w/o his opposite arm helping. 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 PT-OP-C Subjective Start: 12/23/22 18:18 Freq: Status: Active Protocol: Document 01/20/23 15:19 LRN (Rec: 01/20/23 16:20 LRN [id number]) OP-PT Subjective Patient Comments Patient Comments States his R shoulder pain is in a specific location ( anterior shoulder). He has generally less pain reaching overhead, but when it hits it is very severe. PT-OP-H Neuro Start: 12/23/22 18:18 Freq: Status: Active Protocol: Document 12/27/22 15:34 LRN (Rec: 12/27/22 17:10 LRN [id number]) Sensation Evaluation Gross Sensation Gross Sensation WNL Deep Tendon Reflex & Clonus Assessment Deep Tendon Reflex Left Tricep Deep Tendon Reflex 2+ Normal Right Tricep Deep Tendon Reflex 1+ Diminished Bilateral Brachioradialis Deep Tendon Reflex 2+ Normal Bilateral Bicep Deep Tendon Reflex 2+ Normal PT-OP-J Posture/Palpation/Skin Start: 12/23/22 18:18 Freq: Status: Active Protocol: Document 12/27/22 15:34 LRN (Rec: 12/27/22 17:10 LRN [id number]) Posture Evaluation Position Standing Head/C-Spine Posture Forward Head T-Spine Posture Increased Kyphosis Shoulder Posture (L) Rounded,(R) Rounded,(L) Forward,(R) Forward,(R) Elevated Scapula Posture (R) Retracted,(R) Rotated Down Arm Posture (L) Internally Rotated,(R) Internally Rotated Comments Posture Comments Mild IR of arms. C-curve of spine with apex on left at T12 Palpation Assessment Location R Infraspinatus Palpation Location R Infraspinatus Palpation Details Decreased ms tone. R shoulder Palpation Location RC attachments at R humeral head, and lateral Deltoid Palpation Findings Tenderness PT-OP-K Range of Motion Start: 12/23/22 18:18 Freq: Status: Active Protocol: Document 01/17/23 14:38 LRN (Rec: 01/17/23 15:21 LRN [id number]) Shoulder Goniometric Range of Motion Shoulder Left Active Testing Position Standing Flexion 138 Extension 40 Abduction 100 External Rotation at 0 degrees Abduction 72 Internal Rotation Behind Back (text) T8 Comments Reaching Behind head: T2 Right Active Shoulder ROM WFL No Testing Position Standing Flexion 115 Extension 40 Abduction 83 External Rotation at 0 degrees Abduction 72 Internal Rotation Behind Back (text) L3 Comments Reaching Behind head: C7 PT-OP-L Special Tests Start: 12/23/22 18:18 Freq: Status: Active Protocol: Document 12/27/22 15:34 LRN (Rec: 12/27/22 17:10 LRN [id number]) Special Tests Cervical Spine Special Tests Upper Limb Tension Test Test Results + Median nerve Traction Test Results + Comments Decreased R lateral shoulder discomfort Foraminal Compression Test Results - Spurling's Test Test Results - bilaterally Shoulder Special Tests Belly Press Test Results - R shoulder Comments Discomfort of R shoulder, no pain. IR/Horizontal ADD Impingement Test Results + R shoulder Comments Pain with IR shoulder Elevation Impingement Test Results + R shoulder Comments Pain PT-OP-M Strength Start: 12/23/22 18:18 Freq: Status: Active Protocol: Document 12/27/22 15:34 LRN (Rec: 12/27/22 17:10 LRN [id number]) Shoulder Strength Shoulder Manual Muscle Testing Right Flexion 4 Good Abduction (C5) 4 Good External Rotation 3 Fair Internal Rotation 5 Normal Comments Pain with MMT. Left Flexion 5 Normal Abduction (C5) 5 Normal External Rotation 5 Normal Internal Rotation 5 Normal PT-OP-Q Treatments Start: 12/23/22 18:18 Freq: Status: Active Protocol: Document 01/20/23 15:19 LRN (Rec: 01/20/23 16:20 LRN [id number]) Cardio Equipment Upper Body Ergometer (UBE) Duration (Minutes) 8 RPM 80 Seat Position 13 Height 3 Other Fwd/bkwd motion. Much cuing with bkwd motion Therapeutic Exercises Supine Exercises Neck Elongation Supine Exercise Name Neck Elongation Reps/Minutes 2' Lat Pull down Supine Exercise Name Scap retract/depression Side bilateral Equipment Used Cane, L2 TB Reps/Minutes 15x 2 Scapular retraction Supine Exercise Name Shoulder ER with scap retract Side bilateral Equipment Used Lev 2 TB Reps/Minutes 15x 2 Sitting Exercises Elbow Ext Sitting Exercise Name Elbow Extension strengthening Side left Equipment Used L2 Reps/Minutes 10x 3 Comments Extra time taken to determin max tolerated tension and best positioning Elbow Flexion Sitting Exercise Name Elbow Flexion strengthening Side right Equipment Used L2 Reps/Minutes 10x 3 Comments Extra time taken to determin max tolerated tension and best positioning Standing Exercises Postural training Standing Exercise Name Postural training for head/ neck/shoulders Reps/Minutes 8' Comments Cuing to top of head and phys cuing to R shoulder for retarder operator rotation Self-Care/Home Management Treatment Education Other Education Pt education in cervical anatomy with use of model and effects of muscular changes of posture on nervous system and R shoulder pain. Pt educated in sleeping posturing bilateral sidelie ( off shoulder in R sidelie and hugging a pillow in L sidelie) , when reading, in supine, and including head/neck positioning. Activities Self-Care/Home Management Activities Pt I/S to focus on reposturing head/neck at nighttime before sleep. PT-OP-R Modalities Start: 12/23/22 18:18 Freq: Status: Active Protocol: Document 01/20/23 15:19 LRN (Rec: 01/20/23 16:20 LRN [id number]) Hot Pack/Cold Pack Treatment Cold Pack Location R shoulder Patient Position Hooklying Treatment Duration (minutes) 10 Patient Tolerance Good Comments Pt unable to do cryotherapy at home. PT-OP-T Assessment and Plan Start: 12/23/22 18:18 Freq: Status: Active Protocol: Document 01/20/23 15:19 LRN (Rec: 01/20/23 16:20 LRN [id number]) Physical Therapy Assessment Goals Three Impairment Decreased R shoulder strength Short Term Goal (STG) Pt will be able to lift his R arm overhead without having to use the L arm to assist and without pain. 12/29/22: Pt able to lift L arm >90 deg's w/o L arm assist, WITH R shoulder pain. 01/03/23: R shoulder ROM equal to L shoulder w/o pain at end of treatment. STG Duration 02/10/23 (01/03/23: MET GOAL) Group Home Goal (LTG) Improve R shoulder strength with pt able to put his coat on without pain. LTG Duration 03/27/23 Two Impairment Decreased R shoulder AROM Impairment 12/27/22: R shoulder AROM (deg 's) in standing: Flex 90, AB 52, ER at 0 deg's AB is 64, IR behind back L3, behind head - not able to reach side of head w/o pain. (L shoulder is flex 155, AB 170, ER at 0 deg 's AB is 64 deg's, IR behind back T8, ER behind head - T2). Group Home Goal (LTG) Improve R shoulder AROM to 155 deg's with pt able to reach overhead without pain. 01/17/23: R shoulder AROM in standing: flex is 115 deg's, AB 83 deg's, ER at 0 deg's AB is 72 deg's, IR behind back is L3, ER behind head is C7. LTG Duration 03/27/23 progressing 01/17/23 One Impairment Lacks appropriate self care HEP. Short Term Goal (STG) Pt will be educated in use of cold pack for pain management and in proper posturing. 01/05/23: Pt educated in proper posture sitting and standing. 01/10/23: Pt educated in use of cold pack for pain management (RICE program). 01/20/23: Pt educated in proper standing, and sleeping positions (sidelie bilaterally and supine), used anatomy model for education. STG Duration 02/10/23 (01/20/23: MET GOAL ) Group Home Goal (LTG) Pt will be independent with a self care HEP of R shoulder ROM and RC strengthening exercise. 12/27/22: HEP: Sitting shdr ER /IR 12/29/22: HEP: Sitting FF stretch-table slide, standing FF wall slide & scap pinch/ depression. 01/05/23: I/S HEP: Open book stretch. 01/10/23: HEP: Open book stretch. 01/13/23: HEP: TBand scap retract (row), shldr ER/IR strengthening. 01/20/23: I/S pt in: Neck elongation for proper posturing in all positions and especially prior to sleeping. LTG Duration 03/27/23 progressed 01/20/23 Assessment Summary Assessment R shoulder impingement symptom not present today, he has instead R anterior shoulder pain that appears to be cervical related. Able to elimnate anterior shoulder pain in standing with improved head on shoulders posturing ( neck elongation and R shoulder retarder operator rot). Pt reports trying to do his ex's as frequently as possible. Physical Therapy Plan Frequency and Duration Frequency of Treatment 2x/Week Plan of Care Start Date 12/27/22 Plan of Care End Date 03/27/23 Next Visit Focus/Plan Next Note Type Treatment Note Next Visit Plan End with CP (per pt request). Review/issue HEP: Neck elongation and proper posturing. Assess response to proper posturing nighttime. Review: open book stretch one more time. Review: R RC strengthening from HEP issued (row, ER, IR). Try: R shoulder ROM/PROM with wall slide w/neck elongation. Add to HEP: RC (lat pull down , shoulder depression) strengthening & T/S extension, Pec stretch. Manual: MWM (R shoulder posterior rot w/flex) for R anter shoulder painfree ROM. Cont STM to Stretch R anterior pecs and RC; JMT of T/S. Modalities: if needed US, K- tape.
--- NOTE | 2023-02-03 17:43 | PT.OTN ---
Current Diagnoses Pain in right shoulder (02/03/23) Physical Therapy Treatment Note PT-OP-A Visit Information Start: 12/23/22 18:18 Freq: Status: Active Protocol: Document 02/03/23 13:02 LRN (Rec: 02/03/23 13:49 LRN [id number]) Out-Patient Physical Therapy Visit Information Visit Information Visit Type Treatment Note Visit Note PT only Visit Start Time 13:02 Visit Stop Time 13:58 Total Visit Minutes 56 Visit Number 07/11 to start Evaluation Information Evaluation Date 12/27/22 Precautions Precautions Controlled HBP, history of back pain, Ablation x 2 to control A.Fib (last time last year), Memory changes. PT-OP-B Current Condition Start: 12/23/22 18:18 Freq: Status: Active Protocol: Document 12/27/22 15:34 LRN (Rec: 12/27/22 17:10 LRN [id number]) Current Condition History of Current Condition Onset Date 2 months ago Current Complaints R shoulder History of Current Condition Insidous onset. Became gradually harder to raise his arm to put on a coat. Not as bad as it used to be a month ago. 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 Prior Treatments and Tests Dr. Vincent did physical exam. Developmental History Developmental History Few years ago did therapy for back. Treatment Goals Patient/Caregiver Goals Pt goal is to be able to reach up for things and put on his coat w/o pain and w/o his opposite arm helping. 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 PT-OP-C Subjective Start: 12/23/22 18:18 Freq: Status: Active Protocol: Document 02/03/23 13:02 LRN (Rec: 02/03/23 13:49 LRN [id number]) OP-PT Subjective Patient Comments Patient Comments Lifted someone heavy and may have hurt R shoulder. Pain when getting up in the morning . Doesn't have time to do the ex's at home. PT-OP-H Neuro Start: 12/23/22 18:18 Freq: Status: Active Protocol: Document 12/27/22 15:34 LRN (Rec: 12/27/22 17:10 LRN [id number]) Sensation Evaluation Gross Sensation Gross Sensation WNL Deep Tendon Reflex & Clonus Assessment Deep Tendon Reflex Left Tricep Deep Tendon Reflex 2+ Normal Right Tricep Deep Tendon Reflex 1+ Diminished Bilateral Brachioradialis Deep Tendon Reflex 2+ Normal Bilateral Bicep Deep Tendon Reflex 2+ Normal PT-OP-J Posture/Palpation/Skin Start: 12/23/22 18:18 Freq: Status: Active Protocol: Document 12/27/22 15:34 LRN (Rec: 12/27/22 17:10 LRN [id number]) Posture Evaluation Position Standing Head/C-Spine Posture Forward Head T-Spine Posture Increased Kyphosis Shoulder Posture (L) Rounded,(R) Rounded,(L) Forward,(R) Forward,(R) Elevated Scapula Posture (R) Retracted,(R) Rotated Down Arm Posture (L) Internally Rotated,(R) Internally Rotated Comments Posture Comments Mild IR of arms. C-curve of spine with apex on left at T12 Palpation Assessment Location R Infraspinatus Palpation Location R Infraspinatus Palpation Details Decreased ms tone. R shoulder Palpation Location RC attachments at R humeral head, and lateral Deltoid Palpation Findings Tenderness PT-OP-K Range of Motion Start: 12/23/22 18:18 Freq: Status: Active Protocol: Document 02/03/23 13:02 LRN (Rec: 02/03/23 13:49 LRN [id number]) Shoulder Goniometric Range of Motion Shoulder Right Active Shoulder ROM WFL No Testing Position Standing Flexion 138 Extension 50 Abduction 83 External Rotation at 0 degrees Abduction 72 Internal Rotation Behind Back (text) L3 Comments Reaching Behind head: back of head PT-OP-L Special Tests Start: 12/23/22 18:18 Freq: Status: Active Protocol: Document 12/27/22 15:34 LRN (Rec: 12/27/22 17:10 LRN [id number]) Special Tests Cervical Spine Special Tests Upper Limb Tension Test Test Results + Median nerve Traction Test Results + Comments Decreased R lateral shoulder discomfort Foraminal Compression Test Results - Spurling's Test Test Results - bilaterally Shoulder Special Tests Belly Press Test Results - R shoulder Comments Discomfort of R shoulder, no pain. IR/Horizontal ADD Impingement Test Results + R shoulder Comments Pain with IR shoulder Elevation Impingement Test Results + R shoulder Comments Pain PT-OP-M Strength Start: 12/23/22 18:18 Freq: Status: Active Protocol: Document 12/27/22 15:34 LRN (Rec: 12/27/22 17:10 LRN [id number]) Shoulder Strength Shoulder Manual Muscle Testing Right Flexion 4 Good Abduction (C5) 4 Good External Rotation 3 Fair Internal Rotation 5 Normal Comments Pain with MMT. Left Flexion 5 Normal Abduction (C5) 5 Normal External Rotation 5 Normal Internal Rotation 5 Normal PT-OP-Q Treatments Start: 12/23/22 18:18 Freq: Status: Active Protocol: Document 02/03/23 13:02 LRN (Rec: 02/03/23 13:49 LRN [id number]) Cardio Equipment Upper Body Ergometer (UBE) Duration (Minutes) 9 RPM 80 Seat Position 13 Height 3 Other Bkwd motion to start due to pain fwd motion, then 4' fwd, end bkwd. Therapeutic Exercises Supine Exercises Neck Elongation Supine Exercise Name Neck Elongation Reps/Minutes 2' Lat Pull down Supine Exercise Name Scap retract/depression Side bilateral Equipment Used Cane, L2 TB Reps/Minutes 15x 2 Sitting Exercises Elbow Ext Sitting Exercise Name Elbow Extension strengthening Side left Equipment Used L2 Reps/Minutes 10x 3 Comments Extra time taken to determin max tolerated tension and best positioning Elbow Flexion Sitting Exercise Name Elbow Flexion strengthening Side right Equipment Used L2 Reps/Minutes 10x 3 Comments Extra time taken to determin max tolerated tension and best positioning Standing Exercises Scap retract Standing Exercise Name Scap retract/depression Side bilateral Equipment Used Lev 2 holding TB Reps/Minutes 15x 2 R shdr IR Standing Exercise Name IR strengthening - alternating with ER Side right Equipment Used Lev 1 TB Reps/Minutes 15x 2 Comments Discomfort end range R shdr ER Standing Exercise Name ER strengthening - alternating with IR Side right Equipment Used Lev 1 TB Reps/Minutes 15x 2 Comments No pain Other Exercises Mika Other Exercise Name Shoulder flex with strap for GHJ stab Side right Reps/Minutes 8' Comments Extra time taken set up of exercise. Painful with AROM. PT-OP-R Modalities Start: 12/23/22 18:18 Freq: Status: Active Protocol: Document 02/03/23 13:02 LRN (Rec: 02/03/23 13:49 LRN [id number]) Hot Pack/Cold Pack Treatment Cold Pack Location R shoulder Patient Position Hooklying Treatment Duration (minutes) 10 Patient Tolerance Good Comments Pt unable to do cryotherapy at home. PT-OP-T Assessment and Plan Start: 12/23/22 18:18 Freq: Status: Active Protocol: Document 02/03/23 13:02 LRN (Rec: 02/03/23 13:49 LRN [id number]) Physical Therapy Assessment Goals Three Impairment Decreased R shoulder strength Short Term Goal (STG) Pt will be able to lift his R arm overhead without having to use the L arm to assist and without pain. 12/29/22: Pt able to lift L arm >90 deg's w/o L arm assist, WITH R shoulder pain. 01/03/23: R shoulder ROM equal to L shoulder w/o pain at end of treatment. STG Duration 02/10/23 (01/03/23: MET GOAL) Case Technician Goal (LTG) Improve R shoulder strength with pt able to put his coat on without pain. LTG Duration 03/27/23 Two Impairment Decreased R shoulder AROM Impairment 12/27/22: R shoulder AROM (deg 's) in standing: Flex 90, AB 52, ER at 0 deg's AB is 64, IR behind back L3, behind head - not able to reach side of head w/o pain. (L shoulder is flex 155, AB 170, ER at 0 deg 's AB is 64 deg's, IR behind back T8, ER behind head - T2). Case Technician Goal (LTG) Improve R shoulder AROM to 155 deg's with pt able to reach overhead without pain. 01/17/23: R shoulder AROM in standing: flex is 115 deg's, AB 83 deg's, ER at 0 deg's AB is 72 deg's, IR behind back is L3, ER behind head is C7. LTG Duration 03/27/23 progressing 01/17/23 One Impairment Lacks appropriate self care HEP. Short Term Goal (STG) Pt will be educated in use of cold pack for pain management and in proper posturing. 01/05/23: Pt educated in proper posture sitting and standing. 01/10/23: Pt educated in use of cold pack for pain management (RICE program). 01/20/23: Pt educated in proper standing, and sleeping positions (sidelie bilaterally and supine), used anatomy model for education. STG Duration 02/10/23 (01/20/23: MET GOAL ) Case Technician Goal (LTG) Pt will be independent with a self care HEP of R shoulder ROM and RC strengthening exercise. 12/27/22: HEP: Sitting shdr ER /IR 12/29/22: HEP: Sitting FF stretch-table slide, standing FF wall slide & scap pinch/ depression. 01/05/23: I/S HEP: Open book stretch. 01/10/23: HEP: Open book stretch. 01/13/23: HEP: TBand scap retract (row), shldr ER/IR strengthening. 01/20/23: I/S pt in: Neck elongation for proper posturing in all positions and especially prior to sleeping. LTG Duration 03/27/23 progressed 01/20/23 Assessment Summary Assessment Pt suffered episode of sharp pain moving in bed last night, possibly from GHJ instability . He demonstrates R shoulder impingement, but pt is having pain with AROM, but no pain with PROM, indicating probable muscular dysfunction (?tear). Pt had pain with initial use of upper body manager client, but after 4' he was able to ex with his Normal R shoulder pain. 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 If pt has not improved in the next 2 weeks, then pt will need to return to the referring physician for further medical assessment for possible muscle tear of R rotator cuff. Physical Therapy Plan Frequency and Duration Frequency of Treatment 2x/Week Plan of Care Start Date 12/27/22 Plan of Care End Date 03/27/23 Next Visit Focus/Plan Next Note Type Treatment Note Next Visit Plan In 2 weeks if no significant improvement refer pt back to MD. End with CP (per pt request). Review/issue HEP: Neck elongation and proper posturing. Assess response to proper posturing nighttime. Review: open book stretch one more time. Review: R RC strengthening from HEP issued (row, ER, IR). Try: R shoulder ROM/PROM with wall slide w/neck elongation. Add to HEP: RC (lat pull down , shoulder depression) strengthening & T/S extension, Pec stretch. Manual: MWM (R shoulder posterior rot w/flex) for R anter shoulder painfree ROM. Cont STM to Stretch R anterior pecs and RC; JMT of T/S. Modalities: if needed US, K- tape.
--- NOTE | 2023-02-10 18:51 | PT.OTN ---
Current Diagnoses Pain in right shoulder (02/10/23) Physical Therapy Treatment Note PT-OP-A Visit Information Start: 12/23/22 18:18 Freq: Status: Active Protocol: Document 02/10/23 13:02 LRN (Rec: 02/10/23 13:50 LRN [id number]) Out-Patient Physical Therapy Visit Information Visit Information Visit Type Progress Note Visit Note PT only Visit Start Time 13:02 Visit Stop Time 13:49 Total Visit Minutes 47 Visit Number 08/10 to start Evaluation Information Evaluation Date 12/27/22 Precautions Precautions Controlled HBP, history of back pain, Ablation x 2 to control A.Fib (last time last year), Memory changes. PT-OP-B Current Condition Start: 12/23/22 18:18 Freq: Status: Active Protocol: Document 12/27/22 15:34 LRN (Rec: 12/27/22 17:10 LRN [id number]) Current Condition History of Current Condition Onset Date 2 months ago Current Complaints R shoulder History of Current Condition Insidous onset. Became gradually harder to raise his arm to put on a coat. Not as bad as it used to be a month ago. 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 Prior Treatments and Tests Dr. Vincent did physical exam. Developmental History Developmental History Few years ago did therapy for back. Treatment Goals Patient/Caregiver Goals Pt goal is to be able to reach up for things and put on his coat w/o pain and w/o his opposite arm helping. 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 PT-OP-C Subjective Start: 12/23/22 18:18 Freq: Status: Active Protocol: Document 02/10/23 13:02 LRN (Rec: 02/10/23 13:50 LRN [id number]) OP-PT Subjective Patient Comments Patient Comments States he thinks he is better and would like to go through his appts before going back to the doctor. Patient Questionnaires Quick Dash- Upper Extremity Quick Dash UE Score 20.45 Quick Dash UE Impairment 20 to 39% Impaired (Score 20- 39) OP-PT Pain Assessment Pain Assessment Grid Paper Pain Assessment Grid Completed Yes Location R shoulder pain Pain Location Details R Deltoid medial and anterior Intensity 3 Scale Used Numeric (0 - 10) Description- Other Only when raising arm. PT-OP-H Neuro Start: 12/23/22 18:18 Freq: Status: Active Protocol: Document 12/27/22 15:34 LRN (Rec: 12/27/22 17:10 LRN [id number]) Sensation Evaluation Gross Sensation Gross Sensation WNL Deep Tendon Reflex & Clonus Assessment Deep Tendon Reflex Left Tricep Deep Tendon Reflex 2+ Normal Right Tricep Deep Tendon Reflex 1+ Diminished Bilateral Brachioradialis Deep Tendon Reflex 2+ Normal Bilateral Bicep Deep Tendon Reflex 2+ Normal PT-OP-J Posture/Palpation/Skin Start: 12/23/22 18:18 Freq: Status: Active Protocol: Document 12/27/22 15:34 LRN (Rec: 12/27/22 17:10 LRN [id number]) Posture Evaluation Position Standing Head/C-Spine Posture Forward Head T-Spine Posture Increased Kyphosis Shoulder Posture (L) Rounded,(R) Rounded,(L) Forward,(R) Forward,(R) Elevated Scapula Posture (R) Retracted,(R) Rotated Down Arm Posture (L) Internally Rotated,(R) Internally Rotated Comments Posture Comments Mild IR of arms. C-curve of spine with apex on left at T12 Palpation Assessment Location R Infraspinatus Palpation Location R Infraspinatus Palpation Details Decreased ms tone. R shoulder Palpation Location RC attachments at R humeral head, and lateral Deltoid Palpation Findings Tenderness PT-OP-K Range of Motion Start: 12/23/22 18:18 Freq: Status: Active Protocol: Document 02/03/23 13:02 LRN (Rec: 02/03/23 13:49 LRN [id number]) Shoulder Goniometric Range of Motion Shoulder Right Active Shoulder ROM WFL No Testing Position Standing Flexion 138 Extension 50 Abduction 83 External Rotation at 0 degrees Abduction 72 Internal Rotation Behind Back (text) L3 Comments Reaching Behind head: back of head PT-OP-L Special Tests Start: 12/23/22 18:18 Freq: Status: Active Protocol: Document 12/27/22 15:34 LRN (Rec: 12/27/22 17:10 LRN [id number]) Special Tests Cervical Spine Special Tests Upper Limb Tension Test Test Results + Median nerve Traction Test Results + Comments Decreased R lateral shoulder discomfort Foraminal Compression Test Results - Spurling's Test Test Results - bilaterally Shoulder Special Tests Belly Press Test Results - R shoulder Comments Discomfort of R shoulder, no pain. IR/Horizontal ADD Impingement Test Results + R shoulder Comments Pain with IR shoulder Elevation Impingement Test Results + R shoulder Comments Pain PT-OP-M Strength Start: 12/23/22 18:18 Freq: Status: Active Protocol: Document 12/27/22 15:34 LRN (Rec: 12/27/22 17:10 LRN [id number]) Shoulder Strength Shoulder Manual Muscle Testing Right Flexion 4 Good Abduction (C5) 4 Good External Rotation 3 Fair Internal Rotation 5 Normal Comments Pain with MMT. Left Flexion 5 Normal Abduction (C5) 5 Normal External Rotation 5 Normal Internal Rotation 5 Normal PT-OP-Q Treatments Start: 12/23/22 18:18 Freq: Status: Active Protocol: Document 02/10/23 13:02 LRN (Rec: 02/10/23 13:50 LRN [id number]) Cardio Equipment Upper Body Ergometer (UBE) Duration (Minutes) 11 RPM 80 Seat Position 13 Height 3 Other Bkwd motion to start due to pain fwd motion, then 4' fwd, end bkwd. Therapeutic Exercises Standing Exercises Shoulder AROM Standing Exercise Name Shoulder AA flex (wall slide) Side right Equipment Used Wall Reps/Minutes 10 SH x 15 Scap retract Standing Exercise Name Scap retract/depression Side bilateral Equipment Used Med TB - port gamble Reps/Minutes 15x 2 R shdr IR Standing Exercise Name IR strengthening - alternating with ER Side right Equipment Used Med TB - port gamble Reps/Minutes 15x 2 Comments Discomfort end range pulling cuing scapular depression R shdr ER Standing Exercise Name ER strengthening - alternating with IR Side right Equipment Used Med TB - port gamble Reps/Minutes 15x 2 Comments No pain, cuing for scap depressed and retracted Self-Care/Home Management Treatment Education Patient Education Posture Other Education Pt educated and discussed proper standing & sitting and sidelie posturing with emphysis on head/neck shoulder positioniong. Discussed results of assessment, goals, and plan of care (POC). Pt agreeable to goals and POC of ongoing therapy for 4 more weeks before reassessment. Activities Self-Care/Home Management Activities Issued & reviewed handouts for proper standing, sitting and sidelie posturing. PT-OP-R Modalities Start: 12/23/22 18:18 Freq: Status: Active Protocol: Document 02/03/23 13:02 LRN (Rec: 02/03/23 13:49 LRN [id number]) Hot Pack/Cold Pack Treatment Cold Pack Location R shoulder Patient Position Hooklying Treatment Duration (minutes) 10 Patient Tolerance Good Comments Pt unable to do cryotherapy at home. PT-OP-T Assessment and Plan Start: 12/23/22 18:18 Freq: Status: Active Protocol: Document 02/10/23 13:02 LRN (Rec: 02/10/23 13:50 LRN [id number]) Physical Therapy Assessment Rehab Potential Rehabilitation Potential Good Evaluation Complexity Number of Personal Factors/Comorbidities 1-2 Number of Body Systems Impaired 4 or More Clinical Presentation at Evaluation Evolving Impairments Impairments Activity Tolerance,Pain, Posture,ROM,Soft Tissue Mobility,Strength Goals Three Impairment Decreased R shoulder strength Short Term Goal (STG) Pt will be able to lift his R arm overhead without having to use the L arm to assist and without pain. 12/29/22: Pt able to lift L arm >90 deg's w/o L arm assist, WITH R shoulder pain. 01/03/23: R shoulder ROM equal to L shoulder w/o pain at end of treatment. STG Duration 02/10/23 (01/03/23: MET GOAL) Residential Goal (LTG) Improve R shoulder strength with pt able to put his coat on without pain. 02/10/23: Pt able to put coat on, modifying the way he does (R arm in first and lower hand into arm sleeve), but with less pain. LTG Duration 03/27/23 progressed by modifying method of donning coat 02/10/23 Two Impairment Decreased R shoulder AROM Impairment 12/27/22: R shoulder AROM (deg 's) in standing: Flex 90, AB 52, ER at 0 deg's AB is 64, IR behind back L3, behind head - not able to reach side of head w/o pain. (L shoulder is flex 155, AB 170, ER at 0 deg 's AB is 64 deg's, IR behind back T8, ER behind head - T2). 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 01/17/23: R shoulder AROM in standing: flex is 115 deg's, AB 83 deg's, ER at 0 deg's AB is 72 deg's, IR behind back is L3, ER behind head is C7. 02/10/23: R shoulder AROM in sitting: flex is 142 deg's, AB 110 deg's, ER (at 0 deg's of AB) is 75 deg's. LTG Duration 03/27/23 progressing 02/10/23 One Impairment Lacks appropriate self care HEP. Short Term Goal (STG) Pt will be educated in use of cold pack for pain management and in proper posturing. 01/05/23: Pt educated in proper posture sitting and standing. 01/10/23: Pt educated in use of cold pack for pain management (RICE program). 01/20/23: Pt educated in proper standing, and sleeping positions (sidelie bilaterally and supine), used anatomy model for education. 02/10/23: Re-education of pt in proper standing, and sleeping positions (sidelie bilaterally and supine), and log roll transfer sup<>sit. STG Duration 02/10/23 (01/20/23: MET GOAL ) Residential Goal (LTG) Pt will be independent with a self care HEP of R shoulder ROM and RC strengthening exercise. 12/27/22: HEP: Sitting shdr ER /IR 12/29/22: HEP: Sitting FF stretch-table slide, standing FF wall slide & scap pinch/ depression. 01/05/23: I/S HEP: Open book stretch. 01/10/23: HEP: Open book stretch. 01/13/23: HEP: TBand scap retract (row), shldr ER/IR strengthening. 01/20/23: I/S pt in: Neck elongation for proper posturing in all positions and especially prior to sleeping. LTG Duration 03/27/23 progressed 01/20/23 Progress Towards Goals Progress Comments R shoulder standing AROM improved with flex, AB & ER ( see LTG #2 above). Assessment Summary Assessment Pt with R RC dysfunction with +impingement with limited active R shoulder ROM and decreased strength, possible cervical involvement and obvious postural involvement. The pt may have RC involvement of his IR's due to decreased strength from pain noted. Since last treatment, the pt has made an effort to increase ex's at home and today shows improvement in his R shoulder mobility; therefore the pt would like to purse further therapy with committment to do more home ex 's in hopes of improving his function and lessening his R shoulder pain to avoid surgery . Physical Therapy Plan Frequency and Duration Frequency of Treatment 2x/Week Plan of Care Start Date 12/27/22 Plan of Care End Date 03/27/23 Therapeutic Interventions Therapeutic Interventions Home Exercise Program,Joint Mobilizations,Manual Therapy, Neuromuscular Re-education, Patient/Caregiver Education, Self-Care/Home Management,Soft Tissue Mobilization,Taping, Therapeutic Exercises Modalities Cold Pack/Ice Massage,Hot Packs,Ultrasound Next Visit Focus/Plan Next Note Type Treatment Note Next Visit Plan Cont 4 more weeks unless no significant improvement is noted. If no improvement in 2 weeks, refer pt back to MD. End with CP (per pt request). Review/issue HEP: Neck elongation and proper posturing. Assess response to proper posturing nighttime. Review: open book stretch one more time, cont JMT of T/S. Review: R shoulder ROM/PROM with wall slide w/neck elongation. Add to HEP: RC (lat pull down , shoulder depression) strengthening & T/S extension, Pec stretch. Manual: MWM (R shoulder posterior rot w/flex) for R anter shoulder painfree ROM & C/S traction. Cont STM to Stretch R anterior pecs and RC; JMT of T/S. Modalities: ? K-tape, pt must be able to self remove.
--- NOTE | 2023-02-16 16:55 | PT.OTN ---
Current Diagnoses Pain in right shoulder (02/16/23) Physical Therapy Treatment Note PT-OP-A Visit Information Start: 12/23/22 18:18 Freq: Status: Active Protocol: Document 02/16/23 13:05 LRN (Rec: 02/16/23 13:51 LRN [id number]) Out-Patient Physical Therapy Visit Information Visit Information Visit Type Treatment Note Visit Start Time 13:05 Visit Stop Time 13:48 Total Visit Minutes 53 Visit Number 09/10 to start Evaluation Information Evaluation Date 12/27/22 Precautions Precautions Controlled HBP, history of back pain, Ablation x 2 to control A.Fib (last time last year), Memory changes. PT-OP-B Current Condition Start: 12/23/22 18:18 Freq: Status: Active Protocol: Document 12/27/22 15:34 LRN (Rec: 12/27/22 17:10 LRN [id number]) Current Condition History of Current Condition Onset Date 2 months ago Current Complaints R shoulder History of Current Condition Insidous onset. Became gradually harder to raise his arm to put on a coat. Not as bad as it used to be a month ago. 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 Prior Treatments and Tests Dr. Vincent did physical exam. Developmental History Developmental History Few years ago did therapy for back. Treatment Goals Patient/Caregiver Goals Pt goal is to be able to reach up for things and put on his coat w/o pain and w/o his opposite arm helping. 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 Feels most pain when painting. No pain or sensation change in UE 's after waking up in morning. Can now sleep on sides and alternate sides during the night. PT-OP-H Neuro Start: 12/23/22 18:18 Freq: Status: Active Protocol: Document 12/27/22 15:34 LRN (Rec: 12/27/22 17:10 LRN [id number]) Sensation Evaluation Gross Sensation Gross Sensation WNL Deep Tendon Reflex & Clonus Assessment Deep Tendon Reflex Left Tricep Deep Tendon Reflex 2+ Normal Right Tricep Deep Tendon Reflex 1+ Diminished Bilateral Brachioradialis Deep Tendon Reflex 2+ Normal Bilateral Bicep Deep Tendon Reflex 2+ Normal PT-OP-J Posture/Palpation/Skin Start: 12/23/22 18:18 Freq: Status: Active Protocol: Document 12/27/22 15:34 LRN (Rec: 12/27/22 17:10 LRN [id number]) Posture Evaluation Position Standing Head/C-Spine Posture Forward Head T-Spine Posture Increased Kyphosis Shoulder Posture (L) Rounded,(R) Rounded,(L) Forward,(R) Forward,(R) Elevated Scapula Posture (R) Retracted,(R) Rotated Down Arm Posture (L) Internally Rotated,(R) Internally Rotated Comments Posture Comments Mild IR of arms. C-curve of spine with apex on left at T12 Palpation Assessment Location R Infraspinatus Palpation Location R Infraspinatus Palpation Details Decreased ms tone. R shoulder Palpation Location RC attachments at R humeral head, and lateral Deltoid Palpation Findings Tenderness PT-OP-K Range of Motion Start: 12/23/22 18:18 Freq: Status: Active Protocol: Document 02/03/23 13:02 LRN (Rec: 02/03/23 13:49 LRN [id number]) Shoulder Goniometric Range of Motion Shoulder Right Active Shoulder ROM WFL No Testing Position Standing Flexion 138 Extension 50 Abduction 83 External Rotation at 0 degrees Abduction 72 Internal Rotation Behind Back (text) L3 Comments Reaching Behind head: back of head PT-OP-L Special Tests Start: 12/23/22 18:18 Freq: Status: Active Protocol: Document 12/27/22 15:34 LRN (Rec: 12/27/22 17:10 N [id number]) Special Tests Cervical Spine Special Tests Upper Limb Tension Test Test Results + Median nerve Traction Test Results + Comments Decreased R lateral shoulder discomfort Foraminal Compression Test Results - Spurling's Test Test Results - bilaterally Shoulder Special Tests Belly Press Test Results - R shoulder Comments Discomfort of R shoulder, no pain. IR/Horizontal ADD Impingement Test Results + R shoulder Comments Pain with IR shoulder Elevation Impingement Test Results + R shoulder Comments Pain PT-OP-M Strength Start: 12/23/22 18:18 Freq: Status: Active Protocol: Document 12/27/22 15:34 LRN (Rec: 12/27/22 17:10 LRN [id number]) Shoulder Strength Shoulder Manual Muscle Testing Right Flexion 4 Good Abduction (C5) 4 Good External Rotation 3 Fair Internal Rotation 5 Normal Comments Pain with MMT. Left Flexion 5 Normal Abduction (C5) 5 Normal External Rotation 5 Normal Internal Rotation 5 Normal PT-OP-Q Treatments Start: 12/23/22 18:18 Freq: Status: Active Protocol: Document 02/16/23 13:05 LRN (Rec: 02/16/23 13:51 LRN [id number]) Cardio Equipment Upper Body Ergometer (UBE) Duration (Minutes) 10 RPM 80 Seat Position 13 Height 3 Other Bkwd motion to start due to pain fwd motion, then 4' fwd, end bkwd. Therapeutic Exercises Supine Exercises Shoulder relaxer Supine Exercise Name Arms to ceiling and easy circles CW/CCW Reps/Minutes 5x each Comments Cuing for breathing Goal post ex Supine Exercise Name Goals post mvmt of arms Reps/Minutes 3' Neck Elongation Supine Exercise Name Neck Elongation Reps/Minutes 2' Lat Pull down Supine Exercise Name Scap retract/depression Side bilateral Equipment Used Cane, 1#, L2 TB (orange) Reps/Minutes 15x 2 Sidelying Exercises T/S rot Sidelying Exercise Name I/S in HEP: Open Book Stretch Side bilateral Reps/Minutes 20x End-range 1 breath hold Sitting Exercises Elbow Ext Sitting Exercise Name Elbow Extension strengthening Side left Equipment Used 3# Reps/Minutes 10x 2 Comments Extra time taken to determin max tolerated tension and best positioning Elbow Flexion Sitting Exercise Name Elbow Flexion strengthening Side right Equipment Used 3# Reps/Minutes 10x 2 Comments Extra time taken to determin max tolerated tension and best positioning Standing Exercises Shoulder flex Standing Exercise Name Reaching to the ceiling Reps/Minutes 4' Comments Cuing for scapular depression/ retraction. ROM measured. Self-Care/Home Management Treatment Education Patient Education Home Exercise Program Activities Self-Care/Home Management Activities Issued & reviewed HEP: Goals post and shoulder relaxor ( easy circles) ex. PT-OP-R Modalities Start: 12/23/22 18:18 Freq: Status: Active Protocol: Document 02/03/23 13:02 LRN (Rec: 02/03/23 13:49 LRN [id number]) Hot Pack/Cold Pack Treatment Cold Pack Location R shoulder Patient Position Hooklying Treatment Duration (minutes) 10 Patient Tolerance Good Comments Pt unable to do cryotherapy at home. PT-OP-T Assessment and Plan Start: 12/23/22 18:18 Freq: Status: Active Protocol: Document 02/16/23 13:05 LRN (Rec: 02/16/23 13:51 [facility] [id number]) Physical Therapy Assessment Goals Three Impairment Decreased R shoulder strength Short Term Goal (STG) Pt will be able to lift his R arm overhead without having to use the L arm to assist and without pain. 12/29/22: Pt able to lift L arm >90 deg's w/o L arm assist, WITH R shoulder pain. 01/03/23: R shoulder ROM equal to L shoulder w/o pain at end of treatment. STG Duration 02/10/23 (01/03/23: MET GOAL) [place] [employer] Member Goal (LTG) Improve R shoulder strength with pt able to put his coat on without pain. 02/10/23: Pt able to put coat on, modifying the way he does (R arm in first and lower hand into arm sleeve), but with less pain. LTG Duration 03/27/23 progressed by modifying method of donning coat 02/10/23 Two Impairment Decreased R shoulder AROM Impairment 12/27/22: R shoulder AROM (deg 's) in standing: Flex 90, AB 52, ER at 0 deg's AB is 64, IR behind back L3, behind head - not able to reach side of head w/o pain. (L shoulder is flex 155, AB 170, ER at 0 deg 's AB is 64 deg's, IR behind back T8, ER behind head - T2). Shelter Goal (LTG) Improve R shoulder AROM to 155 deg's with pt able to reach overhead without pain. 01/17/23: R shoulder AROM in standing: flex is 115 deg's, AB 83 deg's, ER at 0 deg's AB is 72 deg's, IR behind back is L3, ER behind head is C7. 02/10/23: R shoulder AROM in sitting: flex is 142 deg's, AB 110 deg's, ER (at 0 deg's of AB) is 75 deg's. 02/16/23: R shoulder active flex in standing: slow movement is 155 deg's LTG Duration 03/27/23 progressing 02/16/23, achieved flex 155 deg's for first time. One Impairment Lacks appropriate self care HEP. Short Term Goal (STG) Pt will be educated in use of cold pack for pain management and in proper posturing. 01/05/23: Pt educated in proper posture sitting and standing. 01/10/23: Pt educated in use of cold pack for pain management (RICE program). 01/20/23: Pt educated in proper standing, and sleeping positions (sidelie bilaterally and supine), used anatomy model for education. 02/10/23: Re-education of pt in proper standing, and sleeping positions (sidelie bilaterally and supine), and log roll transfer sup<>sit. STG Duration 02/10/23 (01/20/23: MET GOAL ) Shelter Goal (LTG) Pt will be independent with a self care HEP of R shoulder ROM and RC strengthening exercise. 12/27/22: HEP: Sitting shdr ER /IR 12/29/22: HEP: Sitting FF stretch-table slide, standing FF wall slide & scap pinch/ depression. 01/05/23: I/S HEP: Open book stretch. 01/10/23: HEP: Open book stretch. 01/13/23: HEP: TBand scap retract (row), shldr ER/IR strengthening. 01/20/23: I/S pt in: Neck elongation for proper posturing in all positions and especially prior to sleeping. LTG Duration 03/27/23 progressed 01/20/23 Progress Towards Goals Progress Comments 02/16/23: Can now sleep on sides and alternate sides through the night without pain . Assessment Summary Assessment Pt improving in strength as noted by increased resistance tolerance or reps. + response to neck elongation and proper posturing at nighttime with pt no longer having shoulder pain at night, lying on either side. Pt demonstrating much better awareness of head on shoulders posturing. Good movment with open book ex. Physical Therapy Plan Frequency and Duration Frequency of Treatment 2x/Week Plan of Care Start Date 12/27/22 Plan of Care End Date 03/27/23 Next Visit Focus/Plan Next Note Type Treatment Note Next Visit Plan Cont 3 more weeks unless no significant improvement is noted. If no improvement in 1 weeks, refer pt back to MD. End with CP (per pt request). Review/issue HEP: Neck elongation. Cont JMT of T/S. Review: R shoulder ROM/PROM with wall slide w/neck elongation. Add to HEP: RC (lat pull down , shoulder depression) strengthening & T/S extension, Pec stretch. Manual: MWM (R shoulder posterior rot w/flex) for R anter shoulder painfree ROM & C/S traction. Cont STM to Stretch R anterior pecs and RC; JMT of T/S. Modalities: ? K-tape, pt must be able to self remove.
--- NOTE | 2023-02-21 16:45 | PT.OTN ---
Current Diagnoses Pain in right shoulder (02/21/23) Physical Therapy Treatment Note PT-OP-A Visit Information Start: 12/23/22 18:18 Freq: Status: Active Protocol: Document 02/21/23 15:23 LRN (Rec: 02/21/23 16:38 LRN [id number]) Out-Patient Physical Therapy Visit Information Visit Information Visit Type Treatment Note Visit Note PT only Visit Start Time 15:23 Visit Stop Time 16:21 Total Visit Minutes 58 Visit Number 10/10 to start Evaluation Information Evaluation Date 12/27/22 Precautions Precautions Controlled HBP, history of back pain, Ablation x 2 to control A.Fib (last time last year), Memory changes. PT-OP-B Current Condition Start: 12/23/22 18:18 Freq: Status: Active Protocol: Document 12/27/22 15:34 LRN (Rec: 12/27/22 17:10 LRN [id number]) Current Condition History of Current Condition Onset Date 2 months ago Current Complaints R shoulder History of Current Condition Insidous onset. Became gradually harder to raise his arm to put on a coat. Not as bad as it used to be a month ago. 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 Prior Treatments and Tests Dr. Vincent did physical exam. Developmental History Developmental History Few years ago did therapy for back. Treatment Goals Patient/Caregiver Goals Pt goal is to be able to reach up for things and put on his coat w/o pain and w/o his opposite arm helping. 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 PT-OP-C Subjective Start: 12/23/22 18:18 Freq: Status: Active Protocol: Document 02/21/23 15:23 LRN (Rec: 02/21/23 16:38 LRN [id number]) OP-PT Subjective Patient Comments Patient Comments States overall he thinks he is better, but he has soreness in the shoulder. Raised blinds with pain. 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 Patient Questionnaires Quick Dash- Upper Extremity Quick Dash UE Score 22.7 Quick Dash UE Impairment 20 to 39% Impaired (Score 20- 39) PT-OP-H Neuro Start: 12/23/22 18:18 Freq: Status: Active Protocol: Document 12/27/22 15:34 LRN (Rec: 12/27/22 17:10 LRN [id number]) Sensation Evaluation Gross Sensation Gross Sensation WNL Deep Tendon Reflex & Clonus Assessment Deep Tendon Reflex Left Tricep Deep Tendon Reflex 2+ Normal Right Tricep Deep Tendon Reflex 1+ Diminished Bilateral Brachioradialis Deep Tendon Reflex 2+ Normal Bilateral Bicep Deep Tendon Reflex 2+ Normal PT-OP-J Posture/Palpation/Skin Start: 12/23/22 18:18 Freq: Status: Active Protocol: Document 12/27/22 15:34 LRN (Rec: 12/27/22 17:10 LRN [id number]) Posture Evaluation Position Standing Head/C-Spine Posture Forward Head T-Spine Posture Increased Kyphosis Shoulder Posture (L) Rounded,(R) Rounded,(L) Forward,(R) Forward,(R) Elevated Scapula Posture (R) Retracted,(R) Rotated Down Arm Posture (L) Internally Rotated,(R) Internally Rotated Comments Posture Comments Mild IR of arms. C-curve of spine with apex on left at T12 Palpation Assessment Location R Infraspinatus Palpation Location R Infraspinatus Palpation Details Decreased ms tone. R shoulder Palpation Location RC attachments at R humeral head, and lateral Deltoid Palpation Findings Tenderness PT-OP-K Range of Motion Start: 12/23/22 18:18 Freq: Status: Active Protocol: Document 02/21/23 15:23 LRN (Rec: 02/21/23 16:38 LRN [id number]) Shoulder Goniometric Range of Motion Shoulder Left Active Shoulder ROM WFL Yes Testing Position Standing Flexion 160 Extension 55 Abduction 170 External Rotation at 0 degrees Abduction 72 Internal Rotation Behind Back (text) T8 Comments Reaching Behind head: T2 Right Active Shoulder ROM WFL No Testing Position Standing Flexion 150 Extension 55 Abduction 157 External Rotation at 0 degrees Abduction 72 Internal Rotation Behind Back (text) L3 Comments Reaching Behind head: T1. PT-OP-L Special Tests Start: 12/23/22 18:18 Freq: Status: Active Protocol: Document 12/27/22 15:34 LRN (Rec: 12/27/22 17:10 LRN [id number]) Special Tests Cervical Spine Special Tests Upper Limb Tension Test Test Results + Median nerve Traction Test Results + Comments Decreased R lateral shoulder discomfort Foraminal Compression Test Results - Spurling's Test Test Results - bilaterally Shoulder Special Tests Belly Press Test Results - R shoulder Comments Discomfort of R shoulder, no pain. IR/Horizontal ADD Impingement Test Results + R shoulder Comments Pain with IR shoulder Elevation Impingement Test Results + R shoulder Comments Pain PT-OP-M Strength Start: 12/23/22 18:18 Freq: Status: Active Protocol: Document 02/21/23 15:23 LRN (Rec: 02/21/23 16:38 LRN [id number]) Shoulder Strength Shoulder Manual Muscle Testing Right Flexion 5 Normal Extension 4+ Good+ Abduction (C5) 4 Good Adduction 5 Normal External Rotation 4+ Good+ Internal Rotation 5 Normal Comments Shoulder elevation with AB. Pain with MMT of shoulder AB. Left Flexion 5 Normal Extension 5 Normal Abduction (C5) 5 Normal Adduction 5 Normal External Rotation 5 Normal Internal Rotation 5 Normal PT-OP-Q Treatments Start: 12/23/22 18:18 Freq: Status: Active Protocol: Document 02/21/23 15:23 LRN (Rec: 02/21/23 16:38 LRN [id number]) Cardio Equipment Upper Body Ergometer (UBE) Duration (Minutes) 10 RPM 75 Seat Position 13 Height 3 Other Bkwd motion to start due to pain fwd motion, then 4' fwd, end bkwd. Therapeutic Exercises Supine Exercises Shoulder AB Supine Exercise Name Stretch into shoulder AB Side right Reps/Minutes 2' Comments MWM: shoulder ER w/AB stretch. Inferior capsule stretch Supine Exercise Name Inferior capsule stretch Side right Equipment Used towel roll under proximal humeral head Reps/Minutes 4' Comments Extra time taken to determine max tolerated stretch Shldr ER Supine Exercise Name Shoulder ER/inferior capsule stretch: Arm overhead with forearm on head. Side right Reps/Minutes 6' Sitting Exercises Shoulder RAJI Sitting Exercise Name Manual resisted shoulder Flex, AB, ER, IR Side bilateral Reps/Minutes 2x each Comments MMT taken Standing Exercises Shoulder flex Standing Exercise Name Reaching to the ceiling Reps/Minutes 6' Comments Cuing for scapular depression/ retraction. AB ROM measured. Shoulder AROM Standing Exercise Name Shoulder AA flex (wall slide) and AROM Side right Equipment Used Wall Reps/Minutes 10 SH x 15 Comments ROM taken R shdr IR Standing Exercise Name Reaching behind back stretch Side bilateral Reps/Minutes 2x Comments ROM taken R shdr ER Standing Exercise Name Reaching behind head stretch Side bilateral Reps/Minutes 2x Comments ROM taken Self-Care/Home Management Treatment Activities Self-Care/Home Management Activities Issued & reviewed HEP: Inferior shoulder stretch and shoulder AB stretch PT-OP-R Modalities Start: 12/23/22 18:18 Freq: Status: Active Protocol: Document 02/03/23 13:02 LRN (Rec: 02/03/23 13:49 LRN [id number]) Hot Pack/Cold Pack Treatment Cold Pack Location R shoulder Patient Position Hooklying Treatment Duration (minutes) 10 Patient Tolerance Good Comments Pt unable to do cryotherapy at home. PT-OP-T Assessment and Plan Start: 12/23/22 18:18 Freq: Status: Active Protocol: Document 02/21/23 15:23 LRN (Rec: 02/21/23 16:38 LRN [id number]) Physical Therapy Assessment Goals Three Impairment Decreased R shoulder strength Short Term Goal (STG) Pt will be able to lift his R arm overhead without having to use the L arm to assist and without pain. 12/29/22: Pt able to lift L arm >90 deg's w/o L arm assist, WITH R shoulder pain. 01/03/23: R shoulder ROM equal to L shoulder w/o pain at end of treatment. STG Duration 02/10/23 (01/03/23: MET GOAL) Group Home Goal (LTG) Improve R shoulder strength with pt able to put his coat on without pain. 02/10/23: Pt able to put coat on, modifying the way he does (R arm in first and lower hand into arm sleeve), but with less pain. LTG Duration 03/27/23 (02/21/23: MET GOAL with modified method of donning coat) Two Impairment Decreased R shoulder AROM Impairment 12/27/22: R shoulder AROM (deg 's) in standing: Flex 90, AB 52, ER at 0 deg's AB is 64, IR behind back L3, behind head - not able to reach side of head w/o pain. (L shoulder is flex 155, AB 170, ER at 0 deg 's AB is 64 deg's, IR behind back T8, ER behind head - T2). Group Home Goal (LTG) Improve R shoulder AROM to 155 deg's with pt able to reach overhead without pain. 01/17/23: R shoulder AROM in standing: flex is 115 deg's, AB 83 deg's, ER at 0 deg's AB is 72 deg's, IR behind back is L3, ER behind head is C7. 02/10/23: R shoulder AROM in sitting: flex is 142 deg's, AB 110 deg's, ER (at 0 deg's of AB) is 75 deg's. 02/16/23: R shoulder active flex in standing: slow movement is 155 deg's LTG Duration 03/27/23 (02/21/23: slight discomfort reaching overhead) One Impairment Lacks appropriate self care HEP. Short Term Goal (STG) Pt will be educated in use of cold pack for pain management and in proper posturing. 01/05/23: Pt educated in proper posture sitting and standing. 01/10/23: Pt educated in use of cold pack for pain management (RICE program). 01/20/23: Pt educated in proper standing, and sleeping positions (sidelie bilaterally and supine), used anatomy model for education. 02/10/23: Re-education of pt in proper standing, and sleeping positions (sidelie bilaterally and supine), and log roll transfer sup<>sit. STG Duration 02/10/23 (01/20/23: MET GOAL ) Clinical Psychology Professor Goal (LTG) Pt will be independent with a self care HEP of R shoulder ROM and RC strengthening exercise. 12/27/22: HEP: Sitting shdr ER /IR 12/29/22: HEP: Sitting FF stretch-table slide, standing FF wall slide & scap pinch/ depression. 01/05/23: I/S HEP: Open book stretch. 01/10/23: HEP: Open book stretch. 01/13/23: HEP: TBand scap retract (row), shldr ER/IR strengthening. 01/20/23: I/S pt in: Neck elongation for proper posturing in all positions and especially prior to sleeping. 02/21/23: Inferior capsule stretch and shoulder AB stretch. 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 He is functional with activities as he has modified the way he moves, but has weakness with lifting with his arms in overhead position. Function per UE Quickdash show no significant improvement in function, but pt reports improvement in function. Pt has reached his insurance limit and is chosing to be discharged from physical therapy for financial reasons. The pt is being referred back to your office for further medical assessment of his rotator cuff for his R shoulder pain. Physical Therapy Plan Frequency and Duration Frequency of Treatment 2x/Week Plan of Care Start Date 12/27/22 Plan of Care End Date 03/27/23 Discharge Physical Therapy Discharge Comments Pt choosing to discharge from therapy due to financial reasons. He has R shoulder pain with forced flexion indicating impingement. See assessment above. Thank you for your referral.
== END 2023-02-23 10:25 | disposition home or self-care (01) ==
LOC: PHYS 15:15
PROVIDERS: Family Provider Family Medicine; PCP Family Medicine; Referring Provider Family Medicine; Visit Provider Family Medicine
DX: M25.511 Pain in right shoulder (principal)
CPT/HCPCS: 97010; 97110; 97140; 97162; 97535

== ENCOUNTER → 2023-07-08 13:30 | Outpatient (CLI) | payer OTHER, MEDICAID, SELFPAY | PROVIDERS: Family Provider Family Medicine; PCP Family Medicine; Visit Provider Registered Nurse | DX: N39.0 Urinary tract infection, site not specified (principal) | CPT/HCPCS: 87086 ==

== ENCOUNTER → 2023-10-24 15:04 | Outpatient (CLI) | payer OTHER, MEDICAID, SELFPAY ==
[2023-10-24 15:58] LABS: BUN Creatinine Ratio 22.1 (6-22); Blood Urea Nitrogen 15 mg/dL (9-20); Calcium 9.8 mg/dL (8.4-10.2); Carbon Dioxide 32 mmol/L (22-32); Chloride 101 mmol/L (98-107); Estimated Glomerular Filt Rate > 60 mL/min (>60); Glucose 68 mg/dL (80-110); HEMOLYSIS < 15 (0-50); Potassium 4.6 mmol/L (3.4-5.1); Sodium 138 mmol/L (137-145)
[2023-10-25 09:24] LABS: PSA Free % 5.7 % (.)
== END ==
PROVIDERS: Family Provider Family Medicine; PCP Family Medicine; Referring Provider Specialist; Visit Provider Specialist
DX: R97.20 Elevated prostate specific antigen [PSA] (principal); R31.0 Gross hematuria; N52.9 Male erectile dysfunction, unspecified; N40.0 Benign prostatic hyperplasia without lower urinary tract symptoms
CPT/HCPCS: 36415; 80048; 84153; 84154

== ENCOUNTER → 2023-10-26 14:56 | Outpatient (CLI) | payer OTHER, MEDICAID, SELFPAY ==
--- NOTE | 2023-10-26 | DI.CT.S_ITS ---
PROCEDURE: CT CHEST WO CON INDICATIONS: LUNG NODULE TECHNIQUE: Noncontrast 5 mm thick sections acquired from the pulmonary apices to the posterior costophrenic angles. 1 mm lung window, 5 mm thick coronal and sagittal and 7 mm axial MIP reformats were then acquired. For radiation dose reduction, the following was used: automated exposure control, adjustment of mA and/or kV according to patient size. COMPARISON: [facility], CT, CT ANGIO CHEST, 05/20/2022, 15:29. FINDINGS: Image quality: Excellent. Lungs and pleura: No acute air space opacities. Ground-glass opacity in the superior segment of the right lower lobe series 3, image 135 is unchanged in size measuring approximately 7 mm. Pleural plaques are noted in the right upper lung posteriorly. Biapical scarring is unchanged. No pleural effusions or pneumothorax. Central and peripheral airways are patent and normal in caliber. Mediastinum: Heart size is normal. Left fat containing Bochdalek hernia measuring approximately 10 cm in axial diameter. The coronary arteries have atherosclerotic calcifications. No pericardial effusion. No mediastinal adenopathy by size criteria. Fat containing hernia around the aortic hiatus is unchanged. Thoracic aorta and central pulmonary arteries are normal in size. Esophagus is normal in caliber. Bones and chest wall: No suspicious bony lesions. No vertebral body compression fractures. No axillary or supraclavicular adenopathy by size criteria. Thyroid gland is normal. Abdomen: Limited visualization of the upper abdomen shows no acute abnormality. IMPRESSION: 1. No acute abnormality of the chest. 2. 7 mm ground-glass opacity in the superior segment of the right lower lobe is unchanged and given 18 months stability is considered benign. 3. Coronary artery calcifications. Dictated by: Jose Anne M.D. on 10/26/2023 at 17:23 Approved by: Jose Anne M.D. on 10/26/2023 at 17:42
--- NOTE | 2023-10-26 15:30 | DI.CT.S_ITS ---
PROCEDURE: CT IVP A/P W/WO INDICATIONS: evaluate urinary tract TECHNIQUE: Optional 5 mm thick noncontrast images acquired from the diaphragm to the symphysis pubis. After the administration of intravenous contrast, 5 mm thick images acquired from the diaphragm to the symphysis pubis after a 10-minute delay. 2 mm thick coronal and sagittal reformats were then performed of the kidneys and ureters. For radiation dose reduction, the following was used: automated exposure control, adjustment of mA and/or kV according to patient size. COMPARISON: None. FINDINGS: Lower thorax: Moderate hiatal hernia present Liver: The liver is diffusely decreased in attenuation without focal mass lesion. Biliary system: No calcified cholelithiasis or pericholecystic inflammation. No intra or extrahepatic bile duct dilatation. Pancreas: Unremarkable without mass or inflammation evident. Spleen: Normal in size and density. Adrenals: Normal morphology and density. Reproductive system: Central prostate hypertrophy elevates the bladder floor. Bladder is otherwise unremarkable Urinary system: Bilateral renal cortical and peripelvic cysts present. On the right, there is a 4.7 cm cortical cyst and 4.0 cm peripelvic cyst. On the left, largest cortical cyst measures 3.9 cm. Grade contrast concentration and excretion. No calculus or hydronephrosis Gastrointestinal system: The bowel is unremarkable without evidence of bowel obstruction or inflammation. The stomach appears unremarkable. Multiple diverticula arise from the sigmoid colon without evidence of diverticulitis. Appendix: No findings to suggest acute appendicitis. Peritoneal spaces: No mesenteric or retroperitoneal adenopathy. No free air. No free fluid. Vasculature: The IVC, aorta and iliac vasculature are unremarkable. Abdominal wall: Abdominal wall intact without evidence of ventral or inguinal hernias. Musculoskeletal: Normal bone mineralization. Degenerative disc disease and arthropathy noted in lower lumbar spine. No acute fractures. IMPRESSION: 1. Bilateral renal simple cysts without evidence of mass lesion, calculus or hydronephrosis. 2. Central prostate hypertrophy elevates the bladder floor. No bladder wall thickening. 3. Chronic findings as above Approved by: David Shah M.D. on 10/26/2023 at 19:22
== END ==
PROVIDERS: Family Provider Family Medicine; PCP Family Medicine; Referring Provider Family Medicine; Visit Provider Family Medicine
DX: N28.1 Cyst of kidney, acquired (principal); R31.0 Gross hematuria; R91.8 Other nonspecific abnormal finding of lung field; I25.10 Atherosclerotic heart disease of native coronary artery without angina pectoris; N40.0 Benign prostatic hyperplasia without lower urinary tract symptoms; K44.9 Diaphragmatic hernia without obstruction or gangrene; K57.30 Diverticulosis of large intestine without perforation or abscess without bleeding; M51.36 Other intervertebral disc degeneration, lumbar region; M47.816 Spondylosis without myelopathy or radiculopathy, lumbar region; Z87.891 Personal history of nicotine dependence
CPT/HCPCS: 71250; 74178

== ENCOUNTER → 2023-12-01 15:27 | Outpatient (CLI) | payer OTHER, MEDICAID, SELFPAY ==
--- NOTE | 2023-12-01 15:28 | DI.MRI.S_ITS ---
PROCEDURE: MR PELIS WO/W CON INDICATIONS: Elevated PSA TECHNIQUE: Coronal HASTE, axial T1 FSE with fat saturation, 3-plane nonbreath-hold T2 FSE. After the administration of contrast, dynamic axial, delayed axial and coronal VIBE or 2-D FLASH with fat saturation through the pelvis. Diffusion weighted imaging and ADC was performed. COMPARISON: [facility], CT, CT IVP A/P W/WO, 10/26/2023, 15:09. FINDINGS: Image quality: Diffusion weighted and dynamic contrast enhanced images are diagnostic. Prostate: 4.4 x 4 x 4 centimeters. Estimated volume is 37 cc. Transitional zone heterogenous nodules are present, either well encapsulated or mostly encapsulated, compatible with PI-RADS 1 or 2 likely BPH nodules. Mildly T2 hypointense heterogenous striated appearance of the peripheral zone is commonly seen with current or prior prostatitis, PI-RADS 2. At the apex of the prostate in the posterior medial peripheral zone, there is a 12 x 10 x 10 millimeter lesion (4/17, 6/9). DWI score 3 (25/65). T2 score 4. DCE positive. PI-RADS 4. The seminal vesicles are clear. No extracapsular disease identified. Genitourinary system: Trabeculated bladder is likely from chronic obstruction. Bowel and peritoneum: No evidence of small bowel obstruction or pathologic ascites. Colonic diverticula are seen. Nodes and vessels: There are indeterminate pelvic lymph nodes, none of which are enlarged by size criteria. Soft tissues: Unremarkable pelvic wall. Bones: No acute or suspicious osseous findings. There are degenerative changes. IMPRESSION: PI-RADS 4 lesion in the right apex peripheral zone. Dictated by: Iggy Tan M.D. on 12/01/2023 at 19:25 Approved by: Iggy Tan M.D. on 12/01/2023 at 19:32
== END ==
PROVIDERS: Family Provider Family Medicine; PCP Family Medicine; Referring Provider Specialist; Visit Provider Specialist
DX: N42.9 Disorder of prostate, unspecified (principal); R97.20 Elevated prostate specific antigen [PSA]
CPT/HCPCS: 72197; A9579

== ENCOUNTER → 2024-02-09 16:45 | Outpatient (CLI) | payer MEDICARE, MEDICAID, SELFPAY ==
--- NOTE | 2024-02-09 16:52 | DI.RAD.S_ITS ---
PROCEDURE: XR SHOULDER RT MIN 2V INDICATIONS: SHOULDER PAIN TECHNIQUE: 3 views of the shoulder were acquired. COMPARISON: None. FINDINGS: Moderate degenerative changes of the acromioclavicular joint with inferior projecting osteophytes. Mild degenerative change of the glenohumeral joint. No acute fracture or dislocation of the right shoulder. Somewhat linear radiodensity projects over the right lung apex, nonspecific. IMPRESSION : Degenerative changes. Dictated by: Sara Riddle M.D. on 02/09/2024 at 19:52 Approved by: Sara Riddle M.D. on 02/09/2024 at 19:56
== END ==
PROVIDERS: Family Provider Family Medicine; PCP Family Medicine; Referring Provider Family Medicine; Visit Provider Family Medicine
DX: M25.511 Pain in right shoulder (principal); G89.29 Other chronic pain
CPT/HCPCS: 73030

== ENCOUNTER → 2024-02-12 14:57 | Outpatient (CLI) | payer MEDICARE, MEDICAID, SELFPAY ==
--- NOTE | 2024-02-12 15:00 | DI.ECHO.S_ITS ---
[place] +---------+ [facility] +---------+ : : [address] : : : : [id number] : : : : Phone: [phone]---------+ Echocardiogram Report + + :Name: YOLI MCKAY Study Date: 02/12/2024 Height: 68 in : :[facility] ReadingLocation: Weight: 189 lb : : Gender: Male BSA: 2.0 m2 : :: 1945 Age: 78 yrs BP: 144/91 mmHg: :Reason For Study: NONRHEUMATIC MITRAL VALVE INSUFFICIENCY : :Ordering Physician: TEA, : :BERNABE Performed By: Joshua Moreno : :Referring: BERNABE METCALF : + + Interpretation Summary The patient was in normal sinus rhythm during the exam. The left ventricle is normal in size. The ejection fraction is estimated to be 65-70%. Compared to the prior exam, the left ventricular function is improved. The right ventricle is mildly dilated. The right ventricular systolic function is normal. There is moderate mitral regurgitation. Compared to the prior echo study, there has been no change in the severity of mitral regurgitation. There is mild aortic regurgitation. There is mild tricuspid regurgitation. Compared to the prior echo exam, there has been a decrease in TR severity. The right ventricular systolic pressure is estimated to be at least 33 mmHg based on an estimated right atrial pressure of 3 mm Hg. Previously patient was in A-fib with LVEF:55 +/- 5%. That time moderate MR and moderate TR. Aortic arch was not well-visualized. Procedure: A two-dimensional transthoracic echocardiogram with color flow and Doppler was performed. The study quality was technically adequate. Comparison is made with the echocardiogram of 04/04/2022. The patient was in normal sinus rhythm during the exam. The heart rate ranged between 59-71 bpm during the study. Left Ventricle: The left ventricle is normal in size. Proximal septal thickening is noted. There is no echo evidence for significant left ventricular outflow tract obstruction. There is no thrombus. The ejection fraction is estimated to be 65-70%. Compared to the prior exam, the left ventricular function is improved. There are no focal wall motion abnormalities. MV E/A: 1.2 Med Peak E' Chucky: 7.5 cm/sec E/E' med: 9.9. Right Ventricle: The right ventricle is mildly dilated. The right ventricular systolic function is normal. Atria: The left atrium is severely dilated. The left atrium has remained unchanged in size since the prior echo exam. The right atrium is moderately dilated. The right atrium has mildly decreased in size since the prior echo exam. The interatrial septum grossly appears intact with no obvious evidence for an atrial septal defect. Mitral Valve: MAC. There is mild mitral annular calcification. There is no mitral valve stenosis. There is moderate mitral regurgitation. Compared to the prior echo study, there has been no change in the severity of mitral regurgitation. Aortic Valve: The aortic valve is trileaflet. The aortic valve is mildly calcified. There is no aortic valve stenosis. There is mild aortic regurgitation. Tricuspid Valve: The tricuspid valve is normal. There is mild tricuspid regurgitation. The right ventricular systolic pressure is estimated to be at least 33 mmHg based on an estimated right atrial pressure of 3 mm Hg. Compared to the prior echo exam, there has been a decrease in TR severity. Pulmonic Valve: The pulmonic valve is not well visualized. There is no pulmonic valvular stenosis. There is mild pulmonic regurgitation. Great Vessels: The aortic root is normal size. The dimensions of the ascending aorta are normal. The IVC is of normal diameter and collapses greater than 50% with a sniff. This suggests a low right atrial pressure of 3 mm Hg. Pericardium/ Pleura There is no pericardial effusion. There is no pleural effusion. MMode/2D Measurements & Calculations LVIDd: 4.7 cm LVOT diam: 2.1 cm LVIDs: 3.0 cm Ao root diam: 3.7 cm FS: 37.2 % asc Aorta Diam: 3.6 cm IVSd: 0.98 cm LVPWd: 1.0 cm LV kirkland. diameter/BSA (cm/m^2): 2.4 LV sys. diameter/BSA (cm/m^2): 1.5 LA A2 area: 27.6 cm2 RA long axis: 6.0 cm LA A4 area: 27.8 cm2 RA area: 23.4 cm2 LA length (vol): 6.2 cm RA vol: 76.8 ml LA vol: 104.4 ml RA : 38.5 ml/m2 LA vol index: 52.3 ml/m2 IVC diam: 1.9 cm RVD1 (basal): 4.8 cm RVD2 (mid): 3.9 cm TAPSE: 3.2 cm Doppler Measurements & Calculations Ao V2 max: 124.4 cm/sec LVOT Max Chucky: 100.5 cm/sec Ao V2 mean: 89.1 cm/sec LV V1 max P.0 mmHg Ao max P.2 mmHg LV V1 VTI: 22.9 cm Ao mean P.5 mmHg DUSTY(I,D): 2.8 cm2 Ao V2 VTI: 28.8 cm DUSTY(V,D): 2.9 cm2 sev ratio: 0.79 DUSTY indexed to BSA (cm^2/m^2): 1.4 AI P1/2t: 529.1 msec AI dec slope: 272.0 cm/sec2 MV E max chucky: 74.3 cm/sec TR max chucky: 276.3 cm/sec MV A max chucky: 60.4 cm/sec TR max P.6 mmHg MV E/A: 1.2 PA V2 max: 123.5 cm/sec Med Peak E' Chucky: 7.5 cm/sec PA V2 mean: 76.7 cm/sec E/E' med: 9.9 PA mean P.8 mmHg Lat Peak E' Chucky: 9.0 cm/sec PA pr(Accel): 37.9 mmHg E/E' lat: 8.2 E/e' average: 9.0 MV dec time: 0.21 sec MR ERO: 0.58 cm2 MR PISA: 10.0 cm2 SV(LVOT): 81.1 ml MR flow rate: 368.2 cm3/sec MR PISA radius: 1.3 cm Reading Physician:12:34 PM
== END ==
LOC: ECHO 15:00
PROVIDERS: Family Provider Family Medicine; PCP Family Medicine; Referring Provider Internal Medicine Cardiovascular Disease; Visit Provider Internal Medicine Cardiovascular Disease
DX: I08.3 Combined rheumatic disorders of mitral, aortic and tricuspid valves (principal)
CPT/HCPCS: 93306

== ENCOUNTER → 2024-07-09 14:27 | Outpatient (CLI) | payer MEDICARE, SELFPAY ==
[2024-07-09 15:15] LABS: Hematocrit 42.7 % (41-53); Hemoglobin 14.7 g/dL (13.5-17.5); Mean Corpuscular HGB Conc 34.4 % (30-36); Mean Corpuscular Hemoglobin 31.5 PG (26-34); Mean Corpuscular Volume 91.7 fL (80-100); Platelet Count 205 X10^3/uL (150-400); Red Blood Cell Count 4.65 X10^6/uL (4.5-5.9); White Blood Cell Count 4.5 X10^3/uL (4.5-11.0)
[2024-07-09 15:40] LABS: Alanine Aminotransferase 17 IU/L (<50); Albumin 3.8 g/dL (3.5-5.0); Albumin Globulin Ratio 1.4 (1.0-2.8); Alkaline Phosphatase 82 U/L (38-126); Aspartate Aminotransferase 27 IU/L (17-59); BUN Creatinine Ratio 20.3 (6-22); Bilirubin Total 0.7 mg/dL (0.2-1.3); Blood Urea Nitrogen 14 mg/dL (9-20); Calcium 9.6 mg/dL (8.4-10.2); Carbon Dioxide 29 mmol/L (22-32); Chloride 104 mmol/L (98-107); Cholesterol 187 mg/dL (140-199); Estimated Glomerular Filt Rate > 60 mL/min (>60); Globulin 2.8 g/dL (1.7-4.1); Glucose 93 mg/dL (80-110); HDL Cholesterol 57 mg/dL (40-60); HEMOLYSIS < 15 (0-50); LDL Cholesterol Calculated 112 mg/dL (<100); Potassium 4.1 mmol/L (3.4-5.1); Sodium 138 mmol/L (137-145); Total Protein 6.6 g/dL (6.3-8.2); Triglycerides 90 mg/dL (35-150)
[2024-07-09 16:45] LABS: Free T4, Direct Thyroxine 0.85 ng/dL (0.78-2.19)
[2024-07-09 17:00] LABS: Thyroid Stimulating Hormone 0.867 uIU/mL (0.47-4.68)
== END ==
PROVIDERS: Family Provider Family Medicine; PCP Family Medicine; Referring Provider Nurse Practitioner; Visit Provider Nurse Practitioner
DX: I48.0 Paroxysmal atrial fibrillation (principal); E78.5 Hyperlipidemia, unspecified; I27.20 Pulmonary hypertension, unspecified
CPT/HCPCS: 36415; 80053; 80061; 84439; 84443; 85027

== ENCOUNTER → 2024-09-05 14:00 | Outpatient (CLI) | payer MEDICARE, SELFPAY ==
[2024-09-05 15:28] LABS: Prostate Specific Antigen 0.693 ng/mL (0.10-4.00)
== END ==
PROVIDERS: Family Provider Family Medicine; PCP Family Medicine; Referring Provider Urology; Visit Provider Urology
DX: C61 Malignant neoplasm of prostate (principal)
CPT/HCPCS: 36415; 84153

== ENCOUNTER → 2024-11-09 12:27 | Outpatient (CLI) | payer OTHER, SELFPAY ==
[2024-11-09 13:49] LABS: Prostate Specific Antigen 0.189 ng/mL (0.10-4.00)
== END ==
PROVIDERS: Family Provider Family Medicine; PCP Family Medicine; Referring Provider Urology; Visit Provider Urology
DX: C61 Malignant neoplasm of prostate (principal)
CPT/HCPCS: 36415; 84153

== ENCOUNTER 2025-01-10 13:54 | Emergency (ER) | payer OTHER, SELFPAY ==
[2025-01-10 14:08] VITALS: BP 159/87; PULSE 63; RESP 16; TEMP 36.6; O2SAT 95; BMI 28.5
--- NOTE | 2025-01-10 15:01 | DI.US.S_ITS ---
PROCEDURE: US PERIPH VENOUS LOW EXTREM RT INDICATIONS: lower leg swelling, on thinner, RLE pain TECHNIQUE: Real-time imaging, as well as color and pulse Doppler interrogation, were performed of the lower extremity deep veins from the inguinal ligament to the popliteal fossa, with documentation of the visualized calf veins. COMPARISON: None. FINDINGS: The common femoral, femoral, popliteal, and the visualized calf veins are normally compressible, and free of intraluminal thrombus. Color and pulse Doppler demonstrate normal phasic intraluminal flow. There is normal augmentation response to distal compression maneuver. IMPRESSION: No findings of lower extremity deep venous thrombosis. Dictated by: Roman Clark M.D. on 01/10/2025 at 16:20 Approved by: Roman Clark M.D. on 01/10/2025 at 16:20
--- NOTE | 2025-01-10 15:09 | DI.RAD.S_ITS ---
PROCEDURE: XR FOOT RT MIN 3V INDICATIONS: foot/toe pain, foot swelling TECHNIQUE: 3 views of the foot were acquired. COMPARISON: None. FINDINGS: Bones: No fractures or dislocations. No suspicious bony lesions. Soft tissues: No tibiotalar joint effusion. Achilles tendon appears normal. IMPRESSION: No acute bony abnormality. Dictated by: Roman Clark M.D. on 01/10/2025 at 15:58 Approved by: Roman Clark M.D. on 01/10/2025 at 15:58
--- NOTE | 2025-01-10 15:22 | ED_ITS ---
HPI - Extremity Problem <Charley Ponce PA-C - Last Filed: 01/10/25 16:46> General Chief complaint: Extremity Problem,Nontraumatic Stated complaint: sent by [facility] for R leg US for poss dvt Time Seen by Provider: 01/10/25 14:32 History of Present Illness HPI Narrative: Mr. Lombardo is a very pleasant 79-year-old gentleman with a past medical history of atrial fibrillation status post ablation on Xarelto, prostate cancer status post radiation in October of this year who presents to the emergency department after being sent by the walk-in clinic for right lower leg swelling x2 months and written right foot pain x1 year. Patient initially went to the walk-in clinic for evaluation of his chronic right foot pain. However patient's right lower extremity was also found to be more swollen compared to the left, and the patient believes that this started about 2 months ago. He was sent to the ED for RLE US. Patient states that his pain is primarily in the right toes and is worse at night. He uses topical lidocaine to this area but is concerned because his toes are starting to curl down and he also has fungal disease of the toenails. He has not ever seen a mortgage loan funder or spoke to a doctor about his foot pain before. Denies chest pain, shortness of breath, fevers, chills, redness, wounds. He ambulates independently and declines pain medication at this time. Related Data Home Medications Medication Instructions Recorded Confirmed [id number] 300 mcg-K 60 1 tab PO DAILY 06/27/18 11/15/24 mcg-lycop 600 mcg-lutein 300 mcg tablet (Centrum Silver Ultra Men's) metoprolol tartrate 37.5 mg tablet 37.5 mg PO BID 08/08/22 11/15/24 rivaroxaban 20 mg tablet (Xarelto) 20 mg PO DAILY 08/08/22 11/15/24 simvastatin 10 mg tablet 10 mg PO DAILY 08/08/22 11/15/24 Previous Rx's Medication Instructions Recorded tamsulosin 0.4 mg capsule 0.8 mg (2 x 0.4 mg) PO DAILY #60 11/15/24 caps Allergies Allergy/AdvReac Type Severity Reaction Status Date / Time No Known Drug Allergies Allergy Verified 01/10/25 13:29 Review of Systems <Charley Ponce PA-C - Last Filed: 01/10/25 16:46> Review of Systems ROS Unobtainable: All systems reviewed & are unremarkable except as noted in HPI and below Patient History <Charley Ponce PA-C - Last Filed: 01/10/25 16:46> Medical History Androgen deprivation therapy Prostate cancer 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 Elevated PSA Gross hematuria Atrial fibrillation status post cardioversion Tricuspid valve regurgitation Mitral valve regurgitation History of alcohol abuse Hypertension History of tobacco use Atrial fibrillation Surgical History History of tonsillectomy History of inguinal hernia repair Family History Mother Cancer Father Leukemia Social History marital status: household members: significant other Smoking Status: Never smoker alcohol intake: current substance use type: does not use caffeine: Yes Smoking Status: Never smoker alcohol intake frequency: 3 or more drinks per day Alcohol type: beer and wine Exam <Charley Ponce PA-C - Last Filed: 01/10/25 16:46> Narrative Exam Narrative: GENERAL: 79 year old patient appears stated age. Well-developed patient, in no acute distress. HEAD: Atraumatic. Normocephalic. NECK: Trachea midline. Cervical ROM intact. CARDIOVASCULAR: Regular rate RESPIRATORY: ?Nonlabored respirations. ?Speaking in clear, full sentences. EXTREMITIES: 1+ pitting edema on BL ankles. RLE is more swollen than left, extending to the calf. There are some tortuous varicose veins on the posterior R calf and R ankle. He reports pain on R toes, there is onychomycosis BL. No lesions or wounds on the feet. Strong DP pulses bilaterally, 1+ PT pulses BL. Brisk capillary refill on the toes and sensation intact to touch on the plantar and dorsal aspects. No R calf tenderness. NEURO: AOx3. ?Clear speech. ?Moves all 4 extremities appropriately. SKIN: No rash or erythema of visible areas Initial Vital Signs Initial Vital Signs: Vital Signs Temperature 97.8 F 01/10/25 14:08 Pulse Rate 63 01/10/25 14:08 Respiratory Rate 16 01/10/25 14:08 Blood Pressure 159/87 H 01/10/25 14:08 Pulse Oximetry 95 01/10/25 14:08 Oxygen Delivery Method Room Air 01/10/25 14:08 <DO Spring Webster Last Filed: 01/11/25 22:35> Initial Vital Signs Initial Vital Signs: Vital Signs Temperature 97.8 F 01/10/25 14:08 Pulse Rate 63 01/10/25 14:08 Respiratory Rate 16 01/10/25 14:08 Blood Pressure 159/87 H 01/10/25 14:08 Pulse Oximetry 95 01/10/25 14:08 Oxygen Delivery Method Room Air 01/10/25 14:08 Course <JEFE Andrade Last Filed: 01/10/25 16:46> Orders Ordered: ED Orders 01/10/25 15:01 US periph venous low extrem rt Stat 01/10/25 15:09 XR foot RT min 3V Stat Vital Signs Vital signs: Vital Signs - 8 hr 01/10/25 14:08 Temperature 97.8 F Pulse Rate 63 Respiratory Rate 16 Blood Pressure 159/87 H Pulse Oximetry 95 Oxygen Delivery Method Room Air <DO Spring Webster Last Filed: 01/11/25 22:35> Orders Ordered: ED Orders 01/10/25 15:01 US periph venous low extrem rt Stat 01/10/25 15:09 XR foot RT min 3V Stat Vital Signs Vital signs: Vital Signs - 8 hr 01/10/25 14:08 Temperature 97.8 F Pulse Rate 63 Respiratory Rate 16 Blood Pressure 159/87 H Pulse Oximetry 95 Oxygen Delivery Method Room Air MDM - Extremity (Nontraumatic) <JEFE Andrade Last Filed: 01/10/25 16:46> Medical Records Attestation: I reviewed the patient's medical records. Medical records narrative: Prior ED visits in 2020 for atrial flutter. [facility] visit today for right foot and toe pain. Imaging Data Right Foot X-Ray: Radiologist's Impression: PROCEDURE: XR FOOT RT MIN 3V INDICATIONS: foot/toe pain, foot swelling TECHNIQUE: 3 views of the foot were acquired. COMPARISON: None. FINDINGS: Bones: No fractures or dislocations. No suspicious bony lesions. Soft tissues: No tibiotalar joint effusion. Achilles tendon appears normal. IMPRESSION: No acute bony abnormality. RLE Venous US: Radiologist's Impression: PROCEDURE: US PERIPH VENOUS LOW EXTREM RT INDICATIONS: lower leg swelling, on thinner, RLE pain TECHNIQUE: Real-time imaging, as well as color and pulse Doppler interrogation, were performed of the lower extremity deep veins from the inguinal ligament to the popliteal fossa, with documentation of the visualized calf veins. COMPARISON: None. FINDINGS: The common femoral, femoral, popliteal, and the visualized calf veins are normally compressible, and free of intraluminal thrombus. Color and pulse Doppler demonstrate normal phasic intraluminal flow. There is normal augmentation response to distal compression maneuver. IMPRESSION: No findings of lower extremity deep venous thrombosis. MDM Narrative Medical decision making narrative: 79 year-old gentleman with a past medical history of atrial fibrillation status post ablation on Xarelto, prostate cancer status post radiation in October of this year who presents to the emergency department after being sent by the walk- in clinic for right lower leg swelling x2 months and written right foot pain x1 year. Differential diagnosis includes but is not limited to arthritis of the right foot, degenerative changes of the right foot, fungal disease of the toenails, right lower extremity DVT, varicose veins, etc. On exam the patient is in no acute distress, nontoxic appearing, vital signs appropriate. He is bilateral 1+ pitting edema but more pronounced swelling of the right lower extremity extending up to the knee. He has onychomycosis and downward curling of the right toes. He denies pain medication at this time. We will proceed with x-ray of the right foot to evaluate for bony abnormalities an ultrasound of the right lower extremity to evaluate for potential DVT causing swelling. He does have good pulses and feet are neurovascularly intact. X-ray negative for fracture or acute bony abnormality. Ultrasound negative for lower extremity deep venous thrombosis. Suspect patient has chronic foot/toe pain is related to chronic arthritic changes of the toes/downward curvature and swelling may be related to venous stasis. Recommended rice therapy, compression socks, prompt podiatry follow up, Tylenol if needed for pain. Patient verbalized understanding of all information is with the plan. He is requesting discharge home. He is stable for discharge home. Discharge Plan Departure Patient Disposition: Home Clinical Impression: Chronic pain in right foot Instructions: DI for Foot Pain Activity Restrictions/Additional Instructions: Dear Mr. Lombardo, Thank you for coming to the emergency department today. You were evaluated for right foot pain and right lower leg swelling. Your ultrasound showed there is no blood clot in your right leg. Your x-ray of your foot showed no fractures. At this time I would like you to take Tylenol for pain and follow up with [facility] for further evaluation. Their addresses is [address] [place] [address] Phone number [phone]. Please use RICE therapy for your pain in addition to acetaminophen. Rest the painful area. Ice the area of pain/swelling for at least 15 minutes, 4x a day. Compress the area of swelling using compression socks. Elevate the painful or swollen extremity by supporting it above the level of the heart with pillows when sitting or laying. Please take Acetaminophen (Tylenol) for pain. This is available over the counter. You may take Acetaminophen 650 mg every 4-6 hours for pain. Do not exceed 3000 mg of Tylenol a day as this can cause liver damage. Please follow up with your primary care doctor within the next 2-3 days for ER follow-up. (If you do not have a PCP you can call [phone]. ?to schedule an appointment with an [facility] Primary Care Provider) IF YOU DEVELOP ANY NEW OR WORSENING SYMPTOMS, RETURN TO THE ER! Please read the attached instructions, they highlight more specific treatments and interventions for you at home. Thank you for letting me participate in your care, Charley Ponce PA-C Prescriptions: No Action [id number] [Centrum Silver Ultra Men's] 300-600-300 mcg tablet 1 tab PO DAILY simvastatin 10 mg tablet 10 mg PO DAILY metoprolol tartrate 37.5 mg tablet 37.5 mg PO BID Xarelto 20 mg tablet 20 mg PO DAILY Rx Instructions: must administer with evening meal tamsulosin 0.4 mg capsule 0.8 mg PO DAILY Qty: 60 12RF Referrals: Giovanni Vincent MD [Primary Care Provider] - Stand Alone Forms: Patient Portal/API/Survey ED Sign-out <Janie Kinsey DO - Last Filed: 01/11/25 22:35> Cosign ED Attending Cosgeronimoature Attestation: I was available for consultation.
[2025-01-10 16:51] VITALS: BP 155/86; PULSE 61; RESP 17; O2SAT 97
== END 2025-01-10 16:52 | disposition home or self-care (01) ==
PROVIDERS: Emergency Provider Physician Assistant; Family Provider Family Medicine; PCP Family Medicine
DX: M79.671 Pain in right foot (principal); R60.9 Edema, unspecified; I48.91 Unspecified atrial fibrillation; Z79.01 Long term (current) use of anticoagulants; C61 Malignant neoplasm of prostate
CPT/HCPCS: 73630; 93971; 99281; 99283

== ENCOUNTER → 2025-02-07 15:39 | Outpatient (CLI) | payer OTHER, SELFPAY ==
[2025-02-07 18:35] LABS: Prostate Specific Antigen < 0.064 ng/mL (0.10-4.00)
== END ==
LOC: LAB 15:40
PROVIDERS: Family Provider Family Medicine; PCP Family Medicine; Referring Provider Urology; Visit Provider Urology
DX: C61 Malignant neoplasm of prostate (principal)
CPT/HCPCS: 36415; 84153

== ENCOUNTER → 2025-05-07 15:51 | Outpatient (CLI) | payer OTHER, SELFPAY ==
[2025-05-07 18:38] LABS: Prostate Specific Antigen < 0.064 ng/mL (0.10-4.00)
== END ==
PROVIDERS: Family Provider Family Medicine; PCP Family Medicine; Referring Provider Urology; Visit Provider Family Medicine
DX: C61 Malignant neoplasm of prostate (principal)
CPT/HCPCS: 36415; 84153

== ENCOUNTER → 2025-08-08 15:07 | Outpatient (CLI) | payer OTHER, SELFPAY ==
[2025-08-08 17:12] LABS: Prostate Specific Antigen < 0.064 ng/mL (0.10-4.00)
== END ==
PROVIDERS: PCP Family Medicine; Referring Provider Urology; Visit Provider Urology
DX: C61 Malignant neoplasm of prostate (principal); N40.1 Benign prostatic hyperplasia with lower urinary tract symptoms; N13.8 Other obstructive and reflux uropathy
CPT/HCPCS: 36415; 84153